=== PATIENT | male | born 1970 | race Caucasian/White ===

== ENCOUNTER 2017-11-03 15:49 | Inpatient (IN) ==
--- NOTE | 2017-11-03 16:29 | Emergency Department Note ---
ED Disposition Clinical Impression: Delirium CAP (community acquired pneumonia) Qualifiers: Laterality: right Lung location: lower lobe of lung Qualified Code(s): J18.1 - Lobar pneumonia, unspecified organism Acute renal failure Qualifiers: Acute renal failure type: unspecified Qualified Code(s): N17.9 - Acute kidney failure, unspecified Disposition: Still a Patient Condition on Discharge: Fair - Critical Care Critical Care Time: No Attestation: On 11/03/17, the high probability of a clinically significant, sudden or life threatening deterioration of the following system(s) required my full and direct attention, intervention and personal management. The time I documented below is in addition to time spent performing reported procedures but includes the following listed in this critical care notation. Medical Decision Making - [place] Inquiry Pt receiving controlled substance: No Vital Signs: 11/03/17 15:55 11/03/17 16:20 Temperature 103.2 F H Temperature Source Oral Pulse Rate [Left Radial] 104 H Respiratory Rate 20 Blood Pressure [Right Arm] 152/84 Blood Pressure Mean [Right Arm] 106 Blood Pressure Position [Right Arm] Sitting 02 Sat by Pulse Oximetry 93 L Oxygen Delivery Method Room Air - Lab Data Lab Results 11/03/17 16:20: WBC 14.3 H, RBC 4.53 L, Hgb 13.6 L, Hct 39.0 L, MCV 86.2, MCH 30.0, MCHC 34.8, RDW 13.4, Plt Count 216 D, MPV 8.4, Neut % (Auto) 91.4 H, Lymph % (Auto) 4.4 L, [place] % (Auto) 3.7, Eos % (Auto) 0.2, Baso % (Auto) 0.3, Neut # (Auto) 13.1 H, Lymph # (Auto) 0.6 L, [place] # (Auto) 0.5, Eos # (Auto) 0.0 , Baso # (Auto) 0.0, Total Counted 100, Neutrophils % (Manual) 93 H, Band Neutrophils % 3.0, Lymphocytes % (Manual) 1 L, Monocytes % (Manual) 2, Metamyelocytes % 1.0, Platelet Estimate Normal, RBC Morphology Normal 11/03/17 16:20: Sodium 128 L, Potassium 3.8, Chloride 96 L, Carbon Dioxide 22, Anion Gap 13.8, BUN 18 D, Creatinine 2.25 H, Estimated Creat Clear 50, Estimated GFR 32 L, Est GFR ( Amer) 38 L, Glucose 116 H, Calcium 8.3 L, Total Bilirubin 0.7, AST 28 D, ALT 11 L D, Alkaline Phosphatase 107, Total Protein 6.4, Albumin 2.3 L, Globulin 4.1 H, Albumin/Globulin Ratio 0.6 L 11/03/17 16:20: Lactic Acid 1.5 11/03/17 17:00: Urine Color Yellow, Urine Appearance Clear, Urine pH 6.0, Ur Specific [place] >= 1.030, Urine Protein 2+, Urine Glucose (UA) Negative, Urine Ketones Negative, Urine Blood 3+, Urine Nitrate Negative, Urine Bilirubin Negative, Urine Urobilinogen 0.2, Ur Leukocyte Esterase Negative, Urine RBC 5-10 , Urine WBC 3-5, Ur Squamous Epith Cells 10-20, Urine Bacteria 2+, Hyaline Casts 3-5, Urine Mucus 2+ Result diagrams: 11/03/17 16:20 11/03/17 16:20 Orders (Tests/Meds): ED MEDICATIONS Generic Name Dose Route Start Last Admin Trade Name Freq PRN Reason Stop Dose Admin Acetaminophen 650 mg 11/03/17 17:23 Acetaminophen 325mg Tab PO 12/03/17 17:22 Q4HP PRN As Needed for Fever or Pain Amlodipine Besylate 10 mg 11/04/17 09:00 Norvasc 10mg Tablet PO 12/04/17 08:59 DAILY [facility] Aspirin 81 mg 11/04/17 09:00 Aspirin 81mg Chewable Tablet PO 12/04/17 08:59 DAILY [facility] Carvedilol 25 mg 11/03/17 21:00 Coreg 25mg Tablet PO 12/03/17 20:59 BID [facility] Ceftriaxone Sodium 1 gm/ 50 mls @ 100 mls/hr 11/04/17 17:15 Sodium Chloride IV 11/17/17 17:14 Q24H [facility] Protocol Sodium Chloride 1,000 mls @ 100 mls/hr 11/03/17 17:23 Sod Chlor 0.9% 1000ml Bag IV 12/03/17 17:22 .Q10H [facility]IK[facility] Azithromycin 500 mg/ Sodium 250 mls @ 250 mls/hr 11/04/17 17:15 Chloride IV 11/17/17 17:14 Q24H [facility] Protocol Non-Formulary Medication 80 mg 11/04/17 09:00 Atorvastatin Calcium [Atorvastatin 80mg Tab] PO 12/04/17 08:59 DAILY [facility] Non-Formulary Medication 60 mg 11/04/17 09:00 Isosorbide Mononitrate [Isosorbide Mononitrate Er] PO 12/04/17 08:59 DAILY [facility] Discontinued Medications Generic Name Dose Route Start Last Admin Trade Name Zafarq PRN Reason Stop Dose Admin Acetaminophen 650 mg 11/03/17 16:45 11/03/17 16:46 Acetaminophen 325mg Tab PO 11/03/17 16:46 650 mg ONCE ONE Administration Sodium Chloride 1,000 mls @ 999 mls/hr 11/03/17 16:30 11/03/17 16:25 Sod Chlor 0.9% 1000ml Bag IV 11/03/17 17:30 999 mls/hr .Q1H1M MAIKEL Administration Ceftriaxone Sodium 1 gm/ 50 mls @ 100 mls/hr 11/03/17 17:15 Sodium Chloride IV 11/17/17 17:14 Q24H [facility] Protocol Azithromycin 500 mg/ Sodium 250 mls @ 250 mls/hr 11/03/17 17:15 Chloride IV 11/17/17 17:14 Q24H [facility] Protocol Sodium Chloride 3 ml 11/03/17 17:01 Sodium Chloride 3% 15ml Neb IH 11/03/17 17:02 ONCE ONE ORDERS Category Date Time Status Drug Screen,Urine Stat Lab 11/03/17 17:00 Received Upper Respiratory Panel, PCR Stat Lab 11/03/17 17:00 Received Sputum Culture & Gram Stain Stat Micro 11/03/17 17:00 Received Urine Culture Stat Micro 11/03/17 17:00 Received - ECG Data Tracing #1 EKG interpreted by Gio Joseph MD: Rhythm: sinus tachycardia Rate: 101 [place]: normal Ectopy: none Conduction: normal ST Segment Changes: none T Wave Changes: none Q Waves: none No evidence of acute ischemia or injury - Physician Consults Physician Consulted: Carole Time: 17:12 Reason -: Admission Comment/Response: Agrees to admit the patient to the hospital. We discussed the patient's clinical information, including history, exam, laboratory and radiology results and ED course. Per hospital procedure, I will write temporary bridge inpatient orders on the patient. Specific orders requested by the admitting physician: Rocephin and Zithromax, IV fluids, recheck chemistry profile in the morning General Adult HPI - General Chief complaint: Altered Mental Status Stated complaint: Possible kidney failure Time Seen by Provider: 11/03/17 16:29 Mode of Arrival: Wheelchair Limitations: No Limitations Description of Symptoms (Recalled from ER Triage Doc. by RN): stated he has been having a fever, decreased appetite, cough and headache. States at times he has confusion, pt fell in the bathroom. says she witnessed the fall and he didnt hit anything just sat/fell on the toilet. All this started about 2 hours ago. - History of Present Illness HPI narrative: Ill for 2-3 days. Has a chronic cough, but in the past 2-3 days has begun producing sputum and has rhinorrhea. Has been running fevers. Was seen here 2 days ago and diagnosed with acute renal failure and urinary tract infection and was started on nitrofurantoin and blood pressure medication was decreased. Saw his sandwich hand the next day for follow-up. Since then has been feverish, delirious at times. Headaches episodically. Short of air. Continues with productive cough. - Related Data Home Medications Medication Instructions Recorded Confirmed Amlodipine Besylate [Amlodipine 10 mg PO DAILY 10/19/17 11/03/17 10mg Tab] Aspirin 81 mg PO DAILY 10/19/17 11/03/17 Atorvastatin Calcium [Atorvastatin 80 mg PO DAILY 10/19/17 11/03/17 80mg Tab] Carvedilol [Coreg 25mg Tablet] 25 mg PO BID 10/19/17 11/03/17 Isosorbide Mononitrate [Isosorbide 60 mg PO DAILY 10/19/17 11/03/17 Mononitrate ER] Nitrofurantoin Macrocrystal 100 mg PO BID 11/03/17 11/03/17 [Macrodantin 100mg capsule] Allergies Allergy/AdvReac Type Severity Reaction Status Date / Time lisinopril Allergy Verified 11/01/17 08:37 [facility] History I have reviewed the patient's past medical history: Yes Medical History: Denies:: Cancer, Diabetes Mellitus Type 1, Diabetes Mellitus Type 2, MRSA Amputation: No - Social History Smoking Status: Current every day smoker Tobacco Type: cigarettes Alcohol Intake: never - Psychiatric History Expresses thoughts of harming self/others: None Suicide Plan Description: No Plan ROS Obtained: Yes All systems reviewed & no additional complaints - Constitutional Constitutional: Reports fever(s), Reports weakness - ENT Ears, Nose, Mouth, and Throat: Reports nasal discharge - Cardiovascular Cardiovascular: Denies chest pain - Respiratory Respiratory: Yes cough, Yes dyspnea, Yes excessive phlegm production - Gastrointestinal Gastrointestingal: Denies: diarrhea, vomiting - Neurologic Neurologic: Reports confusion Physical Exam - General General appearance: alert, in no apparent distress - Head Head exam: atraumatic, normocephalic, normal inspection - Eye Eye exam: Present: normal appearance, PERRL, EOMI - ENT ENT exam: Present: normal exam, normal oropharynx, mucous membranes moist, TM's normal bilaterally, normal external ear exam - Neck Neck exam: Present: normal inspection, full ROM, trachea midline. Absent: meningismus, lymphadenopathy - Chest Chest inspection: Present: normal inspection, symmetric chest wall rise. Absent : tenderness - Respiratory Respiratory exam: Present: normal lung sounds bilaterally, other (Tachypnea and frequent cough). Absent: respiratory distress - Cardiovascular Cardiovascular exam: Present: regular rate, normal rhythm. Absent: JVD - Abdominal Exam Abdominal exam: Present: soft, normal bowel sounds. Absent: distention, tenderness, guarding - Extremities Exam Extremities exam: Present: normal inspection, full ROM, normal capillary refill. Absent: calf tenderness - Back Exam Back exam: Present: normal inspection. Absent: tenderness - Neurological Exam Neurological exam: Present: alert, oriented X3 - Psychiatric Psychiatric exam: Present: normal affect, normal mood - Skin Skin exam: Present: warm, dry, intact, normal color - Lymphatic Lymphatic Findings: no adenopathy
[2017-11-03 16:37] LABS: Basophils % 0.3 % (0.1-2.0); Eosinophils % 0.2 % (0.1-12.0); Hemoglobin 13.6 g/dL (14.1-18.0); Lymphocytes # 0.6 K/mm3 (0.7-4.5); Lymphocytes % 4.4 K/mm3 (10-50); Mean Corpuscular HGB Conc 34.8 g/dL (31.8-35.4); Mean Corpuscular Volume 86.2 fl (80-94); Mean Platelet Volume 8.4 fl (7.4-10.4); Monocytes # 0.5 K/mm3 (0.1-1.0); Monocytes % 3.7 % (1.7-9.3); Neutrophils # 13.1 K/mm3 (1.8-7.8); Neutrophils % 91.4 % (37.0-80.0); Platelet Count 216 K/mm3 (142-424); Red Blood Count 4.53 M/mm3 (4.60-6.20); Red Cell Distribution Width 13.4 % (11.5-17.5); White Blood Count 14.3 K/mm3 (4.8-10.8)
[2017-11-03 16:48] LABS: Albumin Level 2.3 gm/dL (3.4-5.0); Albumin/Globulin Ratio 0.6 (1.1-1.8); Anion Gap 13.8 mEq/L (5-15); Bilirubin,Total 0.7 mg/dL (0.2-1.0); Calcium 8.3 mg/dL (8.5-10.1); Globulin 4.1 gm/dl (1.3-3.2); Potassium 3.8 mmoL/L (3.5-5.1); Total Protein,Serum 6.4 gm/dL (6.4-8.2)
[2017-11-03 17:01] LABS: Lymphocytes % 1 % (10-50); Monocytes % 2 % (2-9); Neutrophils % 93 % (42-76); Total Cells Counted 100
[2017-11-03 17:02] LABS: RBC Morphology Normal
[2017-11-03 17:11] LABS: Microscopic, Urine URINE MICROSCOPIC (MICROSCOPIC)
[2017-11-03 17:13] LABS: Coronavirus 229E Not Detected (NotDetected); Coronavirus NL63 Not Detected (NotDetected); Coronavirus OC43 Not Detected (NotDetected); Coronovirus HKU1,PCR Not Detected (NotDetected)
[2017-11-03 17:18] LABS: Appearance,Urine CLEAR (Clear); Bilirubin,Urine Negative (Negative); Blood, Urine 3+ (Negative); Color,Urine YELLOW (Yellow); Glucose,Urine (UA) Negative (Negative); Ketones,Urine Negative (Negative); Leukocyte Esterase,Urine Negative (Negative); Protein,Urine 2+ (Negative); Specific Gravity, Urine >= 1.030 (1.005-1.030); Urobilinogen,Urine 0.2 EU/dl (0.2)
[2017-11-03 17:38] LABS: Bacteria,Urine 2+ /lpf; Mucus,Urine 2+ /lpf
[2017-11-03 17:56] LABS: Amphetamine/Metha Screen,Urine Negative ng/mL (<1000); Barbiturates Screen,Urine Negative ng/mL (<200); Benzodiazepines Screen,Urine Negative ng/mL (200); Cannabinoid Screen,Urine Negative ng/mL (<50); Cocaine Screen,Urine Negative ng/g (<300); Methadone Screen,Urine Negative ng/mL (<300); Opiate Screen,Urine Negative ng/mL (<300); Phencyclidine Screen,Urine Negative ng/mL (<25)
[2017-11-04 07:15] LABS: Basophils % 0.2 % (0.1-2.0); Eosinophils % 0.1 % (0.1-12.0); Hemoglobin 13.5 g/dL (14.1-18.0); Lymphocytes # 0.5 K/mm3 (0.7-4.5); Lymphocytes % 4.4 K/mm3 (10-50); Mean Corpuscular HGB Conc 34.6 g/dL (31.8-35.4); Mean Corpuscular Hemoglobin 30.7 pg (27.0-31.2); Mean Corpuscular Volume 88.8 fl (80-94); Mean Platelet Volume 8.8 fl (7.4-10.4); Monocytes # 0.2 K/mm3 (0.1-1.0); Monocytes % 1.6 % (1.7-9.3); Neutrophils % 93.7 % (37.0-80.0); Platelet Count 206 K/mm3 (142-424); Red Blood Count 4.39 M/mm3 (4.60-6.20); Red Cell Distribution Width 13.8 % (11.5-17.5); White Blood Count 10.6 K/mm3 (4.8-10.8)
--- NOTE | 2017-11-04 07:29 | Pharmacy Consult Notes ---
[facility] Pharmacy VTE Monitoring - Patient Demographics Admission date: 11/03/17 Report Date: 11/04/17 Time: 07:28 Allergies/Adverse Reactions: Patient Allergies lisinopril Allergy (Verified 11/01/17 08:37) Height: 1.8 m Weight: 91.626 kg Patient Problems: Current Active Problems Acute renal failure (Acute) CAP (community acquired pneumonia) (Acute) Delirium (Acute) - VTE Risk Labs: VTE Related Lab Results Hgb 13.5 g/dL (14.1-18.0) L 11/04/17 06:44 Hct 39.0 % (42.0-52.0) L 11/04/17 06:44 Plt Count 206 K/mm3 (142-424) 11/04/17 06:44 BUN 18 mg/dL (7-18) D 11/03/17 16:20 Creatinine 2.25 mg/dL (0.70-1.30) H 11/03/17 16:20 Estimated Creat Clear 50 mL/min (0-300) 11/03/17 16:20 Was VTE Risk Assessment Performed: Yes VTE Risk Level: Low Risk - Prophylaxis VTE Prophylaxis Ordered?: Yes Types of VTE Prophylaxis: TEDS Knee High Location of Applied Device: Bilateral Lower Extremeties - VTE Diagnosis Confirmed Treatment or plan recommended: Continue Current Treatment
--- NOTE | 2017-11-04 08:47 | History & Physical Report ---
*Admission Date: 11/03/17 <Makenzie Dey 11/04/17 08:50> *Chief complaint: SOA, cough, increased UOP <Makenzie Dey 11/04/17 08:50> *History of present illness: Mr. Salguero is a 47-year-old male patient of Dr. Jay. He states last Wednesday he began having body aches and a fever. He presented to the emergency room on Wednesday and was tested for flu and strep. These were both negative he was found to have a UTI and renal failure. Some of his medications were adjusted and he was started on antibiotics for a UTI. He then followed up with his [employer] on Wednesday who agreed with the medication changes and wanted him to follow-up in his office on Wednesday. The patient states he developed a cough and became short of breath. He continued to have suprapubic pain and was having diarrhea. He was aching and therefore presented to the emergency room. He was found to have a pneumonia as well as a UTI. He was admitted for further evaluation and treatment. Of note, he does work in a [employer]. <Makenzie Dey 11/04/17 08:53> [facility] History Medical History: Reports:: Hyperlipidemia, Hypertension, Kidney Stones, Myocardial Infarction Denies:: Cancer, Diabetes Mellitus Type 1, Diabetes Mellitus Type 2, MRSA < Makenzie Dey 11/04/17 08:50> Other Medical History: Reports: Sinus Problems <Makenzie Dey 11/04/17 08:50 > Other Surgeries: Yes: Cardiac Catheterization <Makenzie Dey 11/04/17 08:50> Amputation: No <Makenzie Dey 11/04/17 08:50> Fractures: No <Makenzie Dey 11/04/17 08:50> - *Social History Educational Level: Attended High School <Makenzie Dey 11/04/17 08:50> Smoking Status: Current every day smoker <Makenzie Dey 11/04/17 08:50> Tobacco Type: cigarettes <Makenzie Dey 11/04/17 08:50> # Packs/Day (cigarettes): 1 <Makenzie Dey 11/04/17 08:50> Alcohol Intake: never <Makenzie Dey 11/04/17 08:50> Occupational Status: employed <Makenzie Dey 11/04/17 08:50> Housing: house <Makenzie Dey 11/04/17 08:50> Household Members: significant other, family, children <aMkenzie Dey 08:50> - Psychiatric History Expresses thoughts of harming self/others: None <Makenzie Dey 11/04/17 08: 50> Suicide Plan Description: No Plan <Makenzie Dey 11/04/17 08:50> *Family Hx:: Diabetes, Heart Attack, Hyperlipidemia, Hypertension <Makenzie Dey 11/04/17 08:50> Review of Systems - Constitutional Reports body ache(s), Reports chills, Reports fever(s) <Makenzie Dey 08:50> - Eyes Denies blurry vision, Denies double vision <Makenzie Dey 11/04/17 08:50> - ENT Reports nasal congestion, Denies sore throat <Makenzie Dey 11/04/17 08:50> - *Cardiovascular Reports chest pain (with cough), Denies rapid, pounding, or irregular heartbeat <Bryant Deya 11/04/17 08:50> - *Respiratory Reports cough, Reports shortness of breath, Reports wheezing <Bryant Deya 11/04/17 08:50> - *Gastrointestinal Reports loose stools, Denies nausea, Denies vomiting <Makenzie Dey 08:50> - *Genitourinary Reports difficulty urinating, Reports painful urination <Bryant Deya 11/04 08:50> - *Musculoskeletal Reports joint pain (knees and ankles) <Bryant Deya 11/04/17 08:50> - *Neurologic Reports confusion, Reports headache(s), Reports dizziness, Reports weakness < Makenzie Dey 11/04/17 08:50> Meds Home Medications Medication Instructions Recorded Confirmed Type Amlodipine Besylate [Amlodipine 10 mg PO DAILY 10/19/17 11/03/17 History 10mg Tab] Aspirin 81 mg PO DAILY 10/19/17 11/03/17 History Atorvastatin Calcium [Atorvastatin 80 mg PO DAILY 10/19/17 11/03/17 History 80mg Tab] Carvedilol [Coreg 25mg Tablet] 25 mg PO BID 10/19/17 11/03/17 History Isosorbide Mononitrate [Isosorbide 60 mg PO DAILY 10/19/17 11/03/17 History Mononitrate ER] Nitrofurantoin Macrocrystal 100 mg PO BID 11/03/17 11/03/17 History [Macrodantin 100mg capsule] <CaroleTristonRohan - 11/04/17 09:19> Allergies Allergy/AdvReac Type Severity Reaction Status Date / Time lisinopril Allergy Verified 11/01/17 08:37 <Rohan Lam - 11/04/17 09:19> Exam Vital signs and Labs for Last 24 Hours: Temp Pulse Resp BP Pulse Ox 98.5 F 99 H 20 106/62 95 11/04/17 08:00 11/04/17 08:00 11/04/17 08:00 11/04/17 08:00 11/04/17 08:00 Laboratory Results - last 24 hr 11/03/17 16:20: WBC 14.3 H, RBC 4.53 L, Hgb 13.6 L, Hct 39.0 L, MCV 86.2, MCH 30.0, MCHC 34.8, RDW 13.4, Plt Count 216 D, MPV 8.4, Neut % (Auto) 91.4 H, Lymph % (Auto) 4.4 L, [place] % (Auto) 3.7, Eos % (Auto) 0.2, Baso % (Auto) 0.3, Neut # (Auto) 13.1 H, Lymph # (Auto) 0.6 L, [place] # (Auto) 0.5, Eos # (Auto) 0.0 , Baso # (Auto) 0.0, Total Counted 100, Neutrophils % (Manual) 93 H, Band Neutrophils % 3.0, Lymphocytes % (Manual) 1 L, Monocytes % (Manual) 2, Metamyelocytes % 1.0, Platelet Estimate Normal, RBC Morphology Normal 11/03/17 16:20: Sodium 128 L, Potassium 3.8, Chloride 96 L, Carbon Dioxide 22, Anion Gap 13.8, BUN 18 D, Creatinine 2.25 H, Estimated Creat Clear 50, Estimated GFR 32 L, Est GFR ( Amer) 38 L, Glucose 116 H, Calcium 8.3 L, Total Bilirubin 0.7, AST 28 D, ALT 11 L D, Alkaline Phosphatase 107, Total Protein 6.4, Albumin 2.3 L, Globulin 4.1 H, Albumin/Globulin Ratio 0.6 L 11/03/17 16:20: Lactic Acid 1.5 11/03/17 17:00: Urine Color Yellow, Urine Appearance Clear, Urine pH 6.0, Ur Specific [place] >= 1.030, Urine Protein 2+, Urine Glucose (UA) Negative, Urine Ketones Negative, Urine Blood 3+, Urine Nitrate Negative, Urine Bilirubin Negative, Urine Urobilinogen 0.2, Ur Leukocyte Esterase Negative, Urine RBC 5-10 , Urine WBC 3-5, Ur Squamous Epith Cells 10-20, Urine Bacteria 2+, Hyaline Casts 3-5, Urine Mucus 2+ 11/03/17 17:00: Urine Opiates Screen Negative, Ur Barbituates Screen Negative, Ur Phencyclidine Scrn Negative, Ur Amphetamines Screen Negative, U Methamphetamines Scrn Negative, U Benzodiazepines Scrn Negative, Urine Cocaine Screen Negative, U Marijuana (THC) Screen Negative 11/03/17 17:00: Chlamy pneumoniae PCR Not detected, Adenovirus (PCR) Not detected, B.parapertussis DNA PCR Not detected, Coronavirus OC43 (PCR) Not detected, Coronavirus HKU1 (PCR) Not detected, Coronavirus 229E (PCR) Not detected, Coronavirus NL63 (PCR) Not detected, Human Metapneumovir PCR Not detected, Influenza A (H1) PCR Not detected, Influ A (H1N1/09) PCR Not detected , Influenza A (H3) PCR Not detected, Influenza Type A (PCR) Not detected, Influenza Type B (PCR) Not detected, M. pneumoniae (PCR) Not detected, Parainfluenza 1 (PCR) Not detected, Parainfluenza 2 (PCR) Not detected, Parainfluenza 3 (PCR) Not detected, Parainfluenza 4 (PCR) Not detected, RSV (PCR ) Not detected, Entero/Rhino (PCR) Not detected 11/04/17 06:44: WBC 10.6 D, RBC 4.39 L, Hgb 13.5 L, Hct 39.0 L, MCV 88.8, MCH 30.7, MCHC 34.6, RDW 13.8, Plt Count 206, MPV 8.8, Neut % (Auto) 93.7 H, Lymph % (Auto) 4.4 L, [place] % (Auto) 1.6 L, Eos % (Auto) 0.1, Baso % (Auto) 0.2, Neut # (Auto) 10.0 H, Lymph # (Auto) 0.5 L, [place] # (Auto) 0.2, Eos # (Auto) 0.0, Baso # (Auto) 0.0 11/04/17 06:44: Sodium 133 L, Potassium 4.0, Chloride 100, Carbon Dioxide 22, Anion Gap 15.0, BUN 24 H D, Creatinine 2.37 H, Estimated Creat Clear 51, Estimated GFR 30 L, Est GFR ( Amer) 36 L, Glucose 105 <UnderwoodRohan - 11/04/17 09:19> Temp Pulse Resp BP Pulse Ox 98.7 F 84 20 103/46 95 11/04/17 04:00 11/04/17 04:00 11/04/17 04:00 11/04/17 04:00 11/04/17 04:00 Laboratory Results - last 24 hr 11/03/17 16:20: WBC 14.3 H, RBC 4.53 L, Hgb 13.6 L, Hct 39.0 L, MCV 86.2, MCH 30.0, MCHC 34.8, RDW 13.4, Plt Count 216 D, MPV 8.4, Neut % (Auto) 91.4 H, Lymph % (Auto) 4.4 L, [place] % (Auto) 3.7, Eos % (Auto) 0.2, Baso % (Auto) 0.3, Neut # (Auto) 13.1 H, Lymph # (Auto) 0.6 L, [place] # (Auto) 0.5, Eos # (Auto) 0.0 , Baso # (Auto) 0.0, Total Counted 100, Neutrophils % (Manual) 93 H, Band Neutrophils % 3.0, Lymphocytes % (Manual) 1 L, Monocytes % (Manual) 2, Metamyelocytes % 1.0, Platelet Estimate Normal, RBC Morphology Normal 11/03/17 16:20: Sodium 128 L, Potassium 3.8, Chloride 96 L, Carbon Dioxide 22, Anion Gap 13.8, BUN 18 D, Creatinine 2.25 H, Estimated Creat Clear 50, Estimated GFR 32 L, Est GFR ( Amer) 38 L, Glucose 116 H, Calcium 8.3 L, Total Bilirubin 0.7, AST 28 D, ALT 11 L D, Alkaline Phosphatase 107, Total Protein 6.4, Albumin 2.3 L, Globulin 4.1 H, Albumin/Globulin Ratio 0.6 L 11/03/17 16:20: Lactic Acid 1.5 11/03/17 17:00: Urine Color Yellow, Urine Appearance Clear, Urine pH 6.0, Ur Specific [place] >= 1.030, Urine Protein 2+, Urine Glucose (UA) Negative, Urine Ketones Negative, Urine Blood 3+, Urine Nitrate Negative, Urine Bilirubin Negative, Urine Urobilinogen 0.2, Ur Leukocyte Esterase Negative, Urine RBC 5-10 , Urine WBC 3-5, Ur Squamous Epith Cells 10-20, Urine Bacteria 2+, Hyaline Casts 3-5, Urine Mucus 2+ 11/03/17 17:00: Urine Opiates Screen Negative, Ur Barbituates Screen Negative, Ur Phencyclidine Scrn Negative, Ur Amphetamines Screen Negative, U Methamphetamines Scrn Negative, U Benzodiazepines Scrn Negative, Urine Cocaine Screen Negative, U Marijuana (THC) Screen Negative 11/03/17 17:00: Chlamy pneumoniae PCR Not detected, Adenovirus (PCR) Not detected, B.parapertussis DNA PCR Not detected, Coronavirus OC43 (PCR) Not detected, Coronavirus HKU1 (PCR) Not detected, Coronavirus 229E (PCR) Not detected, Coronavirus NL63 (PCR) Not detected, Human Metapneumovir PCR Not detected, Influenza A (H1) PCR Not detected, Influ A (H1N1/09) PCR Not detected , Influenza A (H3) PCR Not detected, Influenza Type A (PCR) Not detected, Influenza Type B (PCR) Not detected, M. pneumoniae (PCR) Not detected, Parainfluenza 1 (PCR) Not detected, Parainfluenza 2 (PCR) Not detected, Parainfluenza 3 (PCR) Not detected, Parainfluenza 4 (PCR) Not detected, RSV (PCR ) Not detected, Entero/Rhino (PCR) Not detected 11/04/17 06:44: WBC 10.6 D, RBC 4.39 L, Hgb 13.5 L, Hct 39.0 L, MCV 88.8, MCH 30.7, MCHC 34.6, RDW 13.8, Plt Count 206, MPV 8.8, Neut % (Auto) 93.7 H, Lymph % (Auto) 4.4 L, [place] % (Auto) 1.6 L, Eos % (Auto) 0.1, Baso % (Auto) 0.2, Neut # (Auto) 10.0 H, Lymph # (Auto) 0.5 L, [place] # (Auto) 0.2, Eos # (Auto) 0.0, Baso # (Auto) 0.0 11/04/17 06:44: Sodium 133 L, Potassium 4.0, Chloride 100, Carbon Dioxide 22, Anion Gap 15.0, BUN 24 H D, Creatinine 2.37 H, Estimated Creat Clear 51, Estimated GFR 30 L, Est GFR ( Amer) 36 L, Glucose 105 <Makenzie Dey - 11/04/17 08:50> I & O for Last 24 hours: Intake & Output 11/01/17 11/02/17 11/03/17 11/04/17 11:59 11:59 11:59 11:59 Intake Total 120 / 120 Balance 120 / 120 Weight 202 lb <Rohan Lam - 11/04/17 09:19> Intake & Output 11/01/17 11/02/17 11/03/17 11/04/17 11:59 11:59 11:59 11:59 Weight 202 lb <Makenzie Dey - 11/04/17 08:50> Microbiology Reports for the Last 24 Hours: Microbiology 11/03/17 17:00 Sputum - Expectorated Sputum Gram Stain - Final 11/03/17 17:00 Sputum - Expectorated Sputum Sputum Culture - Preliminary 11/03/17 17:00 Urine,Clean Catch Urine Culture - Preliminary <Rohan Lam - 11/04/17 09:19> Microbiology 11/03/17 17:00 Sputum - Expectorated Sputum Gram Stain - Final 11/03/17 17:00 Sputum - Expectorated Sputum Sputum Culture - Preliminary 11/03/17 17:00 Urine,Clean Catch Urine Culture - Preliminary <Makenzie Dey - 11/04/17 08:50> - Constitutional Comments: Does not appear to feel well, coughing [facility] 08:[facility]> - *Routine HEENT Exam Head: Present: normocephalic, atraumatic [facility] 11/04/17 08:50> Eye: Present: EOMI, PERRL [facility] 08:[facility]> ENT: Present: mucous membranes moist [facility] 11/04/17 08:50> - *Routine Neck Exam Present: supple, full ROM [facility]/17 08:50> - *Routine Respiratory Exam Present: wheezes (bilaterally) [facility] 11/04/17 08:50> - *Routine Cardiovascular Exam Present: RRR [facility] 11/04/17 08:50> - *Routine Abdominal Exam Present: soft, normoactive bowel sounds, tenderness (suprapubic) [facility] 11/04/17 08:50> - *Routine Extremities Exam Absent: edema [facility] 11/04/17 08:50> - *Routine Skin Exam Present: intact [facility] 11/04/17 08:50> - *Routine Neurological Exam Present: alert, oriented X3 [facility] 11/04/17 08:50> H&P: Result - Labs Labs: Short CBC 11/03/17 11/04/17 Range/Units 16:20 06:44 WBC 14.3 H 10.6 D (4.8-10.8) K/mm3 Hgb 13.6 L 13.5 L (14.1-18.0) g/dL Hct 39.0 L 39.0 L (42.0-52.0) % Plt Count 216 D 206 (142-424) K/mm3 BMP 11/03/17 11/04/17 16:20 06:44 Sodium 128 L 133 L Potassium 3.8 4.0 Chloride 96 L 100 Carbon Dioxide 22 22 BUN 18 D 24 H D Creatinine 2.25 H 2.37 H Glucose 116 H 105 Calcium 8.3 L Liver Function 11/03/17 Range/Units 16:20 Total Bilirubin 0.7 (0.2-1.0) mg/dL AST 28 D (15-37) U/L ALT 11 L D (12-78) U/L Alkaline Phosphatase 107 (46-116) U/L Albumin 2.3 L (3.4-5.0) gm/dL Urine 11/03/17 Range/Units 17:00 Urine Color Yellow (Yellow) Urine Appearance Clear (Clear) Urine pH 6.0 (5.0-8.5) Ur Specific [place] >= 1.030 (1.005-1.030) Urine Protein 2+ (Negative) Urine Glucose (UA) Negative (Negative) <Rohan Lam - 11/04/17 09:19> <Makenzie Dey - 11/04/17 08:50> - Impressions Head CT - nothing acute CXR - RLL pneumonia <Makenzie Dey - 11/04/17 08:50> Assessment and Plan (1) CAP (community acquired pneumonia) Current visit: Yes Status: Acute Qualifiers: Laterality: right Lung location: lower lobe of lung Qualified Code(s): J18.1 - Lobar pneumonia, unspecified organism Category: Medical Code(s): J18.9 - Pneumonia, unspecified organism (2) Urinary tract infection Current visit: No Status: Acute Qualifiers: Urinary tract infection type: site unspecified Hematuria presence: without hematuria Qualified Code(s): N39.0 - Urinary tract infection, site not specified Category: Medical Code(s): N39.0 - Urinary tract infection, site not specified (3) Acute renal failure Current visit: Yes Status: Acute Qualifiers: Acute renal failure type: unspecified Qualified Code(s): N17.9 - Acute kidney failure, unspecified Category: Medical Code(s): N17.9 - Acute kidney failure, unspecified (4) Delirium Current visit: Yes Status: Acute Category: Medical Code(s): R41.0 - Disorientation, unspecified (5) Hyperlipidemia Current visit: Yes Status: Chronic Category: Medical Code(s): E78.5 - Hyperlipidemia, unspecified (6) Hypertension Current visit: No Status: Chronic Qualifiers: Hypertension type: unspecified Qualified Code(s): I10 - Essential (primary ) hypertension Category: Medical Code(s): I10 - Essential (primary) hypertension (7) Musculoskeletal back pain Current visit: No Status: Acute Category: Medical Code(s): M54.9 - Dorsalgia, unspecified <Rohan Lam - 11/04/17 09:19> (1) CAP (community acquired pneumonia) Current visit: Yes Status: Acute Qualifiers: Laterality: right Lung location: lower lobe of lung Qualified Code(s): J18.1 - Lobar pneumonia, unspecified organism Category: Medical Code(s): J18.9 - Pneumonia, unspecified organism (2) Urinary tract infection Current visit: No Status: Acute Qualifiers: Urinary tract infection type: site unspecified Hematuria presence: without hematuria Qualified Code(s): N39.0 - Urinary tract infection, site not specified Category: Medical Code(s): N39.0 - Urinary tract infection, site not specified (3) Acute renal failure Current visit: Yes Status: Acute Qualifiers: Acute renal failure type: unspecified Qualified Code(s): N17.9 - Acute kidney failure, unspecified Category: Medical Code(s): N17.9 - Acute kidney failure, unspecified (4) Delirium Current visit: Yes Status: Acute Category: Medical Code(s): R41.0 - Disorientation, unspecified (5) Hyperlipidemia Current visit: Yes Status: Chronic Category: Medical Code(s): E78.5 - Hyperlipidemia, unspecified (6) Hypertension Current visit: No Status: Chronic Qualifiers: Hypertension type: unspecified Qualified Code(s): I10 - Essential (primary ) hypertension Category: Medical Code(s): I10 - Essential (primary) hypertension (7) Musculoskeletal back pain Current visit: No Status: Acute Category: Medical Code(s): M54.9 - Dorsalgia, unspecified <Makenzie Dey - 11/04/17 08:51> - Assessment and plan all Dx Assessment and Plan for all problems:: Saw patient, agree with above note. <Rohan Lam - 11/04/17 09:19> The patient has been started on antibiotics. Will await urine culture and sputum culture results. Will add duo nebs today. <Makenzie Dey - 11/04/17 08:53>
[2017-11-04 11:45] LABS: Lymphocytes % 6 % (10-50); Monocytes % 1 % (2-9); Neutrophils % 85 % (42-76); Total Cells Counted 100
[2017-11-04 11:49] LABS: RBC Morphology Normal
[2017-11-05 03:54] LABS: Creatine Kinase 331 U/L (39-308)
--- NOTE | 2017-11-05 08:26 | Progress Note ---
<Makenzie Dey - Last Filed: 11/05/17 08:24> Internal Medicine - PN: Subj *Date: 11/05/17 *Time: 08:24 Interval history: Patient states he is feeling slightly better today. He thinks his suprapubic pain is a little bit worse, but his shortness of breath has improved. He is still coughing up sputum. He slept off and on throughout the night and was able to eat a small amount of breakfast. Exam Vital signs and Labs for Last 24 Hours: Temp Pulse Resp BP Pulse Ox 99.4 F 104 H 24 155/81 91 L 11/05/17 07:46 11/05/17 07:46 11/05/17 07:46 11/05/17 07:46 11/05/17 07:46 Laboratory Results - last 24 hr 11/04/17 06:44: Total Counted 100, Neutrophils % (Manual) 85 H, Band Neutrophils % 8.0, Lymphocytes % (Manual) 6 L, Monocytes % (Manual) 1 L, Platelet Estimate Normal, RBC Morphology Normal 11/05/17 03:20: Total Creatine Kinase 331 H, CK-MB (CK-2) 0.9, CK-MB (CK-2) Rel Index 0.3, Troponin I < 0.02 I & O for Last 24 hours: Intake & Output 11/02/17 11/03/17 11/04/17 11/05/17 11:59 11:59 11:59 11:59 Intake Total 120 / 120 2749 / 2749 Balance 120 / 120 2749 / 2749 Weight 202 lb Microbiology Reports for the Last 24 Hours: Microbiology 11/03/17 17:00 Sputum - Expectorated Sputum Gram Stain - Final 11/03/17 17:00 Sputum - Expectorated Sputum Sputum Culture - Preliminary 11/03/17 17:00 Urine,Clean Catch Urine Culture - Preliminary - Constitutional no acute distress - *Routine Respiratory Exam Present: rales (RLL), wheezes (less) - *Routine Cardiovascular Exam Present: RRR - *Routine Abdominal Exam Present: soft, normoactive bowel sounds, tenderness (suprapubic) - *Routine Extremities Exam Absent: edema Assessment and Plan (1) CAP (community acquired pneumonia) Current visit: Yes Status: Acute Qualifiers: Laterality: right Lung location: lower lobe of lung Qualified Code(s): J18.1 - Lobar pneumonia, unspecified organism Category: Medical Code(s): J18.9 - Pneumonia, unspecified organism (2) Urinary tract infection Current visit: No Status: Acute Qualifiers: Urinary tract infection type: site unspecified Hematuria presence: without hematuria Qualified Code(s): N39.0 - Urinary tract infection, site not specified Category: Medical Code(s): N39.0 - Urinary tract infection, site not specified (3) Acute renal failure Current visit: Yes Status: Acute Qualifiers: Acute renal failure type: unspecified Qualified Code(s): N17.9 - Acute kidney failure, unspecified Category: Medical Code(s): N17.9 - Acute kidney failure, unspecified (4) Delirium Current visit: Yes Status: Acute Category: Medical Code(s): R41.0 - Disorientation, unspecified (5) Hyperlipidemia Current visit: Yes Status: Chronic Category: Medical Code(s): E78.5 - Hyperlipidemia, unspecified (6) Hypertension Current visit: No Status: Chronic Qualifiers: Hypertension type: unspecified Qualified Code(s): I10 - Essential (primary ) hypertension Category: Medical Code(s): I10 - Essential (primary) hypertension (7) Musculoskeletal back pain Current visit: No Status: Acute Category: Medical Code(s): M54.9 - Dorsalgia, unspecified - Assessment and plan all Dx Assessment and Plan for all problems:: Awaiting chest x-ray report. We will get labs tomorrow. <Rohan Lam - Last Filed: 11/05/17 08:55> Internal Medicine - PN: Subj *Date: 11/05/17 *Time: 08:54 Exam Vital signs and Labs for Last 24 Hours: Temp Pulse Resp BP Pulse Ox 99.4 F 104 H 24 155/81 91 L 11/05/17 07:46 11/05/17 07:46 11/05/17 07:46 11/05/17 07:46 11/05/17 07:46 Laboratory Results - last 24 hr 11/03/17 17:00: Urine Color Yellow, Urine Appearance Clear, Urine pH 6.0, Ur Specific [place] >= 1.030, Urine Protein 2+, Urine Glucose (UA) Negative, Urine Ketones Negative, Urine Blood 3+, Urine Nitrate Negative, Urine Bilirubin Negative, Urine Urobilinogen 0.2, Ur Leukocyte Esterase Negative, Urine RBC 5-10 , Urine WBC 3-5, Ur Squamous Epith Cells 10-20, Urine Bacteria 2+, Hyaline Casts 3-5, Urine Mucus 2+ 11/04/17 06:44: Total Counted 100, Neutrophils % (Manual) 85 H, Band Neutrophils % 8.0, Lymphocytes % (Manual) 6 L, Monocytes % (Manual) 1 L, Platelet Estimate Normal, RBC Morphology Normal 11/05/17 03:20: Total Creatine Kinase 331 H, CK-MB (CK-2) 0.9, CK-MB (CK-2) Rel Index 0.3, Troponin I < 0.02 I & O for Last 24 hours: Intake & Output 11/02/17 11/03/17 11/04/17 11/05/17 11:59 11:59 11:59 11:59 Intake Total 120 / 120 2749 / 2749 Balance 120 / 120 2749 / 2749 Weight 202 lb Microbiology Reports for the Last 24 Hours: Microbiology 11/03/17 17:00 Urine,Clean Catch Urine Culture - Preliminary Gram Positive Cocci 11/03/17 17:00 Sputum - Expectorated Sputum Gram Stain - Final 11/03/17 17:00 Sputum - Expectorated Sputum Sputum Culture - Preliminary Assessment and Plan (1) CAP (community acquired pneumonia) Current visit: Yes Status: Acute Qualifiers: Laterality: right Lung location: lower lobe of lung Qualified Code(s): J18.1 - Lobar pneumonia, unspecified organism Category: Medical Code(s): J18.9 - Pneumonia, unspecified organism (2) Urinary tract infection Current visit: No Status: Acute Qualifiers: Urinary tract infection type: site unspecified Hematuria presence: without hematuria Qualified Code(s): N39.0 - Urinary tract infection, site not specified Category: Medical Code(s): N39.0 - Urinary tract infection, site not specified (3) Acute renal failure Current visit: Yes Status: Acute Qualifiers: Acute renal failure type: unspecified Qualified Code(s): N17.9 - Acute kidney failure, unspecified Category: Medical Code(s): N17.9 - Acute kidney failure, unspecified (4) Delirium Current visit: Yes Status: Acute Category: Medical Code(s): R41.0 - Disorientation, unspecified (5) Hyperlipidemia Current visit: Yes Status: Chronic Category: Medical Code(s): E78.5 - Hyperlipidemia, unspecified (6) Hypertension Current visit: No Status: Chronic Qualifiers: Hypertension type: unspecified Qualified Code(s): I10 - Essential (primary ) hypertension Category: Medical Code(s): I10 - Essential (primary) hypertension (7) Musculoskeletal back pain Current visit: No Status: Acute Category: Medical Code(s): M54.9 - Dorsalgia, unspecified (8) Diarrhea Current visit: Yes Status: Acute Category: Medical Code(s): R19.7 - Diarrhea, unspecified - Assessment and plan all Dx Assessment and Plan for all problems:: Saw patient, will check diarrhea panel today.
[2017-11-06 07:03] LABS: Basophils % 0.2 % (0.1-2.0); Eosinophils % 0.4 % (0.1-12.0); Hematocrit 40.3 % (42.0-52.0); Hemoglobin 12.8 g/dL (14.1-18.0); Lymphocytes # 0.4 K/mm3 (0.7-4.5); Lymphocytes % 4.9 K/mm3 (10-50); Mean Corpuscular HGB Conc 31.6 g/dL (31.8-35.4); Mean Corpuscular Hemoglobin 28.9 pg (27.0-31.2); Mean Corpuscular Volume 91.4 fl (80-94); Monocytes # 0.3 K/mm3 (0.1-1.0); Neutrophils # 8.2 K/mm3 (1.8-7.8); Neutrophils % 91.6 % (37.0-80.0); Platelet Count 240 K/mm3 (142-424); Red Blood Count 4.41 M/mm3 (4.60-6.20); Red Cell Distribution Width 14.8 % (11.5-17.5)
[2017-11-06 07:12] LABS: Albumin Level 1.9 gm/dL (3.4-5.0); Albumin/Globulin Ratio 0.4 (1.1-1.8); Anion Gap 12.4 mEq/L (5-15); Bilirubin,Total 0.5 mg/dL (0.2-1.0); Calcium 8.6 mg/dL (8.5-10.1); Globulin 4.3 gm/dl (1.3-3.2); Potassium 4.4 mmoL/L (3.5-5.1); Total Protein,Serum 6.2 gm/dL (6.4-8.2)
[2017-11-06 08:18] LABS: Lymphocytes % 2 % (10-50); Monocytes % 2 % (2-9); Neutrophils % 96 % (42-76); Total Cells Counted 100
--- NOTE | 2017-11-06 08:24 | Progress Note ---
<Makenzie Dey - Last Filed: 11/06/17 08:21> Internal Medicine - PN: Subj *Date: 11/06/17 *Time: 08:21 Interval history: The patient is feeling better today. He states his abdominal pain has almost resolved. He is still wheezing and coughing. He was unable to sleep due to the steroids. He did eat well this morning. Exam Vital signs and Labs for Last 24 Hours: Temp Pulse Resp BP Pulse Ox 98.0 F 84 22 111/56 90 L 11/06/17 07:41 11/06/17 07:41 11/06/17 07:41 11/06/17 07:41 11/06/17 07:41 Laboratory Results - last 24 hr 11/03/17 17:00: Urine Color Yellow, Urine Appearance Clear, Urine pH 6.0, Ur Specific Herrick >= 1.030, Urine Protein 2+, Urine Glucose (UA) Negative, Urine Ketones Negative, Urine Blood 3+, Urine Nitrate Negative, Urine Bilirubin Negative, Urine Urobilinogen 0.2, Ur Leukocyte Esterase Negative, Urine RBC 5-10 , Urine WBC 3-5, Ur Squamous Epith Cells 10-20, Urine Bacteria 2+, Hyaline Casts 3-5, Urine Mucus 2+ 11/05/17 09:47: Stl Aeromonas (PCR) Not detected, Stl C. cayetanensis PCR Not detected, Stool Rotavirus (PCR) Not detected, Stl Adenov F 40/41 PCR Not detected, Stool Astrovirus (PCR) Not detected, Stool Campylobacter PCR Not detected, Stl C.difficile Tox PCR Not detected, Stool Cryptosporidium PCR Not detected, Stl E.coli Shiga Tox PCR Not detected, Stool E coli O157 PCR Not detected, Stl Enterotoxigenic E PCR Not detected, Stool EPEC (PCR) Not detected , Stool EAEC (PCR) Not detected, Stl E. histolytica PCR Not detected, Stool Giardia Lamblia PCR Not detected, Stool Salmonella PCR Not detected, Stool Sapovirus (PCR) Not detected, Stl P. shigelloides PCR Not detected, Stl Shigella /EIEC PCR Not detected, St Y.enterocolitica PCR Not detected, Stool Vibrio (PCR ) Not detected, Stl Vibrio cholerae PCR Not detected, Stl Norovirus GI/GII PCR Not detected 11/06/17 06:21: WBC 9.0, RBC 4.41 L, Hgb 12.8 L, Hct 40.3 L, MCV 91.4, MCH 28.9 , MCHC 31.6 L, RDW 14.8, Plt Count 240, MPV 9.0, Neut % (Auto) 91.6 H, Lymph % ( Auto) 4.9 L, [place] % (Auto) 3.0, Eos % (Auto) 0.4, Baso % (Auto) 0.2, Neut # ( Auto) 8.2 H, Lymph # (Auto) 0.4 L, [place] # (Auto) 0.3, Eos # (Auto) 0.0, Baso # ( Auto) 0.0, Total Counted 100, Neutrophils % (Manual) 96 H, Lymphocytes % (Manual ) 2 L, Monocytes % (Manual) 2, Platelet Estimate Normal 11/06/17 06:21: Sodium 129 L, Potassium 4.4, Chloride 101, Carbon Dioxide 20 L, Anion Gap 12.4, BUN 21 H, Creatinine 1.69 H D, Estimated Creat Clear 72, Estimated GFR 44 L, Est GFR ( Amer) 53 L D, Glucose 123 H, Calcium 8.6, Total Bilirubin 0.5, AST 151 H D, ALT 21 D, Alkaline Phosphatase 127 H, Total Protein 6.2 L, Albumin 1.9 L, Globulin 4.3 H, Albumin/Globulin Ratio 0.4 L I & O for Last 24 hours: Intake & Output 11/03/17 11/04/17 11/05/17 11/06/17 11:59 11:59 11:59 11:59 Intake Total 120 / 120 2749 / 2749 840 / 840 Output Total 150 / 150 Balance 120 / 120 2749 / 2749 690 / 690 Weight 202 lb Microbiology Reports for the Last 24 Hours: Microbiology 11/03/17 17:00 Urine,Clean Catch Urine Culture - Final Staphylococcus haemolyticus 11/03/17 16:30 Blood Blood Culture - Preliminary NO GROWTH AFTER 48 HOURS 11/03/17 16:30 Blood Blood Culture - Preliminary NO GROWTH AFTER 48 HOURS 11/03/17 17:00 Sputum - Expectorated Sputum Gram Stain - Final 11/03/17 17:00 Sputum - Expectorated Sputum Sputum Culture - Final Normal Respiratory Teresa - Constitutional no acute distress - *Routine Respiratory Exam Present: wheezes, crackles (right base) - *Routine Cardiovascular Exam Present: RRR - *Routine Abdominal Exam Present: soft, normoactive bowel sounds. Absent: tenderness - *Routine Extremities Exam Absent: edema Assessment and Plan (1) CAP (community acquired pneumonia) Current visit: Yes Status: Acute Qualifiers: Laterality: right Lung location: lower lobe of lung Qualified Code(s): J18.1 - Lobar pneumonia, unspecified organism Category: Medical Code(s): J18.9 - Pneumonia, unspecified organism (2) Urinary tract infection Problem details: D/T Staph Haemolyticus Current visit: No Status: Acute Qualifiers: Urinary tract infection type: site unspecified Hematuria presence: without hematuria Qualified Code(s): N39.0 - Urinary tract infection, site not specified Category: Medical Code(s): N39.0 - Urinary tract infection, site not specified (3) Acute renal failure Current visit: Yes Status: Acute Qualifiers: Acute renal failure type: unspecified Qualified Code(s): N17.9 - Acute kidney failure, unspecified Category: Medical Code(s): N17.9 - Acute kidney failure, unspecified (4) Delirium Current visit: Yes Status: Acute Category: Medical Code(s): R41.0 - Disorientation, unspecified (5) Hyperlipidemia Current visit: Yes Status: Chronic Category: Medical Code(s): E78.5 - Hyperlipidemia, unspecified (6) Hypertension Current visit: No Status: Chronic Qualifiers: Hypertension type: unspecified Qualified Code(s): I10 - Essential (primary ) hypertension Category: Medical Code(s): I10 - Essential (primary) hypertension (7) Musculoskeletal back pain Current visit: No Status: Acute Category: Medical Code(s): M54.9 - Dorsalgia, unspecified (8) Diarrhea Current visit: Yes Status: Acute Category: Medical Code(s): R19.7 - Diarrhea, unspecified - Assessment and plan all Dx Assessment and Plan for all problems:: Sputum and blood cultures have returned normal. Urine culture is positive for staph hemolyticus. Will likely add clindamycin to cover for this. Diarrhea panel was normal. Will discuss further care with Dr. Lam. <Rohan Lam - Last Filed: 11/06/17 08:45> Internal Medicine - PN: Subj *Date: 11/06/17 *Time: 08:44 Exam Vital signs and Labs for Last 24 Hours: Temp Pulse Resp BP Pulse Ox 98.0 F 84 22 111/56 90 L 11/06/17 07:41 11/06/17 07:41 11/06/17 07:41 11/06/17 07:41 11/06/17 07:41 Laboratory Results - last 24 hr 11/03/17 17:00: Urine Color Yellow, Urine Appearance Clear, Urine pH 6.0, Ur Specific Herrick >= 1.030, Urine Protein 2+, Urine Glucose (UA) Negative, Urine Ketones Negative, Urine Blood 3+, Urine Nitrate Negative, Urine Bilirubin Negative, Urine Urobilinogen 0.2, Ur Leukocyte Esterase Negative, Urine RBC 5-10 , Urine WBC 3-5, Ur Squamous Epith Cells 10-20, Urine Bacteria 2+, Hyaline Casts 3-5, Urine Mucus 2+ 11/05/17 09:47: Stl Aeromonas (PCR) Not detected, Stl C. cayetanensis PCR Not detected, Stool Rotavirus (PCR) Not detected, Stl Adenov F 40/41 PCR Not detected, Stool Astrovirus (PCR) Not detected, Stool Campylobacter PCR Not detected, Stl C.difficile Tox PCR Not detected, Stool Cryptosporidium PCR Not detected, Stl E.coli Shiga Tox PCR Not detected, Stool E coli O157 PCR Not detected, Stl Enterotoxigenic E PCR Not detected, Stool EPEC (PCR) Not detected , Stool EAEC (PCR) Not detected, Stl E. histolytica PCR Not detected, Stool Giardia Lamblia PCR Not detected, Stool Salmonella PCR Not detected, Stool Sapovirus (PCR) Not detected, Stl P. shigelloides PCR Not detected, Stl Shigella /EIEC PCR Not detected, St Y.enterocolitica PCR Not detected, Stool Vibrio (PCR ) Not detected, Stl Vibrio cholerae PCR Not detected, Stl Norovirus GI/GII PCR Not detected 11/06/17 06:21: WBC 9.0, RBC 4.41 L, Hgb 12.8 L, Hct 40.3 L, MCV 91.4, MCH 28.9 , MCHC 31.6 L, RDW 14.8, Plt Count 240, MPV 9.0, Neut % (Auto) 91.6 H, Lymph % ( Auto) 4.9 L, [place] % (Auto) 3.0, Eos % (Auto) 0.4, Baso % (Auto) 0.2, Neut # ( Auto) 8.2 H, Lymph # (Auto) 0.4 L, [place] # (Auto) 0.3, Eos # (Auto) 0.0, Baso # ( Auto) 0.0, Total Counted 100, Neutrophils % (Manual) 96 H, Lymphocytes % (Manual ) 2 L, Monocytes % (Manual) 2, Platelet Estimate Normal 11/06/17 06:21: Sodium 129 L, Potassium 4.4, Chloride 101, Carbon Dioxide 20 L, Anion Gap 12.4, BUN 21 H, Creatinine 1.69 H D, Estimated Creat Clear 72, Estimated GFR 44 L, Est GFR ( Amer) 53 L D, Glucose 123 H, Calcium 8.6, Total Bilirubin 0.5, AST 151 H D, ALT 21 D, Alkaline Phosphatase 127 H, Total Protein 6.2 L, Albumin 1.9 L, Globulin 4.3 H, Albumin/Globulin Ratio 0.4 L I & O for Last 24 hours: Intake & Output 11/03/17 11/04/17 11/05/17 11/06/17 11:59 11:59 11:59 11:59 Intake Total 120 / 120 2749 / 2749 840 / 840 Output Total 150 / 150 Balance 120 / 120 2749 / 2749 690 / 690 Weight 202 lb Microbiology Reports for the Last 24 Hours: Microbiology 11/03/17 17:00 Urine,Clean Catch Urine Culture - Final Staphylococcus haemolyticus 11/03/17 16:30 Blood Blood Culture - Preliminary NO GROWTH AFTER 48 HOURS 11/03/17 16:30 Blood Blood Culture - Preliminary NO GROWTH AFTER 48 HOURS 11/03/17 17:00 Sputum - Expectorated Sputum Gram Stain - Final 11/03/17 17:00 Sputum - Expectorated Sputum Sputum Culture - Final Normal Respiratory Teresa Assessment and Plan (1) CAP (community acquired pneumonia) Current visit: Yes Status: Acute Qualifiers: Laterality: right Lung location: lower lobe of lung Qualified Code(s): J18.1 - Lobar pneumonia, unspecified organism Category: Medical Code(s): J18.9 - Pneumonia, unspecified organism (2) Urinary tract infection Problem details: D/T Staph Haemolyticus Current visit: No Status: Acute Qualifiers: Urinary tract infection type: site unspecified Hematuria presence: without hematuria Qualified Code(s): N39.0 - Urinary tract infection, site not specified Category: Medical Code(s): N39.0 - Urinary tract infection, site not specified (3) Acute renal failure Current visit: Yes Status: Acute Qualifiers: Acute renal failure type: unspecified Qualified Code(s): N17.9 - Acute kidney failure, unspecified Category: Medical Code(s): N17.9 - Acute kidney failure, unspecified (4) Delirium Current visit: Yes Status: Acute Category: Medical Code(s): R41.0 - Disorientation, unspecified (5) Hyperlipidemia Current visit: Yes Status: Chronic Category: Medical Code(s): E78.5 - Hyperlipidemia, unspecified (6) Hypertension Current visit: No Status: Chronic Qualifiers: Hypertension type: unspecified Qualified Code(s): I10 - Essential (primary ) hypertension Category: Medical Code(s): I10 - Essential (primary) hypertension (7) Musculoskeletal back pain Current visit: No Status: Acute Category: Medical Code(s): M54.9 - Dorsalgia, unspecified (8) Diarrhea Current visit: Yes Status: Acute Category: Medical Code(s): R19.7 - Diarrhea, unspecified - Assessment and plan all Dx Assessment and Plan for all problems:: Saw patient, agree with above note.
--- NOTE | 2017-11-07 09:03 | Progress Note ---
Internal Medicine - PN: Subj *Date: 11/07/17 *Time: 09:01 Interval history: Patient feels better today, less abdominal pain, no fever overnight, less cough. Exam Vital signs and Labs for Last 24 Hours: Temp Pulse Resp BP Pulse Ox 98.0 F 72 18 94/53 93 L 11/07/17 07:52 11/07/17 07:52 11/07/17 07:52 11/07/17 07:52 11/07/17 07:52 Vital Signs Temp Pulse Pulse Resp BP BP Pulse Ox 11/07/17 07:52 98.0 F 72 18 94/53 93 L 11/07/17 05:33 67 89 L 11/07/17 04:00 97.5 F L 66 22 116/67 91 L 11/07/17 03:19 94 L 11/07/17 00:00 97.7 F 71 20 112/72 91 L 11/06/17 20:42 77 11/06/17 20:41 73 11/06/17 20:00 97.6 F 73 22 95/52 92 L 11/06/17 16:00 98.1 F 68 22 90/45 90 L 11/06/17 14:40 73 11/06/17 11:27 97.6 F 74 20 100/56 90 L 11/06/17 11:03 73 Intake and Output 11/06/17 11/07/17 11/07/17 19:59 03:59 11:59 Intake Total 2130 / 2130 240 / 240 1930 / 1930 Output Total 500 / 500 500 / 500 Balance 2130 / 2130 -260 / -260 1430 / 1430 Intake: Intake, Oral Amount 1200 / 1200 240 / 240 1080 / 1080 Intake, Total IV Amount 930 / 930 850 / 850 Azithromycin 500 mg In 0.9 % 250 / 250 Sodium Chloride 250 ml @ 250 mls/hr IV Q24H [facility] Rx#:[id number] Ceftriaxone Sodium 1 gm In 0.9 50 / 50 % Sodium Chloride 50 ml @ 100 mls/hr IV Q24H [facility] Rx#:[id number] Clindamycin Phosphate 600 mg In 100 / 100 100 / 100 0.9 % Sodium Chloride 100 ml @ 104 mls/hr IV Q8H [facility] Rx#: [id number] D5W/0.45% NaCl w/20mEq KCL 1, 1 / 1 000 ml @ 50 mls/hr IV .Q20H [facility] Rx#:[id number] D5W/0.9% NaCl w/20mEq KCL 1,000 529 / 529 750 / 750 ml @ 75 mls/hr IV .[id number] [facility] Rx#:[id number] Output: Output, Urine Amount 500 / 500 500 / 500 Other: Number of Voids 1 1 Number of Bowel Movements 1 I & O for Last 24 hours: Intake & Output 11/04/17 11/05/17 11/06/17 11/07/17 11:59 11:59 11:59 11:59 Intake Total 120 / 120 2749 / 2749 840 / 840 4300 / 4300 Output Total 150 / 150 1000 / 1000 Balance 120 / 120 2749 / 2749 690 / 690 3300 / 3300 Weight 202 lb Microbiology Reports for the Last 24 Hours: Microbiology 11/03/17 17:00 Urine,Clean Catch Urine Culture - Final Staphylococcus haemolyticus - Constitutional no acute distress - *Routine HEENT Exam ENT: Present: mucous membranes moist - *Routine Respiratory Exam Present: wheezes (rare), crackles (few on right side) Comments: better air movement today. - *Routine Cardiovascular Exam Present: RRR - *Routine Abdominal Exam Present: soft, normoactive bowel sounds. Absent: tenderness - *Routine Extremities Exam Absent: cyanosis, clubbing, edema Assessment and Plan (1) CAP (community acquired pneumonia) Current visit: Yes Status: Acute Qualifiers: Laterality: right Lung location: lower lobe of lung Qualified Code(s): J18.1 - Lobar pneumonia, unspecified organism Category: Medical Code(s): J18.9 - Pneumonia, unspecified organism (2) Urinary tract infection Problem details: D/T Staph Haemolyticus Current visit: No Status: Acute Qualifiers: Urinary tract infection type: site unspecified Hematuria presence: without hematuria Qualified Code(s): N39.0 - Urinary tract infection, site not specified Category: Medical Code(s): N39.0 - Urinary tract infection, site not specified (3) Acute renal failure Current visit: Yes Status: Acute Qualifiers: Acute renal failure type: unspecified Qualified Code(s): N17.9 - Acute kidney failure, unspecified Category: Medical Code(s): N17.9 - Acute kidney failure, unspecified (4) Delirium Current visit: Yes Status: Acute Category: Medical Code(s): R41.0 - Disorientation, unspecified (5) Hyperlipidemia Current visit: Yes Status: Chronic Category: Medical Code(s): E78.5 - Hyperlipidemia, unspecified (6) Hypertension Current visit: No Status: Chronic Qualifiers: Hypertension type: unspecified Qualified Code(s): I10 - Essential (primary ) hypertension Category: Medical Code(s): I10 - Essential (primary) hypertension (7) Musculoskeletal back pain Current visit: No Status: Acute Category: Medical Code(s): M54.9 - Dorsalgia, unspecified (8) Diarrhea Current visit: Yes Status: Acute Category: Medical Code(s): R19.7 - Diarrhea, unspecified - Assessment and plan all Dx Assessment and Plan for all problems:: Patient on triple antibiotic therapy and improving. Will saline lock IV, still requiring supplemental O2.
--- NOTE | 2017-11-07 11:18 | Progress Note ---
Internal Medicine - PN: Subj *Date: 11/07/17 *Time: 11:17 Exam Vital signs and Labs for Last 24 Hours: Temp Pulse Resp BP Pulse Ox 98.0 F 74 18 94/53 93 L 11/07/17 07:52 11/07/17 09:11 11/07/17 07:52 11/07/17 07:52 11/07/17 09:00 I & O for Last 24 hours: Intake & Output 11/04/17 11/05/17 11/06/17 11/07/17 23:59 23:59 23:59 23:59 Intake Total 2869 / 2869 480 / 480 2730 / 2730 1930 / 1930 Output Total 150 / 150 500 / 500 500 / 500 Balance 2869 / 2869 330 / 330 2230 / 2230 1430 / 1430 Weight 91.626 kg Assessment and Plan (1) CAP (community acquired pneumonia) Current visit: Yes Status: Acute Qualifiers: Laterality: right Lung location: lower lobe of lung Qualified Code(s): J18.1 - Lobar pneumonia, unspecified organism Category: Medical Code(s): J18.9 - Pneumonia, unspecified organism (2) Urinary tract infection Problem details: D/T Staph Haemolyticus Current visit: No Status: Acute Qualifiers: Urinary tract infection type: site unspecified Hematuria presence: without hematuria Qualified Code(s): N39.0 - Urinary tract infection, site not specified Category: Medical Code(s): N39.0 - Urinary tract infection, site not specified (3) Acute renal failure Current visit: Yes Status: Acute Qualifiers: Acute renal failure type: unspecified Qualified Code(s): N17.9 - Acute kidney failure, unspecified Category: Medical Code(s): N17.9 - Acute kidney failure, unspecified (4) Delirium Current visit: Yes Status: Acute Category: Medical Code(s): R41.0 - Disorientation, unspecified (5) Hyperlipidemia Current visit: Yes Status: Chronic Category: Medical Code(s): E78.5 - Hyperlipidemia, unspecified (6) Hypertension Current visit: No Status: Chronic Qualifiers: Hypertension type: unspecified Qualified Code(s): I10 - Essential (primary ) hypertension Category: Medical Code(s): I10 - Essential (primary) hypertension (7) Musculoskeletal back pain Current visit: No Status: Acute Category: Medical Code(s): M54.9 - Dorsalgia, unspecified (8) Diarrhea Current visit: Yes Status: Acute Category: Medical Code(s): R19.7 - Diarrhea, unspecified The patient's infection will respond to the chosen ABx?: Yes Is the patient receiving the right drug, dose, and route?: Yes Could a more targeted ABx be ordered?: No
--- NOTE | 2017-11-08 05:25 | Progress Note ---
Internal Medicine - PN: Subj *Date: 11/08/17 *Time: 06:05 Interval history: Patient with no new complaints today, feeling a little better each day. Exam Vital signs and Labs for Last 24 Hours: Temp Pulse Resp BP Pulse Ox 97.8 F 78 20 113/65 93 L 11/07/17 23:55 11/07/17 23:55 11/07/17 23:55 11/07/17 23:55 11/08/17 03:45 Vital Signs Temp Pulse Pulse Resp BP BP Pulse Ox 11/08/17 03:45 93 L 11/07/17 23:55 97.8 F 78 20 113/65 92 L 11/07/17 21:08 87 11/07/17 20:55 95 11/07/17 20:00 97.6 F 80 21 108/58 95 11/07/17 15:29 98.2 F 75 22 95/53 95 11/07/17 11:21 98.3 F 70 20 97/47 95 11/07/17 09:11 72 11/07/17 09:00 93 L 11/07/17 07:52 98.0 F 72 18 94/53 93 L 11/07/17 05:33 67 89 L Intake and Output 11/07/17 11/08/17 11/08/17 19:59 03:59 11:59 Intake Total 450 / 450 Balance 450 / 450 Intake: Intake, Total IV Amount 450 / 450 Azithromycin 500 mg In 0.9 % 250 / 250 Sodium Chloride 250 ml @ 250 mls/hr IV Q24H [facility] Rx#:[id number] Ceftriaxone Sodium 1 gm In 0.9 100 / 100 % Sodium Chloride 50 ml @ 100 mls/hr IV Q24H [facility] Rx#:[id number] Clindamycin Phosphate 600 mg In 100 / 100 0.9 % Sodium Chloride 100 ml @ 104 mls/hr IV Q8H [facility] Rx#: [id number] I & O for Last 24 hours: Intake & Output 11/05/17 11/06/17 11/07/17 11/08/17 11:59 11:59 11:59 11:59 Intake Total 2749 / 2749 840 / 840 4300 / 4300 450 / 450 Output Total 150 / 150 1000 / 1000 Balance 2749 / 2749 690 / 690 3300 / 3300 450 / 450 - Constitutional no acute distress - *Routine HEENT Exam ENT: Present: mucous membranes moist - *Routine Respiratory Exam Present: wheezes (few, some coarse breath sounds), crackles (few) - *Routine Cardiovascular Exam Present: RRR - *Routine Extremities Exam Absent: cyanosis, clubbing, edema Assessment and Plan (1) CAP (community acquired pneumonia) Current visit: Yes Status: Acute Qualifiers: Laterality: right Lung location: lower lobe of lung Qualified Code(s): J18.1 - Lobar pneumonia, unspecified organism Category: Medical Code(s): J18.9 - Pneumonia, unspecified organism (2) Urinary tract infection Problem details: D/T Staph Haemolyticus Current visit: No Status: Acute Qualifiers: Urinary tract infection type: site unspecified Hematuria presence: without hematuria Qualified Code(s): N39.0 - Urinary tract infection, site not specified Category: Medical Code(s): N39.0 - Urinary tract infection, site not specified (3) Acute renal failure Current visit: Yes Status: Acute Qualifiers: Acute renal failure type: unspecified Qualified Code(s): N17.9 - Acute kidney failure, unspecified Category: Medical Code(s): N17.9 - Acute kidney failure, unspecified (4) Delirium Current visit: Yes Status: Acute Category: Medical Code(s): R41.0 - Disorientation, unspecified (5) Hyperlipidemia Current visit: Yes Status: Chronic Category: Medical Code(s): E78.5 - Hyperlipidemia, unspecified (6) Hypertension Current visit: No Status: Chronic Qualifiers: Hypertension type: unspecified Qualified Code(s): I10 - Essential (primary ) hypertension Category: Medical Code(s): I10 - Essential (primary) hypertension (7) Musculoskeletal back pain Current visit: No Status: Acute Category: Medical Code(s): M54.9 - Dorsalgia, unspecified (8) Diarrhea Current visit: Yes Status: Resolved Category: Medical Code(s): R19.7 - Diarrhea, unspecified - Assessment and plan all Dx Assessment and Plan for all problems:: Patient is improving, will attempt to wean O2 today, possible discharge home tomorrow.
[2017-11-09 07:06] LABS: Basophils % 0.1 % (0.1-2.0); Eosinophils % 0.1 % (0.1-12.0); Hemoglobin 12.3 g/dL (14.1-18.0); Lymphocytes # 0.9 K/mm3 (0.7-4.5); Lymphocytes % 6.6 K/mm3 (10-50); Mean Corpuscular HGB Conc 30.7 g/dL (31.8-35.4); Mean Corpuscular Hemoglobin 28.2 pg (27.0-31.2); Mean Corpuscular Volume 91.7 fl (80-94); Mean Platelet Volume 8.8 fl (7.4-10.4); Monocytes # 0.7 K/mm3 (0.1-1.0); Neutrophils # 12.4 K/mm3 (1.8-7.8); Neutrophils % 88.2 % (37.0-80.0); Platelet Count 430 K/mm3 (142-424); Red Blood Count 4.36 M/mm3 (4.60-6.20); Red Cell Distribution Width 15.5 % (11.5-17.5)
[2017-11-09 07:09] LABS: Anion Gap 15.3 mEq/L (5-15); Potassium 4.3 mmoL/L (3.5-5.1)
[2017-11-09 07:53] LABS: Lymphocytes % 3 % (10-50); Monocytes % 2 % (2-9); Neutrophils % 95 % (42-76); Total Cells Counted 100
[2017-11-09 07:54] LABS: RBC Morphology Normal
[2017-11-09 07:58] VITALS: BP 119/66
--- NOTE | 2017-11-09 08:36 | Progress Note ---
Addendum entered and electronically signed by Madelaine Horton APRN 11/09/17 08: 36: Original Note: <Madelaine Horton - Last Filed: 11/09/17 08:33> Internal Medicine - PN: Subj *Date: 11/09/17 *Time: 08:33 Interval history: Patient states he feels fine and wants to go home. He denies shortness of breath and chest pain. He did sleep some. He is eating without difficulty. He is ambulated in the room. He continues to have a nonproductive cough. He has been off his oxygen throughout the night without problems. Exam Vital signs and Labs for Last 24 Hours: Temp Pulse Resp BP Pulse Ox 98.2 F 74 20 119/66 95 11/09/17 07:58 11/09/17 07:58 11/09/17 07:58 11/09/17 07:58 11/09/17 07:58 Laboratory Results - last 24 hr 11/09/17 06:46: WBC 14.0 H, RBC 4.36 L, Hgb 12.3 L, Hct 40.0 L, MCV 91.7, MCH 28.2, MCHC 30.7 L, RDW 15.5, Plt Count 430 H D, MPV 8.8, Neut % (Auto) 88.2 H, Lymph % (Auto) 6.6 L, [place] % (Auto) 5.0, Eos % (Auto) 0.1, Baso % (Auto) 0.1, Neut # (Auto) 12.4 H, Lymph # (Auto) 0.9, [place] # (Auto) 0.7, Eos # (Auto) 0.0, Baso # (Auto) 0.0, Total Counted 100, Neutrophils % (Manual) 95 H, Lymphocytes % (Manual) 3 L, Monocytes % (Manual) 2, Platelet Estimate Slight increase, RBC Morphology Normal 11/09/17 06:46: Sodium 142, Potassium 4.3, Chloride 107, Carbon Dioxide 24, Anion Gap 15.3 H, BUN 26 H, Creatinine 1.43 H, Estimated Creat Clear 85, Estimated GFR 53 L, Est GFR ( Amer) 65, Glucose 146 H I & O for Last 24 hours: Intake & Output 11/06/17 11/07/17 11/08/17 11/09/17 11:59 11:59 11:59 11:59 Intake Total 840 / 840 4300 / 4300 1320 / 1320 934 / 934 Output Total 150 / 150 1000 / 1000 250 / 250 Balance 690 / 690 3300 / 3300 1070 / 1070 934 / 934 Microbiology Reports for the Last 24 Hours: Microbiology 11/03/17 16:30 Blood Blood Culture - Final NO GROWTH AFTER 5 DAYS 11/03/17 16:30 Blood Blood Culture - Final NO GROWTH AFTER 5 DAYS - Constitutional no acute distress (Sitting on bedside after eating breakfast. Appears comfortable and is breathing easily) - *Routine Respiratory Exam Comments: Bilateral wheezing and some crackles. - *Routine Cardiovascular Exam Present: RRR - *Routine Abdominal Exam Present: soft, normoactive bowel sounds. Absent: tenderness - *Routine Extremities Exam Present: edema (Trace) - *Routine Neurological Exam Present: alert, oriented X3 Assessment and Plan (1) CAP (community acquired pneumonia) Status: Acute Qualifiers: Laterality: right Lung location: lower lobe of lung Qualified Code(s): J18.1 - Lobar pneumonia, unspecified organism Category: Medical Code(s): J18.9 - Pneumonia, unspecified organism (2) Urinary tract infection Problem details: D/T Staph Haemolyticus Status: Acute Qualifiers: Urinary tract infection type: site unspecified Hematuria presence: without hematuria Qualified Code(s): N39.0 - Urinary tract infection, site not specified Category: Medical Code(s): N39.0 - Urinary tract infection, site not specified (3) Acute renal failure Status: Acute Qualifiers: Acute renal failure type: unspecified Qualified Code(s): N17.9 - Acute kidney failure, unspecified Category: Medical Code(s): N17.9 - Acute kidney failure, unspecified (4) Delirium Status: Acute Category: Medical Code(s): R41.0 - Disorientation, unspecified (5) Hyperlipidemia Status: Chronic Category: Medical Code(s): E78.5 - Hyperlipidemia, unspecified (6) Hypertension Status: Chronic Qualifiers: Hypertension type: unspecified Qualified Code(s): I10 - Essential (primary ) hypertension Category: Medical Code(s): I10 - Essential (primary) hypertension (7) Musculoskeletal back pain Status: Acute Category: Medical Code(s): M54.9 - Dorsalgia, unspecified (8) Diarrhea Status: Resolved Category: Medical Code(s): R19.7 - Diarrhea, unspecified <NiloCurtis - Last Filed: 11/09/17 18:51> Internal Medicine - PN: Subj *Date: 11/09/17 *Time: 18:50 Exam Vital signs and Labs for Last 24 Hours: Temp Pulse Resp BP Pulse Ox 98.2 F 70 20 119/66 95 11/09/17 07:58 11/09/17 09:48 11/09/17 07:58 11/09/17 07:58 11/09/17 07:58 Laboratory Results - last 24 hr 11/09/17 06:46: WBC 14.0 H, RBC 4.36 L, Hgb 12.3 L, Hct 40.0 L, MCV 91.7, MCH 28.2, MCHC 30.7 L, RDW 15.5, Plt Count 430 H D, MPV 8.8, Neut % (Auto) 88.2 H, Lymph % (Auto) 6.6 L, [place] % (Auto) 5.0, Eos % (Auto) 0.1, Baso % (Auto) 0.1, Neut # (Auto) 12.4 H, Lymph # (Auto) 0.9, [place] # (Auto) 0.7, Eos # (Auto) 0.0, Baso # (Auto) 0.0, Total Counted 100, Neutrophils % (Manual) 95 H, Lymphocytes % (Manual) 3 L, Monocytes % (Manual) 2, Platelet Estimate Slight increase, RBC Morphology Normal 11/09/17 06:46: Sodium 142, Potassium 4.3, Chloride 107, Carbon Dioxide 24, Anion Gap 15.3 H, BUN 26 H, Creatinine 1.43 H, Estimated Creat Clear 85, Estimated GFR 53 L, Est GFR ( Amer) 65, Glucose 146 H I & O for Last 24 hours: Intake & Output 11/07/17 11/08/17 11/09/17 11/10/17 11:59 11:59 11:59 11:59 Intake Total 4300 / 4300 1320 / 1320 934 / 934 Output Total 1000 / 1000 250 / 250 Balance 3300 / 3300 1070 / 1070 934 / 934 Microbiology Reports for the Last 24 Hours: Microbiology 11/03/17 16:30 Blood Blood Culture - Final NO GROWTH AFTER 5 DAYS 11/03/17 16:30 Blood Blood Culture - Final NO GROWTH AFTER 5 DAYS Assessment and Plan (1) CAP (community acquired pneumonia) Status: Acute Qualifiers: Laterality: right Lung location: lower lobe of lung Qualified Code(s): J18.1 - Lobar pneumonia, unspecified organism Category: Medical Code(s): J18.9 - Pneumonia, unspecified organism (2) Urinary tract infection Problem details: D/T Staph Haemolyticus Status: Acute Qualifiers: Urinary tract infection type: site unspecified Hematuria presence: without hematuria Qualified Code(s): N39.0 - Urinary tract infection, site not specified Category: Medical Code(s): N39.0 - Urinary tract infection, site not specified (3) Acute renal failure Status: Acute Qualifiers: Acute renal failure type: unspecified Qualified Code(s): N17.9 - Acute kidney failure, unspecified Category: Medical Code(s): N17.9 - Acute kidney failure, unspecified (4) Delirium Status: Acute Category: Medical Code(s): R41.0 - Disorientation, unspecified (5) Hyperlipidemia Status: Chronic Category: Medical Code(s): E78.5 - Hyperlipidemia, unspecified (6) Hypertension Status: Chronic Qualifiers: Hypertension type: unspecified Qualified Code(s): I10 - Essential (primary ) hypertension Category: Medical Code(s): I10 - Essential (primary) hypertension (7) Musculoskeletal back pain Status: Acute Category: Medical Code(s): M54.9 - Dorsalgia, unspecified (8) Diarrhea Status: Resolved Category: Medical Code(s): R19.7 - Diarrhea, unspecified - Assessment and plan all Dx Assessment and Plan for all problems:: He has weaned to room air and denies SOA. 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 WBC elevated, ? steroids. He is eager to go home and looks good today. Will discharge home on continued antibiotics and tapering steroids with early f/u in [address] Lam
--- NOTE | 2017-11-09 09:37 | Progress Note ---
Internal Medicine - PN: Subj *Date: 11/09/17 *Time: 09:36 Exam Vital signs and Labs for Last 24 Hours: Temp Pulse Resp BP Pulse Ox 98.2 F 74 20 119/66 95 11/09/17 07:58 11/09/17 07:58 11/09/17 07:58 11/09/17 07:58 11/09/17 07:58 Laboratory Results - last 24 hr 11/09/17 06:46: WBC 14.0 H, RBC 4.36 L, Hgb 12.3 L, Hct 40.0 L, MCV 91.7, MCH 28.2, MCHC 30.7 L, RDW 15.5, Plt Count 430 H D, MPV 8.8, Neut % (Auto) 88.2 H, Lymph % (Auto) 6.6 L, [place] % (Auto) 5.0, Eos % (Auto) 0.1, Baso % (Auto) 0.1, Neut # (Auto) 12.4 H, Lymph # (Auto) 0.9, [place] # (Auto) 0.7, Eos # (Auto) 0.0, Baso # (Auto) 0.0, Total Counted 100, Neutrophils % (Manual) 95 H, Lymphocytes % (Manual) 3 L, Monocytes % (Manual) 2, Platelet Estimate Slight increase, RBC Morphology Normal 11/09/17 06:46: Sodium 142, Potassium 4.3, Chloride 107, Carbon Dioxide 24, Anion Gap 15.3 H, BUN 26 H, Creatinine 1.43 H, Estimated Creat Clear 85, Estimated GFR 53 L, Est GFR ( Amer) 65, Glucose 146 H I & O for Last 24 hours: Intake & Output 11/06/17 11/07/17 11/08/17 11/09/17 23:59 23:59 23:59 23:59 Intake Total 2730 / 2730 2380 / 2380 1670 / 1670 134 / 134 Output Total 500 / 500 500 / 500 250 / 250 Balance 2230 / 2230 1880 / 1880 1420 / 1420 134 / 134 Microbiology Reports for the Last 24 Hours: Microbiology 11/03/17 16:30 Blood Blood Culture - Final NO GROWTH AFTER 5 DAYS 11/03/17 16:30 Blood Blood Culture - Final NO GROWTH AFTER 5 DAYS Assessment and Plan (1) CAP (community acquired pneumonia) Current visit: Yes Status: Acute Qualifiers: Laterality: right Lung location: lower lobe of lung Qualified Code(s): J18.1 - Lobar pneumonia, unspecified organism Category: Medical Code(s): J18.9 - Pneumonia, unspecified organism (2) Urinary tract infection Problem details: D/T Staph Haemolyticus Current visit: No Status: Acute Qualifiers: Urinary tract infection type: site unspecified Hematuria presence: without hematuria Qualified Code(s): N39.0 - Urinary tract infection, site not specified Category: Medical Code(s): N39.0 - Urinary tract infection, site not specified (3) Acute renal failure Current visit: Yes Status: Acute Qualifiers: Acute renal failure type: unspecified Qualified Code(s): N17.9 - Acute kidney failure, unspecified Category: Medical Code(s): N17.9 - Acute kidney failure, unspecified (4) Delirium Current visit: Yes Status: Acute Category: Medical Code(s): R41.0 - Disorientation, unspecified (5) Hyperlipidemia Current visit: Yes Status: Chronic Category: Medical Code(s): E78.5 - Hyperlipidemia, unspecified (6) Hypertension Current visit: No Status: Chronic Qualifiers: Hypertension type: unspecified Qualified Code(s): I10 - Essential (primary ) hypertension Category: Medical Code(s): I10 - Essential (primary) hypertension (7) Musculoskeletal back pain Current visit: No Status: Acute Category: Medical Code(s): M54.9 - Dorsalgia, unspecified (8) Diarrhea Current visit: Yes Status: Resolved Category: Medical Code(s): R19.7 - Diarrhea, unspecified The patient's infection will respond to the chosen ABx?: Yes Is the patient receiving the right drug, dose, and route?: Yes Could a more targeted ABx be ordered?: No (HOME ON CLINDAMYCIN AND CEFUROXIME)
--- NOTE | 2017-11-09 21:47 | Discharge Summary ---
General - General Admission date:: 11/03/17 Discharge date: 11/09/17 HPI HPI: Mr. Salguero is a 47-year-old male patient of Dr. Jay. He states last Wednesday he began having body aches and a fever. He presented to the emergency room on Wednesday and was tested for flu and strep. These were both negative but he was found to have a UTI and renal failure. Some of his medications were adjusted and he was started on antibiotics for a UTI. 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 The patient states he developed a cough and became short of breath. He continued to have suprapubic pain and was having diarrhea. He was aching and therefore presented to the emergency room. He was found to have a pneumonia as well as a UTI. He was admitted for further evaluation and treatment. Of note, he does work in a [employer]. Hospital Course Hospital Course: The patient's head CT showed nothing acute. His CXR showed a RLL pneumonia. He was started on abx, oxygen, and duonebs. A diarrhea panel was ordered and was negative. Sputum and blood cx's were normal. His urine cx was positive for staph hemolyticus. Clindamycin was added. The patient began improving on triple antibiotic therapy. The patient was weaned off of his oxygen and began eating and getting up and walking in the room. He was stable to be discharged home on abx and a tapering dose of steroids. Objective Vital signs: Temp Pulse Resp BP Pulse Ox 98.2 F 70 20 119/66 95 11/09/17 07:58 11/09/17 09:48 11/09/17 07:58 11/09/17 07:58 11/09/17 07:58 Narrative: - Constitutional Comments: Does not appear to feel well, coughing - *Routine HEENT Exam Head: Present: normocephalic, atraumatic Eye: Present: EOMI, PERRL ENT: Present: mucous membranes moist - *Routine Neck Exam Present: supple, full ROM - *Routine Respiratory Exam Present: wheezes (bilaterally) - *Routine Cardiovascular Exam Present: RRR - *Routine Abdominal Exam Present: soft, normoactive bowel sounds, tenderness (suprapubic) - *Routine Extremities Exam Absent: edema - *Routine Skin Exam Present: intact - *Routine Neurological Exam Present: alert, oriented X3 Results Labs on day of discharge: Labs from last 24 hours 11/09/17 11/09/17 06:46 06:46 WBC 14.0 H RBC 4.36 L Hgb 12.3 L Hct 40.0 L MCV 91.7 MCH 28.2 MCHC 30.7 L RDW 15.5 Plt Count 430 H D MPV 8.8 Neut % (Auto) 88.2 H Lymph % (Auto) 6.6 L [place] % (Auto) 5.0 Eos % (Auto) 0.1 Baso % (Auto) 0.1 Neut # (Auto) 12.4 H Lymph # (Auto) 0.9 [place] # (Auto) 0.7 Eos # (Auto) 0.0 Baso # (Auto) 0.0 Total Counted 100 Neutrophils % (Manual) 95 H Lymphocytes % (Manual) 3 L Monocytes % (Manual) 2 Platelet Estimate Slight increase RBC Morphology Normal Sodium 142 Potassium 4.3 Chloride 107 Carbon Dioxide 24 Anion Gap 15.3 H BUN 26 H Creatinine 1.43 H Estimated Creat Clear 85 Estimated GFR 53 L Est GFR ( Amer) 65 Glucose 146 H DS: Diagnosis - Discharge Diagnosis (1) CAP (community acquired pneumonia) Status: Acute (2) Urinary tract infection Status: Acute Problem details: D/T Staph Haemolyticus (3) Acute renal failure Status: Acute (4) Delirium Status: Acute (5) Hyperlipidemia Status: Chronic (6) Hypertension Status: Chronic (7) Musculoskeletal back pain Status: Acute (8) Diarrhea Status: Resolved Discharge Plan - Patient Discharge Instructions ACTIVITY: Continue current activity DIET: continue same diet Patient Instructions: Pneumonia-Adult, Kidney Failure, High Triglycerides, Diarrhea, Delirium, DI for Pneumonia -- Adult - Follow up Plan Follow up with: Rohan Lam MD [Staff Physician] - 2 days Disposition: Home, Self-Half-Way Medications: Home Medications Medication Instructions Recorded Confirmed Type Amlodipine Besylate [Amlodipine 10 mg PO DAILY 10/19/17 11/03/17 History 10mg Tab] Aspirin 81 mg PO DAILY 10/19/17 11/03/17 History Atorvastatin Calcium [Atorvastatin 80 mg PO DAILY 10/19/17 11/03/17 History 80mg Tab] Carvedilol [Coreg 25mg Tablet] 25 mg PO BID 10/19/17 11/03/17 History Isosorbide Mononitrate [Isosorbide 30 mg PO DAILY 10/19/17 11/04/17 History Mononitrate ER] Prescriptions/Medication Reconciliation: New Clindamycin HCl [Clindamycin 300mg Cap] 300 mg PO TID #21 cap predniSONE [Prednisone 20mg Tab] 20 mg PO DIRECTED #18 tab cefUROXime axetil [Cefuroxime 500mg Tab] 500 mg PO BID #14 tab Continue Carvedilol [Coreg 25mg Tablet] 25 mg PO BID Isosorbide Mononitrate [Isosorbide Mononitrate ER] 30 mg PO DAILY Amlodipine Besylate [Amlodipine 10mg Tab] 10 mg PO DAILY Atorvastatin Calcium [Atorvastatin 80mg Tab] 80 mg PO DAILY Aspirin 81 mg PO DAILY Discontinued Nitrofurantoin Macrocrystal [Macrodantin 100mg capsule] 100 mg PO BID
== END 2017-11-09 10:06 | disposition home or self-care (01) ==
LOC: ER 15:49 → 2ND 15:49 → OBSVTOIN 19:03 → 2ND 19:04
PROVIDERS: ADMIT Family Medicine; ATTEND Family Medicine

== ENCOUNTER → 2019-05-17 15:09 | Outpatient (CLI) | payer OTHER, SELFPAY ==
[2019-05-17 16:45] LABS: Anion Gap 15.6 mEq/L (5-15); Blood Urea Nitrogen 18 mg/dL (7-18); Calcium 9.2 mg/dL (8.5-10.1); Carbon Dioxide 28 mmol/L (21.0-32.0); Chloride 100 mmol/L (98-107); Creatinine,Serum 1.47 mg/dL (0.70-1.30); Estimated Glomerular Filt Rate 52 ml/min (>60); GFR (African American) 62 ML/MIN (>60); Glucose 90 mg/dL (74-106); Prostate Specific Ag Screen 2.2 ng/mL (0.0-4.0); Sodium 139 mmol/L (136-145)
[2019-05-17 16:50] LABS: Potassium 4.6 mmoL/L (3.5-5.1)
== END ==
PROVIDERS: Visit Provider Urology
DX: N17.9 Acute kidney failure, unspecified (principal); N20.0 Calculus of kidney; N26.1 Atrophy of kidney (terminal); N40.1 Benign prostatic hyperplasia with lower urinary tract symptoms; R39.198 Other difficulties with micturition; Z12.5 Encounter for screening for malignant neoplasm of prostate
CPT/HCPCS: 36415; 80048; G0103

== ENCOUNTER → 2019-05-30 12:49 | Outpatient (CLI) | payer OTHER, SELFPAY ==
--- NOTE | 2019-05-30 12:56 | NM_ITS ---
PROCEDURE: NM RENAL FLOW W PHARM INT CLINICAL INDICATION: RENAL INSUFFICIENCY, LT RENAL ATROPHY COMPARISON: CT ABDOMEN PELVIS WO CON from 05/08/2019 TECHNIQUE: Dose: 9.94 mCi technetium Mag 3 40 mg Lasix IV FINDINGS: Blood flow images show increased blood flow to the right kidney compared to the left kidney.. Differential uptake of the kidneys is 8 percent to the left kidney and 92 percent to the right kidney with the time of 1/2 max of 18 minutes to the left kidney and 9.6 minutes to the right kidney. Following Lasix administration, there was some leveling off excretion to the right kidney with no significant change in the left kidney. This would not indicate underlying obstruction. IMPRESSION: Decreased blood flow and differential uptake to the left kidney compared to the right with 92 uptake to the right kidney in 8 percent uptake to the left kidney. Renal artery stenosis with chronic right renal insufficiency is considered. Consider renal Doppler for further evaluation. No evidence of UPJ stenosis Dictated by: Jean Carlos David MD 06/01/2019 08:07 Electronically signed by Jean Carlos David MD in [place] 06/01/2019 08:07
--- NOTE | 2019-05-30 13:40 | HMH.ITSHM ---
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 []PREDNISONE LEVOFLOXACIN CEFUROXIME CARVEDILOL ZOFRAN ISOSRBIDE ATORVASTATIN ASA AMLODIPINE
== END ==
PROVIDERS: PCP Family Medicine; Visit Provider Urology
DX: N18.9 Chronic kidney disease, unspecified (principal); N26.1 Atrophy of kidney (terminal)
CPT/HCPCS: 78708; A9562

== ENCOUNTER → 2019-06-05 07:39 | Outpatient (CLI) | payer OTHER, SELFPAY ==
--- NOTE | 2019-06-05 07:49 | CA_ITS ---
APPROVED REPORT Extrusion Utility Worker: Johanna Carlos RVT Study Quality: Good Indications: HTN, Lt kidney atrophy, Abn NM renal flow study, Renal insuff.,Hx kidney stones Risk Factors Hypertension Hyperlipidemia Smoking Renal Artery Doppler Origin (R) 189.7/ cm/sec Proximal (R) 225.6/ cm/sec Mid (R) 193.5/ cm/sec Distal (R) 205.5/ cm/sec Renal Aorta Ratio (R) 2.38 Segmental A. (R) 74.1/28.9 cm/sec RI: 0.60 Segmental A. Sup (R) 34.3/18.2 cm/sec Segmental A. Mid (R) 50.4/11.8 cm/sec Segmental A. Inf (R) 74.1/28.9 cm/sec Proximal (L) 74.5/ cm/sec Mid (L) 95.9/ cm/sec Distal (L) 71.1/ cm/sec Renal Aorta Ratio (L) 0.00 Segmental A. (L) 64.8/29.9 cm/sec RI: 0.53 Segmental A. Sup (L) 46.1/23.7 cm/sec Segmental A. Mid (L) 64.8/29.9 cm/sec Segmental A. Inf (L) 41.1/18.7 cm/sec Renal Measurements Kidney Size (R) 11.7x7.7 cm Cortical Thickness (R) 0.9 cm Kidney Size (L) 10.7x5.4 cm Cortical Thickness (L) 0.7 cm Findings Study suggests less than 60% stenosis of the right renal artery, Study suggests normal left renal artery, decreased bloodflow is seen on the left. 1.7 cm cyst mid pole of the right kidney. 1.3 cm cyst mid pole of the left kidney. Bilateral cortical thinning and atrophy of the left kidney seen. Conclusion Study suggests less than 60% stenosis of the right renal artery, Study suggests normal left renal artery, decreased bloodflow is seen on the left. 1.7 cm cyst mid pole of the right kidney. 1.3 cm cyst mid pole of the left kidney. Bilateral cortical thinning and atrophy of the left kidney seen. Electronically signed by : Luis E Kelsey, 06/06/2019 10:19:46
== END ==
PROVIDERS: PCP Family Medicine; Visit Provider Urology
DX: N26.1 Atrophy of kidney (terminal) (principal)
CPT/HCPCS: 93976

== ENCOUNTER → 2019-06-16 14:01 | Outpatient (CLI) | payer OTHER, SELFPAY ==
--- NOTE | 2019-06-16 14:10 | MR_ITS ---
PROCEDURE: MR ANGIO ABDOMEN WO/W CON CLINICAL INDICATION: LEFT KIDNEY ATROPHY Evaluate for left artery stenosis COMPARISON: CA RENAL ARTERY DUPLEX from 06/05/2019 TECHNIQUE: Pre and post enhanced multiplanar multi echo sequences performed with 3D post enhanced MRA. FINDINGS: The left kidney is atrophic. Scarring is noted involving the left kidney. The right renal artery has an unremarkable appearance. The left renal artery is smaller than the right renal artery however, there is also a smooth area of high-grade stenosis involving the proximal to mid aspect of the left renal artery. This the stenosis is estimated to be approximately 60 percent measuring approximately 7 mm in length with poststenotic dilatation. There are small bilateral renal cyst and a small cyst in the right lobe of the liver. No renal mass. No adrenal mass. IMPRESSION: At least 60 percent smooth segment stenosis involving the proximal to mid aspect of the left renal artery measuring approximately 7 mm in length with poststenotic dilatation with atrophic changes of the left kidney. Dictated by: Jean Carlos David MD 06/19/2019 11:19 Electronically signed by Jean Carlos David MD in [place] 06/19/2019 11:19
[2019-06-16 15:04] LABS: Blood Urea Nitrogen 16 mg/dL (7-18); Creatinine,Serum 1.51 mg/dL (0.70-1.30); Estimated Glomerular Filt Rate 50 ml/min (>60); GFR (African American) 60 ML/MIN (>60)
--- NOTE | 2019-06-16 15:49 | HMH.ITSHM ---
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 []AMLODIPINE CARVEDILOL OMEPRAZOLE ATORVASTATIN ISOSORBIDE ASPIRIN
== END ==
PROVIDERS: PCP Family Medicine; Visit Provider Urology
DX: N26.1 Atrophy of kidney (terminal) (principal)
CPT/HCPCS: 36415; 74182; 82565; 84520; A9576

== ENCOUNTER → 2019-07-11 09:58 | Outpatient (CLI) | payer OTHER, SELFPAY ==
[2019-07-11 10:08] LABS: Microscopic, Urine URINE MICROSCOPIC (MICROSCOPIC)
[2019-07-11 11:11] LABS: Basophils # 0.1 K/mm3 (0-0.2); Basophils % 1.4 % (0.1-2.0); Eosinophils # 0.4 K/mm3 (0.0-0.4); Eosinophils % 4.6 % (0.1-12.0); Hematocrit 51.5 % (42.0-52.0); Hemoglobin 16.7 g/dL (14.1-18.0); Lymphocytes # 1.2 K/mm3 (0.7-4.5); Lymphocytes % 12.8 % (10-50); Mean Corpuscular HGB Conc 32.5 g/dL (31.8-35.4); Mean Corpuscular Hemoglobin 29.9 pg (27.0-31.2); Mean Corpuscular Volume 91.9 fl (80-94); Mean Platelet Volume 7.9 fl (7.4-10.4); Monocytes # 0.8 K/mm3 (0.1-1.0); Monocytes % 8.3 % (1.7-9.3); Neutrophils # 6.8 K/mm3 (1.8-7.8); Neutrophils % 72.9 % (37.0-80.0); Platelet Count 365 K/mm3 (142-424); Red Cell Distribution Width 13.8 % (11.5-17.5); White Blood Count 9.3 K/mm3 (4.8-10.8)
[2019-07-11 11:29] LABS: Appearance,Urine CLEAR (Clear); Bilirubin,Urine Negative (Negative); Blood, Urine 2+ (Negative); Color,Urine YELLOW (Yellow); Glucose,Urine (UA) Negative (Negative); Ketones,Urine Negative (Negative); Leukocyte Esterase,Urine Negative (Negative); Nitrate,Urine Negative (Negative); Protein,Urine Negative (Negative); Specific Gravity, Urine 1.025 (1.005-1.030); Urobilinogen,Urine 0.2 EU/dl (0.2)
[2019-07-11 11:34] LABS: Creatinine,Urine Random 192 mg/dL (20-320); Total Protein,Urine Random 44.9 mg/dL (0.0-11.9)
--- NOTE | 2019-07-11 11:58 | CA_ITS ---
APPROVED REPORT Welding Foreman: Lauren Oakes [facility] Indications Leg Pain pain and bruisng of right groin,post cath Conclusion No evidence of pseudoaneurysm, hematoma, or AV fistula of the right groin. Electronically signed by : Jean Carlos David MD 07/11/2019 18:08:28
[2019-07-11 13:04] LABS: Albumin Level 3.2 gm/dL (3.4-5.0); Anion Gap 16.1 mEq/L (5-15); Blood Urea Nitrogen 11 mg/dL (7-18); Calcium 9.3 mg/dL (8.5-10.1); Carbon Dioxide 26 mmol/L (21.0-32.0); Chloride 103 mmol/L (98-107); Creatinine,Serum 1.57 mg/dL (0.70-1.30); Estimated Glomerular Filt Rate 48 ml/min (>60); GFR (African American) 58 ML/MIN (>60); Glucose 99 mg/dL (74-106); Phosphorous 3.4 mg/dL (2.4-4.9); Potassium 4.1 mmoL/L (3.5-5.1); Sodium 141 mmol/L (136-145)
[2019-07-11 13:07] LABS: Anion Gap 15.2 mEq/L (5-15); Blood Urea Nitrogen 11 mg/dL (7-18); Calcium 9.2 mg/dL (8.5-10.1); Carbon Dioxide 27 mmol/L (21.0-32.0); Chloride 103 mmol/L (98-107); Creatinine,Serum 1.63 mg/dL (0.70-1.30); Estimated Glomerular Filt Rate 46 ml/min (>60); GFR (African American) 55 ML/MIN (>60); Glucose 101 mg/dL (74-106); Potassium 4.2 mmoL/L (3.5-5.1); Sodium 141 mmol/L (136-145)
[2019-07-11 13:07] LABS: Bacteria,Urine Trace /lpf
[2019-07-13 16:58] LABS: Parathyroid Hormone Intact 16 pg/mL (15-65)
[2019-07-13 17:02] LABS: Vitamin D 25 Hydroxy 18.9 ng/mL (30.0-100.0)
== END ==
PROVIDERS: Internal Medicine Nephrology; PCP Family Medicine; Visit Provider Internal Medicine
DX: G89.18 Other acute postprocedural pain (principal); N18.3 Chronic kidney disease, stage 3 (moderate); E55.9 Vitamin D deficiency, unspecified; M79.604 Pain in right leg
CPT/HCPCS: 36415; 80048; 80069; 81001; 82570; 82652; 83970; 84155; 85025; 93926

== ENCOUNTER → 2019-07-20 16:49 | Outpatient (POV) | payer OTHER, SELFPAY | PROVIDERS: Visit Provider Internal Medicine Nephrology | DX: Z00.00 Encounter for general adult medical examination without abnormal findings (principal) ==

== ENCOUNTER → 2019-11-10 15:35 | Outpatient (CLI) | payer OTHER, SELFPAY ==
[2019-11-10 15:40] LABS: Microscopic, Urine URINE MICROSCOPIC (MICROSCOPIC)
[2019-11-10 16:41] LABS: Basophils # 0.2 K/mm3 (0-0.2); Basophils % 2.1 % (0.1-2.0); Eosinophils # 0.6 K/mm3 (0.0-0.4); Eosinophils % 6.8 % (0.1-12.0); Hematocrit 53.5 % (42.0-52.0); Hemoglobin 17.1 g/dL (14.1-18.0); Lymphocytes # 1.6 K/mm3 (0.7-4.5); Mean Corpuscular Volume 90.7 fl (80-94); Mean Platelet Volume 7.3 fl (7.4-10.4); Monocytes # 0.7 K/mm3 (0.1-1.0); Monocytes % 7.2 % (1.7-9.3); Neutrophils # 6.3 K/mm3 (1.8-7.8); Neutrophils % 66.9 % (37.0-80.0); Platelet Count 339 K/mm3 (142-424); Red Cell Distribution Width 15.2 % (11.5-17.5); White Blood Count 9.4 K/mm3 (4.8-10.8)
[2019-11-10 16:55] LABS: Chloride 102 mmol/L (98-107); Potassium 4.1 mmoL/L (3.5-5.1); Sodium 139 mmol/L (136-145)
[2019-11-10 16:58] LABS: Anion Gap 10.1 mEq/L (5-15); Blood Urea Nitrogen 12 mg/dl (9-20); Calcium 9.5 mg/dl (8.4-10.2); Carbon Dioxide 31 mmol/L (22.0-30.0); Estimated Glomerular Filt Rate 50 ml/min (>60); GFR (African American) 61 ML/MIN (>60); Glucose 128 mg/dl (74-100); Phosphorous 3.2 mg/dl (2.5-4.5)
[2019-11-10 17:42] LABS: Creatinine,Urine Random 191 mg/dL (Not Estab.)
[2019-11-10 18:18] LABS: Appearance,Urine CLEAR (Clear); Bilirubin,Urine Negative (Negative); Blood, Urine 2+ (Negative); Color,Urine YELLOW (Yellow); Glucose,Urine (UA) Negative (Negative); Ketones,Urine Negative (Negative); Leukocyte Esterase,Urine Negative (Negative); Nitrate,Urine Negative (Negative); Protein,Urine Negative (Negative); Urobilinogen,Urine 0.2 EU/dl (0.2)
[2019-11-10 18:37] LABS: WBC,Urine Occasional #/hpf (0-3)
== END ==
PROVIDERS: Visit Provider Internal Medicine Nephrology
DX: N18.3 Chronic kidney disease, stage 3 (moderate) (principal)
CPT/HCPCS: 36415; 80069; 81001; 82570; 84155; 85025

== ENCOUNTER 2020-02-27 02:53 | Emergency (ER) | payer OTHER, SELFPAY ==
[2020-02-27 02:54] VITALS: BP 142/99; PULSE 81; RESP 16; TEMP 36.8; O2SAT 97; BMI 26.4
--- NOTE | 2020-02-27 03:15 | CT_ITS ---
PROCEDURE: CT HEAD/BRAIN WO CON CLINICAL INDICATION: headache COMPARISON: CT HEADWO CT head/brain wo con from 11/03/2017 TECHNIQUE: Axial images obtained. All CT scans at the facility use one or more dose reduction, viz: automated exposure control, ma/kV adjustment per patient size (including targeted exams where dose is matched to indication, i.e. head), or iterative reconstruction technique. FINDINGS: No midline shift, mass effect, intracranial hemorrhage, hydrocephalus, or extra-axial fluid collection is evident. The calvarium has an unremarkable appearance. No mastoid effusion. No sinus air-fluid level. IMPRESSION: No acute intracranial finding Dictated by: Jean Carlos David MD 02/27/2020 05:35 Jean Carlos David MD in [place] 02/27/2020 05:35
[2020-02-27 03:23] LABS: Basophils # 0.2 K/mm3 (0-0.2); Basophils % 1.3 % (0.1-2.0); Eosinophils # 0.6 K/mm3 (0.0-0.4); Hematocrit 47.9 % (42.0-52.0); Hemoglobin 16.5 g/dL (14.1-18.0); Lymphocytes # 1.7 K/mm3 (0.7-4.5); Lymphocytes % 15.7 % (10-50); Mean Corpuscular HGB Conc 34.5 g/dL (31.8-35.4); Mean Corpuscular Hemoglobin 31.2 pg (27.0-31.2); Mean Corpuscular Volume 90.4 fl (80-94); Mean Platelet Volume 7.6 fl (7.4-10.4); Monocytes % 8.8 % (1.7-9.3); Neutrophils # 7.7 K/mm3 (1.8-7.8); Neutrophils % 69.1 % (37.0-80.0); Platelet Count 344 K/mm3 (142-424); Red Cell Distribution Width 15.5 % (11.5-17.5); White Blood Count 11.1 K/mm3 (4.8-10.8)
[2020-02-27 03:25] LABS: Chloride 103 mmol/L (98-107); Potassium 4.1 mmoL/L (3.5-5.1); Sodium 136 mmol/L (136-145)
--- NOTE | 2020-02-27 03:25 | PC.NURSE ---
pt to CT
[2020-02-27 03:27] LABS: Alanine Aminotransferase 16 U/L (12-78); Aspartate Amino Transferase 28 U/L (17-59); Blood Urea Nitrogen 12 mg/dl (9-20); Creatinine Clearance Estimated 84 mL/min (50-200); Estimated Glomerular Filt Rate 54 ml/min (>60); GFR (African American) 66 ML/MIN (>60)
[2020-02-27 03:28] LABS: Albumin Level 3.5 g/dl (3.5-5.0); Albumin/Globulin Ratio 1.3 (1.1-1.8); Alkaline Phosphatase 162 U/L (38-126); Anion Gap 12.1 mEq/L (5-15); Bilirubin,Total 0.6 mg/dl (0.2-1.3); Carbon Dioxide 25 mmol/L (22.0-30.0); Globulin 2.8 g/dL (1.3-3.2); Glucose 115 mg/dl (74-100); Total Protein,Serum 6.3 g/dl (6.3-8.2)
--- NOTE | 2020-02-27 04:06 | HMH.EDHA ---
ED Disposition Clinical Impression: Headache Qualifiers: Headache type: unspecified Headache chronicity pattern: acute headache Intractability: not intractable Qualified Code(s): R51 - Headache Disposition: Home, Self-Care Condition on Discharge: Good Instructions: DI for Headache Additional Instructions: call dr barr am Referrals: Rohan Lam MD [Primary Care Provider] - - Critical Care Critical Care Time: No Attestation: On 02/27/20, the high probability of a clinically significant, sudden or life threatening deterioration of the following system(s) required my full and direct attention, intervention and personal management. The time I documented below is in addition to time spent performing reported procedures but includes the following listed in this critical care notation. Medical Decision Making - Medical Records Medical records reviewed: Yes: I reviewed the patient's medical records. - Chaparro Inquiry Pt receiving controlled substance: No Vital Signs: 02/27/20 02:54 Temperature 98.2 F Temperature Source Oral Pulse Rate [Left Radial] 81 Respiratory Rate 16 Blood Pressure [Right Arm] 142/99 H Blood Pressure Mean [Right Arm] 113 Blood Pressure Source [Right Arm] Automatic Cuff Blood Pressure Position [Right Arm] Sitting 02 Sat by Pulse Oximetry 97 Oxygen Delivery Method Room Air - Lab Data Lab results reviewed: Yes: I reviewed the patient's lab results. Lab Results 02/27/20 03:10: WBC 11.1 H, RBC 5.30, Hgb 16.5, Hct 47.9, MCV 90.4, MCH 31.2, MCHC 34.5, RDW 15.5, Plt Count 344, MPV 7.6, Neut % (Auto) 69.1, Lymph % (Auto) 15.7, Dane % (Auto) 8.8, Eos % (Auto) 5.0, Baso % (Auto) 1.3, Neut # (Auto) 7.7, Lymph # (Auto) 1.7, Dane # (Auto) 1.0, Eos # (Auto) 0.6 H, Baso # (Auto) 0.2 02/27/20 03:10: Sodium 136, Potassium 4.1, Chloride 103, Carbon Dioxide 25, Anion Gap 12.1, BUN 12, Creatinine 1.40 H, Estimated Creat Clear 84, Estimated GFR 54 L, Est GFR ( Amer) 66, Glucose 115 H, Calcium 9.0, Total Bilirubin 0.6, AST 28, ALT 16, Alkaline Phosphatase 162 H, Total Protein 6.3, Albumin 3.5, Globulin 2.8, Albumin/Globulin Ratio 1.3 Result diagrams: 02/27/20 03:10 02/27/20 03:10 Orders (Tests/Meds): ED MEDICATIONS Generic Name Dose Route Start Last Admin Trade Name Freq PRN Reason Stop Dose Admin Sodium Chloride 1,000 mls @ 999 mls/hr 02/27/20 03:15 02/27/20 03:23 Sod Chlor 0.9% 1000ml Bag IV 02/27/20 04:15 999 mls/hr .Q1H1M MAIKEL Administration Sodium Chloride 8 ml 02/27/20 03:15 02/27/20 03:24 Sodium Chloride 0.9% 10ml Vial IV 03/28/20 03:14 8 ml NEEDED PRN Administration dilute pepcid Discontinued Medications Generic Name Dose Route Start Last Admin Trade Name Freq PRN Reason Stop Dose Admin Diphenhydramine HCl 25 mg 02/27/20 03:15 02/27/20 03:23 Benadryl 50mg/1ml Vial IV 02/27/20 03:16 25 mg ONCE ONE Administration Famotidine 20 mg 02/27/20 03:15 02/27/20 03:23 Pepcid 20mg/2ml Vial IV 02/27/20 03:16 20 mg ONCE ONE Administration Ketorolac Tromethamine 30 mg 02/27/20 03:15 02/27/20 03:23 Toradol 30mg/Ml Vial IV 02/27/20 03:16 30 mg ONCE ONE Administration Methylprednisolone Sodium Succinate 125 mg 02/27/20 03:15 02/27/20 03:23 Solu-Medrol 125mg/2ml Vial IV 02/27/20 03:16 125 mg ONCE ONE Administration ORDERS Category Date Time Status CT head/brain wo con Stat Cat Scan 02/27/20 03:15 Taken - CT Data CT Scan: Head Time Received: 04:[address] Reviewed: Yes: I have viewed the radiologist's interpretation Preliminary Findings: Normal/NAD Headache HPI - General Chief Complaint: Headache Stated Complaint: migraine Time Seen by Provider: 02/27/20 03:10 Mode of Arrival: Ambulatory Source of Information: Patient, Medical Record Limitations: No Limitations Description of Symptoms (Recalled from ER Triage Doc. by RN): pt c/o a headache for the past 3 days without relief. pt denies taking
[2020-02-27 04:45] VITALS: BP 142/77; PULSE 69; RESP 16; TEMP 36.7; O2SAT 98
== END 2020-02-27 04:50 | disposition home or self-care (01) ==
PROVIDERS: Emergency Provider Emergency Medicine; PCP Family Medicine
DX: R51 Headache (principal); E78.5 Hyperlipidemia, unspecified; I10 Essential (primary) hypertension; I25.2 Old myocardial infarction; Z87.442 Personal history of urinary calculi; F17.210 Nicotine dependence, cigarettes, uncomplicated
CPT/HCPCS: 70450; 80053; 85025; 96365; 96374; 96375; 96376; 99282

== ENCOUNTER → 2020-07-10 12:46 | Outpatient (CLI) | payer OTHER, SELFPAY ==
[2020-07-10 12:48] LABS: Microscopic, Urine URINE MICROSCOPIC (MICROSCOPIC)
[2020-07-10 13:30] LABS: Appearance,Urine CLEAR (Clear); Bilirubin,Urine Negative (Negative); Blood, Urine 2+ (Negative); Color,Urine YELLOW (Yellow); Glucose,Urine (UA) TRACE (Negative); Ketones,Urine Negative (Negative); Leukocyte Esterase,Urine Negative (Negative); Nitrate,Urine Negative (Negative); PH,Urine 6.5 (5.0-8.5); Protein,Urine Negative (Negative); Urobilinogen,Urine 0.2 EU/dl (0.2)
[2020-07-10 13:37] LABS: Creatinine,Urine Random 178 mg/dL (Not Estab.)
[2020-07-10 13:44] LABS: Basophils # 0.2 K/mm3 (0-0.2); Basophils % 1.7 % (0.1-2.0); Eosinophils # 0.7 K/mm3 (0.0-0.4); Eosinophils % 6.1 % (0.1-12.0); Hematocrit 53.2 % (42.0-52.0); Hemoglobin 17.2 g/dL (14.1-18.0); Lymphocytes # 1.9 K/mm3 (0.7-4.5); Lymphocytes % 17.7 % (10-50); Mean Corpuscular HGB Conc 32.2 g/dL (31.8-35.4); Mean Corpuscular Hemoglobin 29.9 pg (27.0-31.2); Mean Corpuscular Volume 92.8 fl (80-94); Mean Platelet Volume 7.6 fl (7.4-10.4); Monocytes % 9.1 % (1.7-9.3); Neutrophils % 65.5 % (37.0-80.0); Platelet Count 341 K/mm3 (142-424); Red Blood Count 5.73 M/mm3 (4.60-6.20); Red Cell Distribution Width 15.8 % (11.5-17.5); White Blood Count 10.7 K/mm3 (4.8-10.8)
[2020-07-10 13:58] LABS: Albumin Level 4.3 g/dl (3.5-5.0); Anion Gap 13.6 mEq/L (5-15); Blood Urea Nitrogen 11 mg/dl (9-20); Carbon Dioxide 31 mmol/L (22.0-30.0); Chloride 98 mmol/L (98-107); Estimated Glomerular Filt Rate 54 ml/min (>60); GFR (African American) 66 ML/MIN (>60); Glucose 108 mg/dl (74-100); Potassium 4.6 mmoL/L (3.5-5.1); Sodium 138 mmol/L (136-145)
== END ==
PROVIDERS: Visit Provider Internal Medicine Nephrology
DX: N18.30 Chronic kidney disease, stage 3 unspecified (principal)
CPT/HCPCS: 36415; 80069; 81001; 82570; 84155; 85025

== ENCOUNTER 2020-08-08 10:25 | Emergency (ER) | payer OTHER, SELFPAY ==
[2020-08-08 10:32] VITALS: BP 156/106; PULSE 83; RESP 16; TEMP 37; O2SAT 98; BMI 28.5
[2020-08-08 10:40] VITALS: BP 156/106; PULSE 83; RESP 16; TEMP 37; O2SAT 98; BMI 28.7
--- NOTE | 2020-08-08 10:47 | XR_ITS ---
PROCEDURE: XR ELBOW RT MIN 3V CLINICAL INDICATION: PAIN COMPARISON: No exams were available for comparison FINDINGS: No fracture or dislocation. No lytic or blastic change. There is normal mineralization. The joint spaces are well-preserved. No significant degenerative/arthritic changes. No erosive changes evident. Other findings:Incidental note is made of an enthesophyte at the olecranon. No displaced fat pad.. IMPRESSION: No acute findings. Dictated by: Jean Carlos David MD 08/08/2020 11:12 Jean Carlos David MD in [place] 08/08/2020 11:12
--- NOTE | 2020-08-08 10:56 | HMH.EDUTC ---
[facility] [place] Disposition Clinical Impression: Muscle spasm Elbow pain Qualifiers: Laterality: right Qualified Code(s): M25.521 - Pain in right elbow Disposition: Home, Self-Care Condition on Discharge: Good Additional Instructions: Follow up with your Family Doctor for further treatment and evaluation if no improvement or any life threatening symptoms Warm compresses like with heating pad may help with spasm like pain Over the counter muscle rubs like biofreeze may help with pain along with over the counter lidocaine/pain patches Return if needed Straight to ER if any life threatening symptoms Prescriptions: methocarbamoL [Methocarbamol 500mg Tablet] 500 mg PO BID PRN #10 tab PRN Reason: Muscle Spasm Transmission Status: Pending to [id number] Referrals: Rohan Lam MD [Primary Care Provider] - As needed Forms: Work/School Release Time of Disposition: 11:33 Medical Decision Making - Chaparro Inquiry Pt receiving controlled substance: No Chaparro was queried for this patient: No Vital Signs: 08/08/20 10:32 08/08/20 10:40 Temperature 98.6 F 98.6 F Temperature Source Oral Oral Pulse Rate [Radial] 83 83 Respiratory Rate 16 16 Blood Pressure [Right Arm] 156/106 H 156/106 H Blood Pressure Mean [Right Arm] 122 122 Blood Pressure Source [Right Arm] Automatic Cuff Blood Pressure Position [Right Arm] Sitting Sitting 02 Sat by Pulse Oximetry 98 98 Oxygen Delivery Method Room Air Room Air - Radiology Data #1 Image(s): Elbow Image Reviewed: Yes I have reviewed radiologist's interpretation IMPRESSION: No acute findings. [facility] [place] HPI - General Stated complaint: injured rt elbow and left shoulder Time Seen by Provider: 08/08/20 10:56 Mode of Arrival: Ambulatory Source of Information: Patient Limitations: No Limitations Description of Symptoms (Recalled from Triage Doc. by RN): PATIENT C/O LEFT SHOULDER PAIN FOR APPROX 6 MONTHS AND RIGHT ELBOW PAIN X 1 YEAR. HE STATES HE INJURED LEFT SHOULDER SEVERAL YEARS AGO AND GETS CORTIZONE INJECTIONS IN IT SOMETIMES. 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 1 YEAR AGO HEENT Symptoms (Recalled from RN notes): No Resp Symptoms (Recalled from RN notes): No Skin Symptoms (Recalled from RN notes): No MS Symptoms (Recalled from RN notes): Yes Functional Status (Recalled from RN notes): WNL - History of Present Illness Provider Complaint: Patient state that he has been having pain in his left shoulder for years and had a cortisone shot and it helped but was throwing ball with his kids about 6mths ago and it started hurting again and has been hurting on and off since states that pain spasm like pain in his shoulder blade area, and wanted to get another cortisone shot in it State that also hit his elbow and on a pole months ago and has been having pain ever since in it too when he tries to lay it down on something but not with movement - Related Data Home Medications Medication Instructions Recorded Confirmed Aspirin 81 mg PO DAILY 10/19/17 02/27/20 Atorvastatin Calcium [Lipitor 80mg 80 mg PO DAILY 10/19/17 02/27/20 Tab] Isosorbide Mononitrate [Isosorbide 30 mg PO DAILY 10/19/17 02/27/20 Mononitrate ER] carvediloL [Coreg 25mg Tablet] 25 mg PO BID 10/19/17 02/27/20 tamsulosin 0.4 mg capsule 0.4 mg PO DAILY cap 06/27/19 02/27/20 omeprazole 20 mg capsule,delayed 20 mg PO DAILY cap 07/11/19 02/27/20 release Previous Rx's Medication Instructions Recorded methocarbamoL [Methocarbamol 500mg 500 mg PO BID PRN #10 tab 08/08/20 Tablet] Allergies Allergy/AdvReac Type Severity Reaction Status Date / Time lisinopril Allergy Verified 02/27/20 03:25 - Worker's Comp Is this a Worker's Comp case?: No [facility] History - Hepatitis A Screen Drug use history?: No High risk sexual behaviors?: No History of sexually transmitted infection?: No Currently employe
[2020-08-08 11:38] VITALS: BP 156/106; PULSE 83; RESP 16; TEMP 37; O2SAT 98
== END 2020-08-08 11:40 | disposition home or self-care (01) ==
LOC: ER 10:33 → UTC 10:34
PROVIDERS: Emergency Provider Nurse Practitioner; PCP Family Medicine
DX: M62.838 Other muscle spasm (principal); M25.521 Pain in right elbow; E78.5 Hyperlipidemia, unspecified; I10 Essential (primary) hypertension; I25.2 Old myocardial infarction; Z87.442 Personal history of urinary calculi; F17.210 Nicotine dependence, cigarettes, uncomplicated; Z79.899 Other long term (current) drug therapy
CPT/HCPCS: 73080; 99202; G0463

== ENCOUNTER → 2020-09-04 12:19 | Outpatient (CLI) | payer OTHER, SELFPAY ==
[2020-09-04 13:35] LABS: Basophils # 0.2 K/mm3 (0-0.2); Basophils % 1.4 % (0.1-2.0); Eosinophils # 0.6 K/mm3 (0.0-0.4); Eosinophils % 5.5 % (0.1-12.0); Hematocrit 50.6 % (42.0-52.0); Hemoglobin 16.9 g/dL (14.1-18.0); Lymphocytes # 2.3 K/mm3 (0.7-4.5); Lymphocytes % 20.5 % (10-50); Mean Corpuscular HGB Conc 33.3 g/dL (31.8-35.4); Mean Corpuscular Hemoglobin 29.9 pg (27.0-31.2); Mean Corpuscular Volume 89.7 fl (80-94); Mean Platelet Volume 7.6 fl (7.4-10.4); Monocytes # 1.2 K/mm3 (0.1-1.0); Monocytes % 10.9 % (1.7-9.3); Neutrophils % 61.6 % (37.0-80.0); Platelet Count 335 K/mm3 (142-424); Red Blood Count 5.64 M/mm3 (4.60-6.20); Red Cell Distribution Width 14.9 % (11.5-17.5); White Blood Count 11.4 K/mm3 (4.8-10.8)
== END ==
PROVIDERS: PCP Family Medicine; Visit Provider Family Medicine
DX: Z20.822 Contact with and (suspected) exposure to COVID-19 (principal)
CPT/HCPCS: 36415; 85025; U0003

== ENCOUNTER 2020-11-27 10:40 | Emergency (ER) | payer OTHER, SELFPAY ==
[2020-11-27 11:01] VITALS: BP 153/87; PULSE 95; RESP 16; TEMP 37.1; O2SAT 96; BMI 28.4
--- NOTE | 2020-11-27 11:35 | HMH.EDUTC ---
[facility] [place] Disposition Clinical Impression: Nausea & vomiting Qualifiers: Vomiting type: unspecified Vomiting Intractability: unspecified Qualified Code(s): R11.2 - Nausea with vomiting, unspecified Disposition: Home, Self-Care Condition on Discharge: Good Instructions: Nausea and Vomiting-Adult, Ondansetron Additional Instructions: Drink extra fluids with and between meals. If you have difficulty drinking, try very small amounts of water or suck on ice chips. ? Avoid fruit juices, as these do not replace minerals and can actually increase diarrhea. ? Children and adults can use sports drinks to replenish electrolytes. Younger children and infants should use products formulated for children, like oral rehydration solutions. ? Eat food in small amounts and let your stomach recover. ? Get lots of rest. You may feel tired or weak. ? No greasy or fried foods for the next 24-48 hours BRAT diet Bananas Rice Apples and [place] ? Make sure to drink plenty of liquids ? Return if needed ? Straight to ER if any life threatening symptoms ? Zofran as prescribed ?? Follow up with family doctor in the next 48-72 hours if no improvement or any worsening of symptoms Prescriptions: Ondansetron [Zofran 4mg ODT] 4 mg PO TIDP PRN #10 tab PRN Reason: Nausea Transmission Status: Received by [id number] Referrals: Rohan Lam MD [Primary Care Provider] - As needed Forms: Work/School Release Time of Disposition: 11:41 Medical Decision Making - Chaparro Inquiry Pt receiving controlled substance: No Chaparro was queried for this patient: No Vital Signs: 11/27/20 11:01 Temperature 98.7 F Temperature Source Tympanic Pulse Rate [Right] 95 H Respiratory Rate 16 Blood Pressure [Right Arm] 153/87 H Blood Pressure Mean [Right Arm] 109 Blood Pressure Source [Right Arm] Automatic Cuff Blood Pressure Position [Right Arm] Sitting 02 Sat by Pulse Oximetry 96 [facility] [place] HPI - General Stated complaint: nausea, vomiting Time Seen by Provider: 11/27/20 11:38 Mode of Arrival: Ambulatory Source of Information: Patient Limitations: No Limitations Description of Symptoms (Recalled from Triage Doc. by RN): pt states, I'm feeling bad around my belly. I've been up all night throwing up and some this morning. HEENT Symptoms (Recalled from RN notes): No Resp Symptoms (Recalled from RN notes): No Skin Symptoms (Recalled from RN notes): No MS Symptoms (Recalled from RN notes): No Functional Status (Recalled from RN notes): na - History of Present Illness Provider Complaint: Patient state that his son recently had stomach virus and thinks he may have given it to him State that he was up most of the night with nausea and vomiting and was unable to go to work this morning - Related Data Home Medications Medication Instructions Recorded Confirmed Aspirin 81 mg PO DAILY 10/19/17 02/27/20 Atorvastatin Calcium [Lipitor 80mg 80 mg PO DAILY 10/19/17 02/27/20 Tab] Isosorbide Mononitrate [Isosorbide 30 mg PO DAILY 10/19/17 02/27/20 Mononitrate ER] carvediloL [Coreg 25mg Tablet] 25 mg PO BID 10/19/17 02/27/20 tamsulosin 0.4 mg capsule 0.4 mg PO DAILY cap 06/27/19 02/27/20 omeprazole 20 mg capsule,delayed 20 mg PO DAILY cap 07/11/19 02/27/20 release Previous Rx's Medication Instructions Recorded methocarbamoL [Methocarbamol 500mg 500 mg PO BID PRN #10 tab 08/08/20 Tablet] Ondansetron [Zofran 4mg ODT] 4 mg PO TIDP PRN #10 tab 11/27/20 Allergies Allergy/AdvReac Type Severity Reaction Status Date / Time lisinopril Allergy Verified 02/27/20 03:25 - Worker's Comp Is this a Worker's Comp case?: No [facility] History - Hepatitis A Screen Drug use history?: No High risk sexual behaviors?: No History of sexually transmitted infection?: No Currently employed?: No Childcare worker?: No Do you have indoor plumbing?: Yes Do you have electricity?: Yes Attestation statement:: This patient has been screened for Hepat
[2020-11-27 11:52] VITALS: BP 148/89; PULSE 94; RESP 16; TEMP 36.6
== END 2020-11-27 11:57 | disposition home or self-care (01) ==
PROVIDERS: Emergency Provider Nurse Practitioner; PCP Family Medicine
DX: R11.2 Nausea with vomiting, unspecified (principal); E78.5 Hyperlipidemia, unspecified; I10 Essential (primary) hypertension; I25.2 Old myocardial infarction; N28.9 Disorder of kidney and ureter, unspecified; Z87.442 Personal history of urinary calculi; F17.210 Nicotine dependence, cigarettes, uncomplicated; Z79.899 Other long term (current) drug therapy
CPT/HCPCS: 99202; G0463

== ENCOUNTER 2020-12-30 04:31 | Emergency (ER) | payer OTHER, SELFPAY ==
[2020-12-30] VITALS (9 sets, daily range): BP systolic 144–175; BP diastolic 89–97; PULSE 67–76; RESP 18–20; TEMP 36.6; O2SAT 91–98; BMI 28.4
--- NOTE | 2020-12-30 04:45 | ECG_ITS ---
APPROVED REPORT Exam: Resting ECG HR:69 bpm ECG Measurements Heart Rate 69 AXES TX 136 P 18 QRSd 82 QRS 70 QT 442 T 122 QTc 473 Conclusion Normal sinus rhythm Nonspecific ST abnormality Abnormal ECG Electronically signed by : Jelani Cisneros, 12/30/2020 22:09:34
--- NOTE | 2020-12-30 04:54 | XR_ITS ---
PROCEDURE INFORMATION: Exam: XR Chest Exam date and time: 12/30/2020 4:54 AM Age: 50 years old Clinical indication: Patient HX: HTN, headache; Additional info: BP TECHNIQUE: Imaging protocol: XR of the chest. Views: 2 views. COMPARISON: CR CXR1VP XR chest portable 11/05/2017 3:13 AM FINDINGS: Lungs: Unremarkable. No consolidation. Pleural spaces: Unremarkable. No pleural effusion. No pneumothorax. Heart/Mediastinum: Unremarkable. No cardiomegaly. Bones/joints: Unremarkable. IMPRESSION: No acute findings.
--- NOTE | 2020-12-30 05:05 | PC.NURSE ---
Pt with rad.
[2020-12-30 05:22] LABS: Basophils # 0.2 K/mm3 (0-0.2); Basophils % 1.5 % (0.1-2.0); Eosinophils # 0.6 K/mm3 (0.0-0.4); Eosinophils % 4.6 % (0.1-12.0); Hematocrit 46.1 % (42.0-52.0); Hemoglobin 15.5 g/dL (14.1-18.0); Lymphocytes # 2.3 K/mm3 (0.7-4.5); Lymphocytes % 17.9 % (10-50); Mean Corpuscular HGB Conc 33.5 g/dL (31.8-35.4); Mean Corpuscular Hemoglobin 29.5 pg (27.0-31.2); Mean Corpuscular Volume 88.1 fl (80-94); Mean Platelet Volume 7.7 fl (7.4-10.4); Monocytes # 0.8 K/mm3 (0.1-1.0); Monocytes % 5.8 % (1.7-9.3); Neutrophils # 9.1 K/mm3 (1.8-7.8); Neutrophils % 70.3 % (37.0-80.0); Platelet Count 409 K/mm3 (142-424); Red Blood Count 5.24 M/mm3 (4.60-6.20); Red Cell Distribution Width 16.1 % (11.5-17.5)
[2020-12-30 05:30] LABS: Anion Gap 12.5 mEq/L (5-15); Blood Urea Nitrogen 15 mg/dl (9-20); Calcium 8.7 mg/dl (8.4-10.2); Carbon Dioxide 26 mmol/L (22.0-30.0); Chloride 101 mmol/L (98-107); Creatinine Clearance Estimated 79 mL/min (50-200); Estimated Glomerular Filt Rate 50 ml/min (>60); GFR (African American) 60 ML/MIN (>60); Glucose 168 mg/dl (74-100); Potassium 3.5 mmoL/L (3.5-5.1); Sodium 136 mmol/L (136-145)
[2020-12-30 05:31] LABS: Alanine Aminotransferase 16 U/L (12-78); Albumin Level 3.7 g/dl (3.5-5.0); Alkaline Phosphatase 142 U/L (38-126); Aspartate Amino Transferase 26 U/L (17-59); Bilirubin,Direct 0.5 mg/dl (0.0-0.4); Bilirubin,Total 0.5 mg/dl (0.2-1.3); Total Protein,Serum 6.3 g/dl (6.3-8.2)
[2020-12-30 05:36] LABS: C-Reactive Protein 7.2 mg/L (0-4)
[2020-12-30 05:45] LABS: Erythrocyte Sedimentation Rate 8 mm/hr (0-15); Troponin I 0.02 ng/ml (0.00-0.034)
[2020-12-30 05:49] LABS: Procalcitonin 0.182 ng/mL (0.0-2.0)
--- NOTE | 2020-12-30 06:40 | HMH.EDHA ---
ED Disposition Clinical Impression: Hypertensive urgency Headache Qualifiers: Headache type: unspecified Headache chronicity pattern: acute headache Intractability: not intractable Qualified Code(s): R51.9 - Headache, unspecified Disposition: Home, Self-Care Condition on Discharge: Good Instructions: DI for Headache Additional Instructions: call and see pcp this am Prescriptions: Irbesartan 150 mg PO DAILY #21 tab Transmission Status: Pending to [id number] Referrals: Rohan Lam MD [Primary Care Provider] - - Critical Care Critical Care Time: No Attestation: On 12/30/20, the high probability of a clinically significant, sudden or life threatening deterioration of the following system(s) required my full and direct attention, intervention and personal management. The time I documented below is in addition to time spent performing reported procedures but includes the following listed in this critical care notation. Medical Decision Making - Medical Records Medical records reviewed: Yes: I reviewed the patient's medical records. - Chaparro Inquiry Pt receiving controlled substance: No Vital Signs: 12/30/20 04:32 12/30/20 04:59 12/30/20 05:30 Temperature 97.9 F Temperature Source Oral Pulse Rate 72 71 Pulse Rate [Left Radial] 71 Respiratory Rate 18 Blood Pressure 157/97 H 160/94 H Blood Pressure [Right Arm] 170/91 H Blood Pressure Mean 123 Blood Pressure Mean [Right Arm] 117 Blood Pressure Source Blood Pressure Source [Right Arm] Automatic Cuff Blood Pressure Position Blood Pressure Position [Right Arm] Sitting 02 Sat by Pulse Oximetry 94 L 95 96 Oxygen Delivery Method Room Air Room Air 12/30/20 05:53 12/30/20 06:00 12/30/20 06:23 Temperature Temperature Source Pulse Rate 70 74 76 Pulse Rate [Left Radial] Respiratory Rate Blood Pressure 174/96 H 175/97 H 162/90 H Blood Pressure [Right Arm] Blood Pressure Mean 132 123 Blood Pressure Mean [Right Arm] Blood Pressure Source Manual Cuff/ Auscultation Blood Pressure Source [Right Arm] Blood Pressure Position Supine Blood Pressure Position [Right Arm] 02 Sat by Pulse Oximetry 98 91 L Oxygen Delivery Method 12/30/20 06:30 Temperature Temperature Source Pulse Rate 69 Pulse Rate [Left Radial] Respiratory Rate Blood Pressure 163/94 H Blood Pressure [Right Arm] Blood Pressure Mean Blood Pressure Mean [Right Arm] Blood Pressure Source Blood Pressure Source [Right Arm] Blood Pressure Position Blood Pressure Position [Right Arm] 02 Sat by Pulse Oximetry 94 L Oxygen Delivery Method - Lab Data Lab results reviewed: Yes: I reviewed the patient's lab results. Lab Results 12/30/20 04:46: WBC 13.0 H, RBC 5.24, Hgb 15.5, Hct 46.1, MCV 88.1, MCH 29.5, MCHC 33.5, RDW 16.1, Plt Count 409, MPV 7.7, Neut % (Auto) 70.3, Lymph % (Auto) 17.9, [place] % (Auto) 5.8, Eos % (Auto) 4.6, Baso % (Auto) 1.5, Neut # (Auto) 9.1 H, Lymph # (Auto) 2.3, [place] # (Auto) 0.8, Eos # (Auto) 0.6 H, Baso # (Auto) 0.2, ESR 8 12/30/20 04:46: Sodium 136, Potassium 3.5, Chloride 101, Carbon Dioxide 26, Anion Gap 12.5, BUN 15, Creatinine 1.50 H, Estimated Creat Clear 79, Estimated GFR 50 L, Est GFR ( Amer) 60, Glucose 168 H, Calcium 8.7, Troponin I 0.02, C-Reactive Protein 7.2 H, Procalcitonin 0.182 12/30/20 04:46: Total Bilirubin 0.5, Direct Bilirubin 0.5 H, Conjugated Bilirubin 0.0, Indirect Bilirubin 0.0, Unconjugated Bilirubin 0.0, AST 26, ALT 16, Alkaline Phosphatase 142 H, Total Protein 6.3, Albumin 3.7 Result diagrams: 12/30/20 04:46 12/30/20 04:46 Orders (Tests/Meds): ED MEDICATIONS Discontinued Medications Generic Name Dose Route Start Last Admin Trade Name Melissa PRN Reason Stop Dose Admin Clonidine HCl 0.1 mg 12/30/20 04:54 12/30/20 06:01 Clonidine 0.1mg Tablet PO 12/30/20 04:55 Not Given ONCE ONE Diphenhydramine HCl 50 mg 12/30/20 05:42 12/30/20 05:50
--- NOTE | 2020-12-30 06:41 | CT_ITS ---
PROCEDURE INFORMATION: Exam: CT Head Without Contrast Exam date and time: 12/30/2020 6:41 AM Age: 50 years old Clinical indication: Pain; Headache; Tension; Additional info: BOONE TECHNIQUE: Imaging protocol: Computed tomography of the head without contrast. Radiation optimization: All CT scans at this facility use at least one of these dose optimization techniques: automated exposure control; mA and/or kV adjustment per patient size (includes targeted exams where dose is matched to clinical indication); or iterative reconstruction. COMPARISON: CT HEAD/BRAIN WO CON 02/27/2020 3:23 AM FINDINGS: Brain: Mild atrophy. No intracranial hemorrhage. No mass. No definite edema. Cerebral ventricles: No hydrocephalus. Paranasal sinuses: No acute sinusitis. Mastoid air cells: No significant effusion. Auditory system: Debris within external auditory canal(s), presumably cerumen. Orbital cavity: Unremarkable as visualized. Bones/joints: No acute fracture. Soft tissues: Unremarkable. IMPRESSION: No definite acute intracranial abnormality. If symptoms persist, consider MRI.
--- NOTE | 2020-12-30 06:47 | PC.NURSE ---
pt to rad.
== END 2020-12-30 08:31 | disposition home or self-care (01) ==
PROVIDERS: Emergency Provider Emergency Medicine; PCP Family Medicine
DX: I16.0 Hypertensive urgency (principal); R51.9 Headache, unspecified; I25.2 Old myocardial infarction; E78.5 Hyperlipidemia, unspecified; F17.210 Nicotine dependence, cigarettes, uncomplicated
CPT/HCPCS: 70450; 71046; 80048; 80076; 84145; 84484; 85025; 85651; 86140; 93005; 96365; 96375; 99283

== ENCOUNTER 2021-01-21 09:05 | Emergency (ER) | payer OTHER, SELFPAY ==
--- NOTE | 2021-01-21 09:21 | HMH.EDUTC ---
[facility] [place] Disposition Clinical Impression: Viral syndrome Disposition: Home, Self-Care Condition on Discharge: Good Instructions: DI for COVID-19 (Suspected or Confirmed ), Preventing the Spread of Coronavirus Discharge Instructions Additional Instructions: Drink plenty of fluids. Take tylenol for pain or fever. Return if you begin to have difficulty breathing. Follow up with your regular doctor. GO TO THE ER FOR ANY WORSENING SYMPTOMS Prescriptions: Ondansetron [Zofran 4mg ODT] 4 mg PO Q8HP PRN #20 tab.rapdis PRN Reason: Nausea [id number] Referrals: Rohan Lam MD [Primary Care Provider] - Forms: Work/School Release Time of Disposition: 09:24 Medical Decision Making - Medical Records Medical records reviewed: No: I reviewed the patient's medical records. - Chaparro Inquiry Pt receiving controlled substance: No Vital Signs: 01/21/21 09:25 01/21/21 09:30 01/21/21 09:33 Temperature 98.9 F 98.2 F 98.2 F Temperature Source Tympanic Pulse Rate 69 80 Pulse Rate [Right Brachial] 80 Respiratory Rate 20 16 16 Blood Pressure 124/77 99/61 L Blood Pressure [Right Arm] 99/61 L Blood Pressure Mean [Right Arm] 73 02 Sat by Pulse Oximetry 96 [facility] [place] HPI - General Stated complaint: covid test Time Seen by Provider: 01/21/21 09:21 - History of Present Illness Provider Complaint: He states that for the past 2 days he has been having n/d, body aches, sore throat and cough. He has been exposed to covid-19 by one of the people he rides to work with having it. He denies any chest pain and shortness of breath. Onset (ago): minute(s) - Related Data Home Medications Medication Instructions Recorded Confirmed Aspirin 81 mg PO DAILY 10/19/17 12/30/20 Atorvastatin Calcium [Lipitor 80mg 80 mg PO DAILY 10/19/17 12/30/20 Tab] Isosorbide Mononitrate [Isosorbide 30 mg PO DAILY 10/19/17 12/30/20 Mononitrate ER] carvediloL [Coreg 25mg Tablet] 25 mg PO BID 10/19/17 12/30/20 omeprazole 20 mg capsule,delayed 20 mg PO DAILY cap 07/11/19 12/30/20 release Previous Rx's Medication Instructions Recorded Irbesartan 150 mg PO DAILY #21 tab 12/30/20 Ondansetron [Zofran 4mg ODT] 4 mg PO Q8HP PRN #20 tab.rapdis 01/21/21 Allergies Allergy/AdvReac Type Severity Reaction Status Date / Time lisinopril Allergy Verified 02/27/20 03:25 [facility] History - Hepatitis A Screen Attestation statement:: This patient has been screened for Hepatitis A risk factors. I have reviewed the patient's past medical history: Yes Medical History: Reports:: Hiatal Hernia, Hyperlipidemia, Hypertension, Kidney Stones, Myocardial Infarction, Renal Disease Denies:: Cancer, Diabetes Mellitus Type 1, Diabetes Mellitus Type 2, MRSA Other Medical History: Reports: Sinus Problems Comment: HEART ATTACK---2017. HBP. KIDNEY STONES Other Surgeries: Yes: Angiogram, Cardiac Catheterization, Hernia Repair Amputation: No Fractures: No Comment: STOMACH HERNIA REPAIR - Social History Smoking Status: Current every day smoker Tobacco Type: cigarettes # Packs/Day (cigarettes): 2 Alcohol Intake: never Alcohol Intake Frequency:: other Substance Use Type: denies use Occupational Status: other Housing: house Household Members: spouse, significant other, family, children Family Hx:: Diabetes, Hyperlipidemia, Hypertension ROS Obtained: Yes All systems reviewed & no additional complaints - Constitutional Constitutional: Reports system reviewed and no additional complaints, except as docu - Eyes Eyes: Reports system reviewed and no additional complaints, except as docu - ENT Ears, Nose, Mouth, and Throat: Reports system reviewed and no additional complaints, except as docu - Cardiovascular Cardiovascular: Reports system reviewed and no additional complaints, except as docu - Respiratory Respiratory: Reports system reviewed and no additional complaints, ex
[2021-01-21 09:25] VITALS: BP 124/77; PULSE 69; RESP 20; TEMP 37.2; O2SAT 97
[2021-01-21 09:30] VITALS: BP 99/61; PULSE 80; RESP 16; TEMP 36.8; O2SAT 96; BMI 28.4
[2021-01-21 09:33] VITALS: BP 99/61; PULSE 80; RESP 16; TEMP 36.8; O2SAT 96
== END 2021-01-21 09:55 | disposition home or self-care (01) ==
PROVIDERS: Emergency Provider Nurse Practitioner Family; PCP Family Medicine
DX: B34.9 Viral infection, unspecified (principal); Z20.822 Contact with and (suspected) exposure to COVID-19; I10 Essential (primary) hypertension; E78.5 Hyperlipidemia, unspecified; I25.2 Old myocardial infarction; Z87.442 Personal history of urinary calculi; F17.210 Nicotine dependence, cigarettes, uncomplicated; Z79.899 Other long term (current) drug therapy
CPT/HCPCS: 99202; G0463; U0003

== ENCOUNTER 2021-07-23 10:34 | Emergency (ER) | payer OTHER, SELFPAY ==
[2021-07-23 11:01] VITALS: BP 107/69; PULSE 76; RESP 19; TEMP 36.6; O2SAT 97; BMI 28.0
[2021-07-23 11:21] LABS: UTC Influenza A Antigen Negative (Negative); UTC Influenza B Antigen Negative (Negative)
--- NOTE | 2021-07-23 11:24 | HMH.EDUTC ---
[facility] [place] Disposition Clinical Impression: Sinusitis Qualifiers: Sinusitis location: unspecified location Chronicity: unspecified Qualified Code(s): J32.9 - Chronic sinusitis, unspecified Disposition: Home, Self-Care Condition on Discharge: Good Instructions: Sinusitis, Sinus Headache, DI for Sinusitis Additional Instructions: *Monitor Temp, Over the counter Motrin or Tylenol as directed/as needed Tylenol every 4 hours and Motrin every 6 hours (as long as your family doctor has told you that you can take it) for fever or pain. and straight to ER if unable to lower temp less than 101.0 after medication given *Warm salt water gargles may help to soothe the throat *Throat Lozenges *Warm fluids like tea with honey may help to soothe the throat *Sleep elevated *Humidifier/Vaporizer Follow up IMMEDIATELY for new or worsening symptoms or no Noticeable improvement over the next 48-72 hours. 911 for difficulty breathing or swallowing You were tested for today for COVID19 your test result should be back in the next 24-48 hours, you may check your results on the [facility] if you have trouble logging on or checking your results you may call support If you are positive someone from the hospital will be calling you Make sure to take your Vitamins Vit. C Vit D and Zinc if you can take them Prescriptions: Benzonatate [Benzonatate 100mg cap] 100 mg PO Q8HP PRN #15 cap PRN Reason: Cough Transmission Status: Sent to [facility] Amoxicillin/Potassium Clav [Augmentin 875-125 Tablet] 1 tab PO Q12H 7 Days #14 tab Transmission Status: [facility] predniSONE [Deltasone 10mg tablet] 10 mg PO BID 5 Days #10 tab Transmission Status: [facility] Referrals: Rohan Lam MD [Primary Care Provider] - As needed Forms: Work/School Release Time of Disposition: 11:37 Medical Decision Making - Chaparro Inquiry Pt receiving controlled substance: No Chaparro was queried for this patient: No Vital Signs: 07/23/21 11:01 Temperature 97.9 F Temperature Source Oral Pulse Rate [Left] 76 Respiratory Rate 19 Blood Pressure [Right Arm] 107/69 L Blood Pressure Mean [Right Arm] 81 02 Sat by Pulse Oximetry 97 - Lab Data Lab Results 07/23/21 11:10: Influenza Type A Ag Negative, Influenza Type B Ag Negative Orders (Tests/Meds): ORDERS Category Date Time Status Covid-19 Nasal PCR ([facility]) Routine Lab 07/23/21 11:06 Received Medical Decision Narrative: Patient state that he has taken augmentin and prednisone in the past without complications or reactions [facility] [place] HPI - General Stated complaint: body aches, runny nose Time Seen by Provider: 07/23/21 11:24 Mode of Arrival: Ambulatory Source of Information: Patient Limitations: No Limitations Description of Symptoms (Recalled from Triage Doc. by RN): pt c/o sinus pressure/drainage, cough and body aches x2days. HEENT Symptoms (Recalled from RN notes): Yes Resp Symptoms (Recalled from RN notes): Yes Skin Symptoms (Recalled from RN notes): No MS Symptoms (Recalled from RN notes): No Functional Status (Recalled from RN notes): wnl - History of Present Illness Provider Complaint: Patient states that he has been having sinus issues but for the last couple of days they have continued to get worse States that he is blowing yellowish green mucous from his nose and having pain and pressure behind his eyes States that he has also been having fever, chills and bodyaches - Related Data Home Medications Medication Instructions Recorded Confirmed Aspirin 81 mg PO DAILY 10/19/17 12/30/20 Atorvastatin Calcium [Lipitor 80mg 80 mg PO DAILY 10/19/17 12/30/20 Tab] Isosorbide Mononitrate [Isosorbide 30 mg PO DAILY 10/19/17 12/30/20 Mononitrate ER] carvediloL [Coreg 25mg Tablet] 25 mg PO BID 10/19/17 12/30/20 omeprazole 20 mg capsule,delayed 20 mg PO DAILY cap 07/11/19 12/30/20 release Previous Rx's Medication Instr
[2021-07-23 11:44] VITALS: BP 107/69; PULSE 76; RESP 19; TEMP 36.6
== END 2021-07-23 11:44 | disposition home or self-care (01) ==
PROVIDERS: Emergency Provider Nurse Practitioner; PCP Family Medicine
DX: U07.1 COVID-19 (principal); J32.9 Chronic sinusitis, unspecified; I10 Essential (primary) hypertension; I25.2 Old myocardial infarction; E78.5 Hyperlipidemia, unspecified; F17.210 Nicotine dependence, cigarettes, uncomplicated
CPT/HCPCS: 87804; 99202; C9803; G0463; U0003; U0005

== ENCOUNTER 2021-08-04 09:04 | Emergency (ER) | payer OTHER, SELFPAY ==
[2021-08-04 09:23] VITALS: BP 99/58; PULSE 67; RESP 18; TEMP 36.7; O2SAT 98; BMI 27.8
--- NOTE | 2021-08-04 09:30 | XR_ITS ---
FINAL REPORT CLINICAL HISTORY: cough COMPARISON: 12/30/2020 FINDINGS: 2 views of the chest were obtained . The heart is normal in size. The mediastinum is within normal limits. The lungs are clear. There is no pneumothorax. Osseous structures are unremarkable. IMPRESSION: No acute cardiopulmonary process. Reviewed, Interpreted and Dictated by Wai Caba MD Transcribed by Lucille Marte Authenticated by Wai Caba MD on 08/04/2021 11:17:06 AM [facility]
--- NOTE | 2021-08-04 09:34 | HMH.EDUTC ---
[facility] [place] [place] Disposition Clinical Impression: COVID-19, Viral syndrome Acute bronchitis Qualifiers: Bronchitis organism: unspecified organism Qualified Code(s): J20.9 - Acute bronchitis, unspecified Disposition: Home, Self-Care Condition on Discharge: Good Instructions: Acute Bronchitis, DI for Acute Bronchitis, DI for COVID-19 (Suspected or Confirmed ), Preventing the Spread of Coronavirus Discharge Instructions Additional Instructions: Drink plenty of fluids. Take tylenol or ibuprofen for pain or fever. Take the medications as directed. Follow up with your regular doctor. GO TO THE ER FOR ANY WORSENING SYMPTOMS Prescriptions: Ondansetron [Zofran 4mg ODT] 4 mg PO Q8HP PRN #20 tab PRN Reason: Nausea Transmission Status: Received by [facility] methylPREDNISolone [Medrol] 4 mg PO DIRECTED 6 Days #21 packet Transmission Status: Received by [facility] Referrals: Rohan Lam MD [Primary Care Provider] - Forms: Work/School Release Time of Disposition: 11:21 Medical Decision Making - Medical Records Medical records reviewed: No: I reviewed the patient's medical records. - Chaparro Inquiry Pt receiving controlled substance: No Vital Signs: 08/04/21 09:23 08/04/21 11:58 Temperature 98.1 F 98.1 F Temperature Source Oral Pulse Rate 78 Pulse Rate [Right Brachial] 67 Respiratory Rate 18 18 Blood Pressure 115/55 L Blood Pressure [Right Arm] 99/58 L Blood Pressure Mean [Right Arm] 71 Blood Pressure Source [Right Arm] Automatic Cuff Blood Pressure Position Sitting Blood Pressure Position [Right Arm] Sitting 02 Sat by Pulse Oximetry 98 Oxygen Delivery Method Room Air - Lab Data Lab results reviewed: Yes: I reviewed the patient's lab results. Lab Results 08/04/21 09:45: WBC 12.7 H, RBC 4.90, Hgb 16.2, Hct 48.3, MCV 98.5 H, MCH 33.0 H, MCHC 33.6, RDW 16.5, Plt Count 342, MPV 7.7, Neut % (Auto) 75.4, Lymph % (Auto) 14.5, [place] % (Auto) 6.9, Eos % (Auto) 2.3, Baso % (Auto) 0.9, Neut # (Auto) 9.6 H, Lymph # (Auto) 1.8, [place] # (Auto) 0.9, Eos # (Auto) 0.3, Baso # (Auto) 0.1 08/04/21 09:45: Sodium 134 L, Potassium 3.6, Chloride 101, Carbon Dioxide 27, Anion Gap 9.6, BUN 12, Creatinine 1.50 H, Estimated Creat Clear 76, Estimated GFR 50 L, Est GFR ( Amer) 60, Glucose 107 H, Calcium 8.3 L, Total Bilirubin 1.1, AST 32, ALT 17, Alkaline Phosphatase 123, Total Protein 6.7, Albumin 3.9, Globulin 2.8, Albumin/Globulin Ratio 1.4 Result diagrams: 08/04/21 09:45 08/04/21 09:45 Orders (Tests/Meds): ED MEDICATIONS Discontinued Medications Generic Name Dose Route Start Last Admin Trade Name Freq PRN Reason Stop Dose Admin Ceftriaxone Sodium 1 gm 08/04/21 10:55 Ceftriaxone 1gm Vial IV 08/04/21 10:56 ONCE ONE Ceftriaxone Sodium 1 gm 08/04/21 11:04 08/04/21 11:07 Ceftriaxone 1gm Vial IM 08/04/21 11:05 1 gm ONCE ONE Administration Sodium Chloride 1,000 mls @ 500 mls/hr 08/04/21 09:45 08/04/21 09:45 Sod Chlor 0.9% 1000ml Bag IV 09/03/21 09:44 500 mls/hr .Q2H MAIKEL Administration Lidocaine HCl 0 ml 08/04/21 11:04 08/04/21 11:07 Lidocaine 1% 5ml Pf Vial IM 08/04/21 11:05 2.1 ml ONCE ONE Administration - Radiology Data #1 Image(s): Chest Image Reviewed: Yes I reviewed the patient's radiology image Preliminary Findings: No Infiltrates Seen FINAL REPORT CLINICAL HISTORY: cough COMPARISON: 12/30/2020 FINDINGS: 2 views of the chest were obtained . The heart is normal in size. The mediastinum is within normal limits. The lungs are clear. There is no pneumothorax. Osseous structures are unremarkable. IMPRESSION: No acute cardiopulmonary process. Reviewed, Interpreted and Dictated by Wai Caba MD Transcribed by Lucille Marte Authenticated by Wai Caba MD on 08/04/2021 11:17:06 AM [facility] HPI - General Stated complaint: abd pain, body aches, SOA Time See
[2021-08-04 10:01] LABS: Chloride 101 mmol/L (98-107); Potassium 3.6 mmoL/L (3.5-5.1); Sodium 134 mmol/L (136-145)
[2021-08-04 10:02] LABS: Basophils # 0.1 K/mm3 (0-0.2); Basophils % 0.9 % (0.1-2.0); Eosinophils # 0.3 K/mm3 (0.0-0.4); Eosinophils % 2.3 % (0.1-12.0); Hematocrit 48.3 % (42.0-52.0); Hemoglobin 16.2 g/dL (14.1-18.0); Lymphocytes # 1.8 K/mm3 (0.7-4.5); Lymphocytes % 14.5 % (10-50); Mean Corpuscular HGB Conc 33.6 g/dL (31.8-35.4); Mean Corpuscular Volume 98.5 fl (80-94); Mean Platelet Volume 7.7 fl (7.4-10.4); Monocytes # 0.9 K/mm3 (0.1-1.0); Monocytes % 6.9 % (1.7-9.3); Neutrophils # 9.6 K/mm3 (1.8-7.8); Neutrophils % 75.4 % (37.0-80.0); Platelet Count 342 K/mm3 (142-424); Red Cell Distribution Width 16.5 % (11.5-17.5); White Blood Count 12.7 K/mm3 (4.8-10.8)
[2021-08-04 10:04] LABS: Alanine Aminotransferase 17 U/L (12-78); Albumin Level 3.9 g/dl (3.5-5.0); Albumin/Globulin Ratio 1.4 (1.1-1.8); Alkaline Phosphatase 123 U/L (38-126); Anion Gap 9.6 mEq/L (5-15); Aspartate Amino Transferase 32 U/L (17-59); Bilirubin,Total 1.1 mg/dl (0.2-1.3); Blood Urea Nitrogen 12 mg/dl (9-20); Calcium 8.3 mg/dl (8.4-10.2); Carbon Dioxide 27 mmol/L (22.0-30.0); Creatinine Clearance Estimated 76 mL/min (50-200); Estimated Glomerular Filt Rate 50 ml/min (>60); GFR (African American) 60 ML/MIN (>60); Globulin 2.8 g/dL (1.3-3.2); Glucose 107 mg/dl (74-100); Total Protein,Serum 6.7 g/dl (6.3-8.2)
[2021-08-04 11:58] VITALS: BP 115/55; PULSE 78; RESP 18; TEMP 36.7; O2SAT 98
== END 2021-08-04 11:58 | disposition home or self-care (01) ==
PROVIDERS: Emergency Provider Nurse Practitioner Family; PCP Family Medicine
DX: U07.1 COVID-19 (principal); E86.0 Dehydration; J20.9 Acute bronchitis, unspecified; I10 Essential (primary) hypertension
CPT/HCPCS: 71046; 80053; 85025; 96360; 96361; 96365; 96367; 96375; 99202; 99212; 99213; G0463; J0696

== ENCOUNTER 2021-08-17 16:44 | Emergency (ER) | payer OTHER, SELFPAY ==
[2021-08-17 17:10] VITALS: BP 113/65; PULSE 81; RESP 17; TEMP 37.1; O2SAT 99; BMI 30.2
--- NOTE | 2021-08-17 17:24 | HMH.EDUTC ---
[facility] [place] Clinical Impression: Acute bronchitis Qualifiers: Bronchitis organism: unspecified organism Qualified Code(s): J20.9 - Acute bronchitis, unspecified Disposition: Home, Self-Care Condition on Discharge: Good Instructions: DI for Acute Bronchitis Additional Instructions: Start antibiotic today. Be sure to complete entire prescription even if feeling better Tylenol and ibuprofen as needed for pain or fever Humidifier/vaporizer/hot steamy shower Follow-up with primary care tomorrow. Follow-up immediately in the ER of the [facility] for new or worsening symptoms or no noticeable improvement over the next 48-72 hours. Stop smoking Inhaler every 4-6 hours as needed. Should help open airways improved cough, wheezing, shortness of breath Marilu Hammond will not cause drowsiness to use at bedtime to help stop cough so that she can get some sleep Start steroids today. Helps with inflammation therefore coughing and wheezing. Follow directions on package. Prescriptions: predniSONE [Prednisone 20mg Tab] 20 mg PO BID #10 tab Transmission Status: Pending to [facility] Azithromycin [Zithromax 250mg tab] 250 mg PO DIRECTED #6 tab Transmission Status: Pending to [facility] Referrals: Rohan Lam MD [Primary Care Provider] - Forms: Work/School Release Time of Disposition: 17:28 Medical Decision Making - Chaparro Inquiry Pt receiving controlled substance: No [facility] [place] - General Chief complaint: [facility] Stated complaint: HAD COVID 07/24 COUGH,sob BODY PAIN Time Seen by Provider: 08/17/21 17:24 Mode of Arrival: Ambulatory Source of Information: Patient Limitations: No Limitations - History of Present Illness Provider Complaint: 51 yr old male presents for body aches,weakness, and coughing up dark sputum. had covid 210 - Related Data Home Medications Medication Instructions Recorded Confirmed Aspirin 81 mg PO DAILY 10/19/17 12/30/20 Atorvastatin Calcium [Lipitor 80mg 80 mg PO DAILY 10/19/17 12/30/20 Tab] Isosorbide Mononitrate [Isosorbide 30 mg PO DAILY 10/19/17 12/30/20 Mononitrate ER] carvediloL [Coreg 25mg Tablet] 25 mg PO BID 10/19/17 12/30/20 omeprazole 20 mg capsule,delayed 20 mg PO DAILY cap 07/11/19 12/30/20 release Previous Rx's Medication Instructions Recorded Irbesartan 150 mg PO DAILY #21 tab 12/30/20 Ondansetron [Zofran 4mg ODT] 4 mg PO Q8HP PRN #20 tab.rapdis 01/21/21 Amoxicillin/Potassium Clav 1 tab PO Q12H 7 Days #14 tab 07/23/21 [Augmentin 875-125 Tablet] Benzonatate [Benzonatate 100mg 100 mg PO Q8HP PRN #15 cap 07/23/21 cap] predniSONE [Deltasone 10mg tablet] 10 mg PO BID 5 Days #10 tab 07/23/21 Ondansetron [Zofran 4mg ODT] 4 mg PO Q8HP PRN #20 tab 08/04/21 methylPREDNISolone [Medrol] 4 mg PO DIRECTED 6 Days #21 08/04/21 packet Azithromycin [Zithromax 250mg 250 mg PO DIRECTED #6 tab 08/17/21 tab] predniSONE [Prednisone 20mg 20 mg PO BID #10 tab 08/17/21 Tab] Allergies Allergy/AdvReac Type Severity Reaction Status Date / Time lisinopril Allergy Verified 02/27/20 03:25 [facility] History - Hepatitis A Screen Attestation statement:: This patient has been screened for Hepatitis A risk factors. I have reviewed the patient's past medical history: Yes Medical History: Reports:: Hiatal Hernia, Hyperlipidemia, Hypertension, Kidney Stones, Myocardial Infarction, Renal Disease Denies:: Cancer, Diabetes Mellitus Type 1, Diabetes Mellitus Type 2, MRSA Other Medical History: Reports: Sinus Problems Comment: HEART ATTACK---2017. HBP. KIDNEY STONES Other Surgeries: Yes: Angiogram, Cardiac Catheterization, Hernia Repair Amputation: No Fractures: No Comment: STOMACH HERNIA REPAIR - Social History Smoking Status: Current every day smoker Tobacco Type: cigarettes # Packs/Day (cigarettes): 1 Alcohol Intake: never Alcohol Intake Frequency:: other Substance Use Type: denies u
[2021-08-17 17:30] VITALS: BP 113/65; PULSE 81; RESP 17; TEMP 37.1; O2SAT 99
== END 2021-08-17 17:35 | disposition home or self-care (01) ==
PROVIDERS: Emergency Provider Nurse Practitioner Family; PCP Family Medicine
DX: J20.9 Acute bronchitis, unspecified (principal); R10.84 Generalized abdominal pain; R53.1 Weakness; R53.82 Chronic fatigue, unspecified; Z86.16 Personal history of COVID-19; I10 Essential (primary) hypertension; N28.9 Disorder of kidney and ureter, unspecified; E78.5 Hyperlipidemia, unspecified; I25.2 Old myocardial infarction; L98.8 Other specified disorders of the skin and subcutaneous tissue; K44.9 Diaphragmatic hernia without obstruction or gangrene; F17.210 Nicotine dependence, cigarettes, uncomplicated; Z79.52 Long term (current) use of systemic steroids; Z79.82 Long term (current) use of aspirin; Z79.899 Other long term (current) drug therapy; Z88.8 Allergy status to other drugs, medicaments and biological substances; Z82.49 Family history of ischemic heart disease and other diseases of the circulatory system; Z83.3 Family history of diabetes mellitus; Z83.438 Family history of other disorder of lipoprotein metabolism and other lipidemia
CPT/HCPCS: 99213; G0463

== ENCOUNTER → 2021-08-25 10:44 | Outpatient (CLI) | payer OTHER, SELFPAY ==
--- NOTE | 2021-08-25 10:46 | XR_ITS ---
FINAL REPORT CLINICAL HISTORY: COVID OUTPATIENT COMPARISON: August 04, 2021 FINDINGS: SINGLE VIEW CHEST. The heart is normal in size. The mediastinum is unremarkable. The lungs are clear. There is no pneumothorax. IMPRESSION: No acute process. Reviewed, Interpreted and Dictated by Heraclio Warren III, MD Transcribed by Tomeka Tariq Authenticated by Heraclio Warren III, MD on 08/25/2021 11:14:00 AM [facility]
[2021-08-25 11:07] LABS: Basophils # 0.1 K/mm3 (0-0.2); Basophils % 0.9 % (0.1-2.0); Eosinophils # 0.2 K/mm3 (0.0-0.4); Eosinophils % 1.8 % (0.1-12.0); Hematocrit 49.1 % (42.0-52.0); Hemoglobin 15.5 g/dL (14.1-18.0); Lymphocytes # 3.4 K/mm3 (0.7-4.5); Lymphocytes % 25.6 % (10-50); Mean Corpuscular HGB Conc 31.6 g/dL (31.8-35.4); Mean Corpuscular Hemoglobin 31.3 pg (27.0-31.2); Monocytes # 0.9 K/mm3 (0.1-1.0); Monocytes % 7.2 % (1.7-9.3); Neutrophils # 8.5 K/mm3 (1.8-7.8); Neutrophils % 64.5 % (37.0-80.0); Platelet Count 414 K/mm3 (142-424); Red Blood Count 4.96 M/mm3 (4.60-6.20); Red Cell Distribution Width 16.7 % (11.5-17.5); White Blood Count 13.2 K/mm3 (4.8-10.8)
== END ==
LOC: COVID.OUT 10:44
PROVIDERS: PCP Family Medicine; Visit Provider Nurse Practitioner Family
DX: Z20.822 Contact with and (suspected) exposure to COVID-19 (principal)
CPT/HCPCS: 36415; 71045; 85025

== ENCOUNTER → 2021-12-20 09:31 | Outpatient (CLI) | payer OTHER, SELFPAY ==
[2021-12-20 09:38] LABS: Microscopic, Urine URINE MICROSCOPIC (MICROSCOPIC)
[2021-12-20 10:08] LABS: Basophils # 0.1 K/mm3 (0-0.2); Basophils % 1.2 % (0.1-2.0); Eosinophils # 0.5 K/mm3 (0.0-0.4); Eosinophils % 4.5 % (0.1-12.0); Hematocrit 45.6 % (42.0-52.0); Hemoglobin 15.6 g/dL (14.1-18.0); Lymphocytes # 1.8 K/mm3 (0.7-4.5); Lymphocytes % 16.3 % (10-50); Mean Corpuscular HGB Conc 34.2 g/dL (31.8-35.4); Mean Corpuscular Hemoglobin 29.7 pg (27.0-31.2); Mean Corpuscular Volume 86.8 fl (80-94); Mean Platelet Volume 7.6 fl (7.4-10.4); Monocytes # 0.9 K/mm3 (0.1-1.0); Monocytes % 8.3 % (1.7-9.3); Neutrophils # 7.8 K/mm3 (1.8-7.8); Neutrophils % 69.6 % (37.0-80.0); Platelet Count 357 K/mm3 (142-424); Red Blood Count 5.26 M/mm3 (4.60-6.20); Red Cell Distribution Width 14.6 % (11.5-17.5); White Blood Count 11.1 K/mm3 (4.8-10.8)
[2021-12-20 11:16] LABS: Albumin Level 3.6 g/dl (3.5-5.0); Anion Gap 11.2 mEq/L (5-15); Blood Urea Nitrogen 9 mg/dl (9-20); Calcium 9.2 mg/dl (8.4-10.2); Carbon Dioxide 25 mmol/L (22.0-30.0); Chloride 104 mmol/L (98-107); Estimated Glomerular Filt Rate 54 ml/min (>60); GFR (African American) 65 ML/MIN (>60); Glucose 134 mg/dl (74-100); Phosphorous 3.3 mg/dl (2.5-4.5); Potassium 4.2 mmoL/L (3.5-5.1); Sodium 136 mmol/L (136-145)
[2021-12-20 11:28] LABS: Intact Parathyroid Hormone 51.9 pg/mL (7.5-53.5)
[2021-12-20 11:32] LABS: Appearance,Urine CLEAR (Clear); Bilirubin,Urine Negative (Negative); Blood, Urine 2+ (Negative); Color,Urine YELLOW (Yellow); Glucose,Urine (UA) Negative (Negative); Ketones,Urine Negative (Negative); Leukocyte Esterase,Urine Negative (Negative); Nitrate,Urine Negative (Negative); Protein,Urine Negative (Negative); Specific Gravity, Urine <= 1.005 (1.005-1.030); Urobilinogen,Urine 0.2 EU/dl (0.2)
[2021-12-20 11:39] LABS: Creatinine,Urine Random 73 mg/dL (Not Estab.)
[2021-12-20 12:11] LABS: Bacteria,Urine Trace /lpf
== END ==
LOC: LAB 09:33
PROVIDERS: PCP Family Medicine; Visit Provider Internal Medicine Nephrology
DX: N18.30 Chronic kidney disease, stage 3 unspecified (principal); E55.9 Vitamin D deficiency, unspecified
CPT/HCPCS: 36415; 80069; 81001; 82306; 82570; 83970; 84155; 85025

== ENCOUNTER 2021-12-23 08:50 | Emergency (ER) | payer OTHER, SELFPAY ==
[2021-12-23 09:09] VITALS: BP 149/81; PULSE 68; RESP 17; TEMP 36.7; O2SAT 95; BMI 28.5
--- NOTE | 2021-12-23 09:13 | HMH.EDUTC ---
[facility] [place] Clinical Impression: Musculoskeletal back pain Thoracic back pain Qualifiers: Chronicity: acute Back pain laterality: bilateral Qualified Code(s): M54.6 - Pain in thoracic spine Low back pain Qualifiers: Chronicity: acute Back pain laterality: bilateral Sciatica presence: without sciatica Qualified Code(s): M54.50 - Low back pain, unspecified Disposition: Home, Self-Care Condition on Discharge: Good Instructions: Cyclobenzaprine, DI for Back Strain or Sprain, DI for Thoracic Back Pain, Thoracic Back Pain Additional Instructions: Go home and rest. It would be best if you rested tomorrow too. No heavy lifting. No twisting. Take the oral medications as directed. The muscle relaxer (cyclobenzaprine--Flexeril) will make you drowsy, so don't drive or operate heavy machinery after taking it. Don't start the oral steroids (medrol dose pack) until tomorrow, since you had the shots in here today. Follow up with your regular doctor. GO TO THE ER FOR ANY WORSENING SYMPTOMS OR CONCERN, ESPECIALLY BOWEL OR BLADDER ISSUES, SADDLE AREA NUMBNESS, FEVER, ETC Prescriptions: Cyclobenzaprine HCl [Cyclobenzaprine 10mg Tab] 10 mg PO BIDP PRN #20 tab PRN Reason: Muscle Spasm Transmission Status: Received by [facility] methylPREDNISolone [Medrol] 4 mg PO DIRECTED 6 Days #21 packet Transmission Status: Received by [facility] Referrals: Rohan Lam MD [Primary Care Provider] - Forms: Work/School Release Time of Disposition: 09:27 Medical Decision Making - Medical Records Medical records reviewed: No: I reviewed the patient's medical records. - Chaparro Inquiry Pt receiving controlled substance: No Vital Signs: 12/23/21 09:09 12/23/21 09:44 Temperature 98.1 F 98.1 F Temperature Source Oral Pulse Rate 68 Pulse Rate [Left] 68 Respiratory Rate 17 17 Blood Pressure 149/81 H Blood Pressure [Right Arm] 149/81 H Blood Pressure Mean [Right Arm] 103 02 Sat by Pulse Oximetry 95 - Lab Data Lab results reviewed: Yes: I reviewed the patient's lab results. Orders (Tests/Meds): ED MEDICATIONS Discontinued Medications Generic Name Dose Route Start Last Admin Trade Name Freq PRN Reason Stop Dose Admin Ketorolac Tromethamine 60 mg 12/23/21 09:20 12/23/21 09:34 Ketorolac 60mg/2ml Vial IM 12/23/21 09:21 60 mg ONCE ONE Administration Methylprednisolone Sodium Succinate 125 mg 12/23/21 09:20 12/23/21 09:34 Methylprednisolone Sod Succ 125mg Vial IM 12/23/21 09:21 125 mg ONCE ONE Administration [facility] [place] - General Stated complaint: AO 12/20 back pain Time Seen by Provider: 12/23/21 09:13 - History of Present Illness Provider Complaint: He states that for the past 2 days he has had middle and low back pain. His symptoms began after he did some heavy lifting and the pressure washed his house. - Related Data Home Medications Medication Instructions Recorded Confirmed Aspirin 81 mg PO DAILY 10/19/17 12/30/20 Atorvastatin Calcium [Lipitor 80mg 80 mg PO DAILY 10/19/17 12/30/20 Tab] Isosorbide Mononitrate [Isosorbide 30 mg PO DAILY 10/19/17 12/30/20 Mononitrate ER] carvediloL [Coreg 25mg Tablet] 25 mg PO BID 10/19/17 12/30/20 omeprazole 20 mg capsule,delayed 20 mg PO DAILY cap 07/11/19 12/30/20 release Previous Rx's Medication Instructions Recorded Irbesartan 150 mg PO DAILY #21 tab 12/30/20 Ondansetron [Zofran 4mg ODT] 4 mg PO Q8HP PRN #20 tab.rapdis 01/21/21 Amoxicillin/Potassium Clav 1 tab PO Q12H 7 Days #14 tab 07/23/21 [Augmentin 875-125 Tablet] Benzonatate [Benzonatate 100mg 100 mg PO Q8HP PRN #15 cap 07/23/21 cap] predniSONE [Deltasone 10mg tablet] 10 mg PO BID 5 Days #10 tab 07/23/21 Ondansetron [Zofran 4mg ODT] 4 mg PO Q8HP PRN #20 tab 08/04/21 methylPREDNISolone [Medrol] 4 mg PO DIRECTED 6 Days #21 08/04/21 packet Azithromycin [Zithromax 250mg 250 mg PO DIRECTED #6
[2021-12-23 09:44] VITALS: BP 149/81; PULSE 68; RESP 17; TEMP 36.7
== END 2021-12-23 09:46 | disposition home or self-care (01) ==
PROVIDERS: Emergency Provider Nurse Practitioner Family; PCP Family Medicine
DX: M54.6 Pain in thoracic spine (principal); M54.50 Low back pain, unspecified; N28.9 Disorder of kidney and ureter, unspecified; I25.2 Old myocardial infarction; E78.5 Hyperlipidemia, unspecified; K44.9 Diaphragmatic hernia without obstruction or gangrene; Z79.52 Long term (current) use of systemic steroids; Z79.899 Other long term (current) drug therapy; Z79.82 Long term (current) use of aspirin; Z87.442 Personal history of urinary calculi; Z82.49 Family history of ischemic heart disease and other diseases of the circulatory system; Z88.8 Allergy status to other drugs, medicaments and biological substances; Z83.3 Family history of diabetes mellitus; Z83.438 Family history of other disorder of lipoprotein metabolism and other lipidemia
CPT/HCPCS: 96372; 99213; G0463

== ENCOUNTER 2021-12-28 16:54 | Emergency (ER) | payer OTHER, SELFPAY ==
[2021-12-28 16:55] VITALS: BP 116/73; PULSE 72; RESP 20; TEMP 36.7; O2SAT 97; BMI 30.7
[2021-12-28 17:11] VITALS: BMI 28.5
[2021-12-28 17:15] LABS: Microscopic, Urine URINE MICROSCOPIC (MICROSCOPIC)
[2021-12-28 17:29] LABS: Appearance,Urine CLEAR (Clear); Bilirubin,Urine Negative (Negative); Blood, Urine 2+ (Negative); Color,Urine YELLOW (Yellow); Glucose,Urine (UA) Negative (Negative); Ketones,Urine Negative (Negative); Leukocyte Esterase,Urine Negative (Negative); Nitrate,Urine Negative (Negative); Protein,Urine Negative (Negative); Specific Gravity, Urine 1.025 (1.005-1.030)
[2021-12-28 17:30] VITALS: BP 130/85; PULSE 67; RESP 18
--- NOTE | 2021-12-28 17:48 | CT_ITS ---
PROCEDURE INFORMATION: Exam: CT Abdomen And Pelvis Without Contrast Exam date and time: 12/28/2021 5:52 PM Age: 51 years old Clinical indication: Abdominal pain; Flank; Left lower quadrant (llq); Additional info: R/O stone- TECHNIQUE: Imaging protocol: Computed tomography of the abdomen and pelvis without contrast. Radiation optimization: All CT scans at this facility use at least one of these dose optimization techniques: automated exposure control; mA and/or kV adjustment per patient size (includes targeted exams where dose is matched to clinical indication); or iterative reconstruction. COMPARISON: CT ABDOMEN PELVIS WO CON 05/08/2019 2:51 PM FINDINGS: Heart: Coronary artery calcifications. Liver: Low attenuation hepatic lesions measuring up to 6 mm in diameter are incompletely characterized, but are likely cysts. No followup imaging is recommended. Gallbladder and bile ducts: Normal. No calcified stones. No ductal dilation. Pancreas: Normal. No ductal dilation. Spleen: Normal. No splenomegaly. Adrenal glands: Normal. No mass. Kidneys and ureters: The left kidney is markedly atrophied, worse compared to prior study. Nonobstructing bilateral nephrolithiasis. Stomach and bowel: Moderate sigmoid diverticulosis with subtle surrounding edema example image 88 series 8. Duodenal diverticula. Appendix: Unremarkable appendix. Intraperitoneal space: Unremarkable. No free air. No significant fluid collection. Vasculature: The arteries demonstrate moderate atherosclerotic disease. Left renal arterial stent is noted. Lymph nodes: Unremarkable. No enlarged lymph nodes. Urinary bladder: Nonspecific mild urinary bladder wall thickening. Reproductive: Mild prostate enlargement. Bones/joints: Unremarkable. No acute fracture. Soft tissues: Unremarkable. Other findings: Stigmata of old granulomatous disease. IMPRESSION: 1. Moderate sigmoid diverticulosis with subtle surrounding edema example image 88 series 8. Acute diverticulitis without abscess is most likely. 2. Nonspecific mild urinary bladder wall thickening. Please exclude infection. 3. Nonobstructing bilateral nephrolithiasis.
--- NOTE | 2021-12-28 17:53 | PC.NURSE ---
PT GOING TO CT VIA W/C
[2021-12-28 17:54] LABS: WBC,Urine Occasional #/hpf (0-3)
[2021-12-28 18:05] LABS: Basophils # 0.2 K/mm3 (0-0.2); Eosinophils # 0.6 K/mm3 (0.0-0.4); Eosinophils % 4.3 % (0.1-12.0); Hematocrit 46.1 % (42.0-52.0); Hemoglobin 15.3 g/dL (14.1-18.0); Lymphocytes # 2.9 K/mm3 (0.7-4.5); Lymphocytes % 19.9 % (10-50); Mean Corpuscular HGB Conc 33.1 g/dL (31.8-35.4); Mean Corpuscular Volume 87.6 fl (80-94); Mean Platelet Volume 7.3 fl (7.4-10.4); Monocytes # 1.1 K/mm3 (0.1-1.0); Monocytes % 7.4 % (1.7-9.3); Neutrophils # 9.9 K/mm3 (1.8-7.8); Neutrophils % 67.4 % (37.0-80.0); Platelet Count 378 K/mm3 (142-424); Red Blood Count 5.27 M/mm3 (4.60-6.20); Red Cell Distribution Width 14.5 % (11.5-17.5); White Blood Count 14.7 K/mm3 (4.8-10.8)
--- NOTE | 2021-12-28 18:05 | PC.NURSE ---
Pt returned from rad
--- NOTE | 2021-12-28 18:05 | PC.NURSE ---
PT BACK FROM CT
[2021-12-28 18:13] LABS: Alanine Aminotransferase 17 U/L (12-78); Albumin Level 3.4 g/dl (3.5-5.0); Albumin/Globulin Ratio 1.4 (1.1-1.8); Alkaline Phosphatase 122 U/L (38-126); Anion Gap 8.6 mEq/L (5-15); Aspartate Amino Transferase 28 U/L (17-59); Bilirubin,Total 0.3 mg/dl (0.2-1.3); Blood Urea Nitrogen 17 mg/dl (9-20); Calcium 8.7 mg/dl (8.4-10.2); Carbon Dioxide 27 mmol/L (22.0-30.0); Chloride 102 mmol/L (98-107); Creatinine Clearance Estimated 84 mL/min (50-200); Estimated Glomerular Filt Rate 54 ml/min (>60); GFR (African American) 65 ML/MIN (>60); Globulin 2.4 g/dL (1.3-3.2); Glucose 106 mg/dl (74-100); Potassium 3.6 mmoL/L (3.5-5.1); Sodium 134 mmol/L (136-145); Total Protein,Serum 5.8 g/dl (6.3-8.2)
--- NOTE | 2021-12-28 18:27 | HMH.EDGENADL ---
ED Disposition Clinical Impression: Diverticulitis Disposition: Home, Self-Care Condition on Discharge: Good Instructions: Diverticulitis, DI for Diverticulitis Additional Instructions: Off work until January 05. Return for fever or worsening abdominal pain or other concerns. Prescriptions: Ciprofloxacin HCl [Cipro 500mg Tab] 500 mg PO BID 10 Days #20 tab Transmission Status: Pending to [facility] metroNIDAZOLE [Flagyl] 500 mg PO TID 10 Days #30 cap Transmission Status: Pending to [facility] Hydrocodone/Acetaminophen [Hydrocodone-Acetamin 7.5-325] 1 tab PO Q6 PRN #12 tab PRN Reason: diverticulitis Transmission Status: Sent to [facility] Ondansetron [Zofran 4mg ODT] 4 mg PO TIDP PRN 6 Days #20 tab PRN Reason: Nausea And Vomiting Transmission Status: Pending to [facility] Referrals: Rohan Lam MD [Primary Care Provider] - - Critical Care Critical Care Time: No Attestation: On 12/28/21, the high probability of a clinically significant, sudden or life threatening deterioration of the following system(s) required my full and direct attention, intervention and personal management. The time I documented below is in addition to time spent performing reported procedures but includes the following listed in this critical care notation. Medical Decision Making - Medical Records Medical records reviewed: Yes: I reviewed the patient's medical records. - Chaparro Inquiry Pt receiving controlled substance: No Chaparro was queried for this patient: No Vital Signs: 12/28/21 16:55 12/28/21 17:30 12/28/21 18:30 Temperature 98.1 F Temperature Source Oral Pulse Rate 67 62 Pulse Rate [Radial] 72 Respiratory Rate 20 18 18 Blood Pressure 130/85 129/85 Blood Pressure [Right Arm] 116/73 Blood Pressure Mean 100 100 Blood Pressure Mean [Right Arm] 87 Blood Pressure Position [Right Arm] Sitting 02 Sat by Pulse Oximetry 97 98 Oxygen Delivery Method Room Air 12/28/21 19:00 Temperature Temperature Source Pulse Rate 60 Pulse Rate [Radial] Respiratory Rate 18 Blood Pressure 122/79 Blood Pressure [Right Arm] Blood Pressure Mean 90 Blood Pressure Mean [Right Arm] Blood Pressure Position [Right Arm] 02 Sat by Pulse Oximetry Oxygen Delivery Method - Lab Data Lab results reviewed: Yes: I reviewed the patient's lab results. Lab Results 12/28/21 17:05: Urine Color Yellow, Urine Appearance Clear, Urine pH 6.0, Ur Specific [place] 1.025, Urine Protein Negative, Urine Glucose (UA) Negative, Urine Ketones Negative, Urine Blood 2+, Urine Nitrate Negative, Urine Bilirubin Negative, Urine Urobilinogen 1.0, Ur Leukocyte Esterase Negative, Urine RBC None, Urine WBC Occasional, Ur Squamous Epith Cells 3-5, Urine Bacteria None 12/28/21 17:55: WBC 14.7 H, RBC 5.27, Hgb 15.3, Hct 46.1, MCV 87.6, MCH 29.0, MCHC 33.1, RDW 14.5, Plt Count 378, MPV 7.3 L, Neut % (Auto) 67.4, Lymph % (Auto) 19.9, [place] % (Auto) 7.4, Eos % (Auto) 4.3, Baso % (Auto) 1.0, Neut # (Auto) 9.9 H, Lymph # (Auto) 2.9, [place] # (Auto) 1.1 H, Eos # (Auto) 0.6 H, Baso # (Auto) 0.2 12/28/21 17:55: Sodium 134 L, Potassium 3.6, Chloride 102, Carbon Dioxide 27, Anion Gap 8.6, BUN 17, Creatinine 1.40 H, Estimated Creat Clear 84, Estimated GFR 54 L, Est GFR ( Amer) 65, Glucose 106 H, Calcium 8.7, Total Bilirubin 0.3, AST 28, ALT 17, Alkaline Phosphatase 122, Total Protein 5.8 L, Albumin 3.4 L, Globulin 2.4, Albumin/Globulin Ratio 1.4 Result diagrams: 12/28/21 17:55 12/28/21 17:55 Orders (Tests/Meds): ED MEDICATIONS Discontinued Medications Generic Name Dose Route Start Last Admin Trade Name Melissa PRN Reason Stop Dose Admin Levofloxacin 750 mg 12/28/21 19:15 12/28/21 19:20 Levofloxacin 750 Mg Tablet PO 12/28/21 19:16 750 mg ONCE ONE Administration Metronidazole 500 mg 12/28/21 19:16 12/28/21 19:20 Metronidazole 500 Mg Tablet PO 12/28/21 19:17 500 mg ONCE ONE Ad
[2021-12-28 18:30] VITALS: BP 129/85; PULSE 62; RESP 18; O2SAT 98
--- NOTE | 2021-12-28 18:52 | PC.NURSE ---
pt and updated on plan of care
[2021-12-28 19:00] VITALS: BP 122/79; PULSE 60; RESP 18
[2021-12-28 19:33] VITALS: BP 147/70; PULSE 66; RESP 18; TEMP 36.9; O2SAT 97
== END 2021-12-28 19:45 | disposition home or self-care (01) ==
PROVIDERS: Emergency Provider Emergency Medicine; PCP Family Medicine
DX: K57.32 Diverticulitis of large intestine without perforation or abscess without bleeding (principal); Z79.82 Long term (current) use of aspirin; Z79.899 Other long term (current) drug therapy; Z88.8 Allergy status to other drugs, medicaments and biological substances; E78.5 Hyperlipidemia, unspecified; I10 Essential (primary) hypertension; I25.2 Old myocardial infarction; N28.9 Disorder of kidney and ureter, unspecified; Z87.442 Personal history of urinary calculi; Z72.0 Tobacco use
CPT/HCPCS: 74176; 80053; 81001; 85025; 99284

== ENCOUNTER 2022-12-07 17:44 | Emergency (ER) | payer OTHER, SELFPAY ==
[2022-12-07 17:46] VITALS: BP 108/63; PULSE 83; RESP 16; TEMP 36.8; O2SAT 98; BMI 28.5
--- NOTE | 2022-12-07 18:05 | EXP.UTC ---
Discharge Plan Disposition Patient Disposition: Home, Self-Care Condition: Good Prescriptions Prescriptions: New ciprofloxacin HCl 0.3 % drops See Rx Instructions .ROUTE .COMPLEX Qty: 5 0RF Rx Instructions: put 1 drp in both eyes every 2hr x2days; then 4 times/day x5days No Action omeprazole 20 mg capsule,delayed release(DR/EC) 20 mg PO DAILY atorvastatin 80 MG tablet 80 mg PO DAILY carvedilol 25 MG tablet 25 mg PO BID isosorbide mononitrate 120 MG tablet extended release 24 hr 30 mg PO DAILY Rx Instructions: PT SAYS TOLD HIM TO TAKE 1/2 TABLET DAILY aspirin 81 MG tablet,chewable 81 mg PO DAILY irbesartan 150 MG tablet 150 mg PO DAILY Qty: 21 0RF prednisone 10 MG tablet 10 mg PO BID 5 Days Qty: 10 0RF benzonatate 100 MG capsule 100 mg PO Q8HP PRN (Reason: Cough) Qty: 15 0RF amoxicillin-pot clavulanate 1 EACH tablet 1 tab PO Q12H 7 Days Qty: 14 0RF azithromycin 250 MG tablet 250 mg PO DIRECTED Qty: 6 0RF Rx Instructions: Take two (2) tablets on day #1, then one (1) tablet day #2 thru #5 prednisone 20 MG tablet 20 mg PO BID Qty: 10 0RF ciprofloxacin HCl 500 MG tablet 500 mg PO BID 10 Days Qty: 20 0RF metronidazole 375 MG capsule 500 mg PO TID 10 Days Qty: 30 0RF ondansetron 4 MG tablet,disintegrating 4 mg PO TIDP PRN (Reason: Nausea And Vomiting) 6 Days Qty: 20 0RF hydrocodone-acetaminophen 1 EACH tablet 1 tab PO Q6 PRN (Reason: diverticulitis) Qty: 12 0RF ondansetron 4 MG tablet,disintegrating 4 mg PO Q8HP PRN (Reason: Nausea) Qty: 20 0RF methylprednisolone 4 MG tablets,dose pack 4 mg PO DIRECTED 6 Days Qty: 21 0RF ondansetron 4 MG tablet,disintegrating 4 mg PO Q8HP PRN (Reason: Nausea) Qty: 20 0RF cyclobenzaprine 10 MG tablet 10 mg PO BIDP PRN (Reason: Muscle Spasm) Qty: 20 0RF methylprednisolone 4 MG tablets,dose pack 4 mg PO DIRECTED 6 Days Qty: 21 0RF Referrals Follow up/Referrals: Rohan Lam MD [Primary Care Provider] - See instructions Activity Restrictions/Add. Instructions Additional Instructions/Restrictions: Use the eye drops as directed. Strict hand washing in the house hold, because conjunctivitis is very contagious. Follow up with your regular doctor. GO TO THE ER FOR ANY WORSENING SYMPTOMS OR CONCERNS Clinical Impressions Clinical Impression: Bilateral conjunctivitis Instructions Patient Instructions: How to Instill Eye Drops, DI for Conjunctivitis Discharge ED Provider: Abdias Harmon [facility] General Stated complaint: BL eye pain Mode of Arrival: Ambulatory Source of Information: Patient Limitations: No Limitations Time Seen by Provider: 12/07/22 18:05 Description of Symptoms (Recalled from Triage Doc. by RN): Patient complaint of bilateral eye redness and pain since Wednesday. HEENT Symptoms (Recalled from RN notes): Yes Resp Symptoms (Recalled from RN notes): No Skin Symptoms (Recalled from RN notes): No MS Symptoms (Recalled from RN notes): No Functional Status (Recalled from RN notes): wnl History of Present Illness Provider Complaint: He c/o bilateral eye matting and redness for the past 2 days. Related Data Home Medications Medication Instructions Recorded Confirmed aspirin 81 mg chewable tablet 81 mg PO DAILY heart 10/19/17 12/30/20 atorvastatin 80 mg tablet 80 mg PO DAILY Cholesterol 10/19/17 12/30/20 carvedilol 25 mg tablet 25 mg PO BID Heart 10/19/17 12/30/20 isosorbide mononitrate 120 mg 30 mg PO DAILY heart 10/19/17 12/30/20 tablet,extended release 24 hr omeprazole 20 mg capsule,delayed 20 mg PO DAILY GERD 07/11/19 12/30/20 release Previous Rx's Medication Instructions Recorded irbesartan 150 mg tablet 150 mg PO DAILY #21 tabs 12/30/20 ondansetron 4 mg disintegrating 4 mg PO Q8HP PRN Nausea ##20 01/21/21 tablet amoxicillin 875 mg-potassium 1 tab PO Q12H 7 days #14 tabs 07/23/21 c
[2022-12-07 18:35] VITALS: BP 108/63; PULSE 83; RESP 16; TEMP 36.8; O2SAT 98
== END 2022-12-07 18:37 | disposition home or self-care (01) ==
PROVIDERS: Emergency Provider Nurse Practitioner Family; PCP Family Medicine
DX: H10.9 Unspecified conjunctivitis (principal); F17.210 Nicotine dependence, cigarettes, uncomplicated
CPT/HCPCS: 99212; 99214; G0463

== ENCOUNTER → 2023-01-12 18:39 | Outpatient (CLI) | payer OTHER, SELFPAY ==
[2023-01-12 19:13] LABS: Microscopic, Urine URINE MICROSCOPIC (MICROSCOPIC)
[2023-01-12 19:19] LABS: Hematocrit 50.6 % (42.0-52.0); Hemoglobin 16.1 g/dL (14.1-18.0); Mean Corpuscular HGB Conc 31.8 g/dL (31.8-35.4); Mean Corpuscular Hemoglobin 30.1 pg (27.0-31.2); Mean Corpuscular Volume 94.6 fl (80-94); Platelet Count 338 K/mm3 (142-424); Red Blood Count 5.35 M/mm3 (4.60-6.20); White Blood Count 10.9 K/mm3 (4.8-10.8)
[2023-01-12 19:29] LABS: Appearance,Urine CLEAR (Clear); Bilirubin,Urine Negative (Negative); Blood, Urine 1+ (Negative); Color,Urine YELLOW (Yellow); Glucose,Urine (UA) Negative (Negative); Ketones,Urine Negative (Negative); Leukocyte Esterase,Urine TRACE (Negative); Nitrate,Urine Negative (Negative); PH,Urine 5.5 (5.0-8.5); Protein,Urine Negative (Negative); Specific Gravity, Urine 1.015 (1.005-1.030); Urobilinogen,Urine 0.2 EU/dl (0.2)
[2023-01-12 20:06] LABS: Anion Gap 11.6 mEq/L (5-15); Blood Urea Nitrogen 18 mg/dl (9-20); Calcium 9.6 mg/dl (8.4-10.2); Carbon Dioxide 26 mmol/L (22.0-30.0); Chloride 101 mmol/L (98-107); Estimated Glomerular Filt Rate 46 ml/min (>60); GFR (African American) 56 ML/MIN (>60); Glucose 143 mg/dl (74-100); Phosphorous 3.6 mg/dl (2.5-4.5); Potassium 4.6 mmoL/L (3.5-5.1); Sodium 134 mmol/L (136-145)
[2023-01-12 20:19] LABS: Intact Parathyroid Hormone 35.1 pg/mL (7.5-53.5)
[2023-01-12 20:24] LABS: 25-OH Vitamin D, Total 19.5 ng/mL (30-100)
[2023-01-12 22:06] LABS: Bacteria,Urine Trace /lpf; WBC,Urine Occasional #/hpf (0-3)
[2023-01-13 03:12] LABS: Creatinine,Urine Random 131 mg/dL (Not Estab.)
== END ==
LOC: LAB 18:44
PROVIDERS: PCP Family Medicine; Visit Provider Internal Medicine Nephrology
DX: N18.31 Chronic kidney disease, stage 3a (principal); E55.9 Vitamin D deficiency, unspecified
CPT/HCPCS: 36415; 80069; 81001; 82306; 82570; 83970; 84155; 85014; 85018; 85048; 85049

== ENCOUNTER 2023-01-30 12:13 | Emergency (ER) | payer OTHER, SELFPAY ==
[2023-01-30] VITALS (9 sets, daily range): BP systolic 163–180; BP diastolic 93–119; PULSE 70–79; RESP 16–20; TEMP 36.7; O2SAT 95–99; BMI 28.4
--- NOTE | 2023-01-30 13:00 | XR_ITS ---
PROCEDURE INFORMATION: Exam: XR Right Elbow Exam date and time: 01/30/2023 1:23 PM Age: 52 years old Clinical indication: Pain; Elbow; Right TECHNIQUE: Imaging protocol: Radiologic exam of the right elbow. Views: 3 or more views. COMPARISON: CR XR ELBOW RT MIN 3V 08/08/2020 10:47 AM FINDINGS: Bones/joints: Small joint effusion noted. An acute fracture is not well seen but suspected. Small olecranon enthesophyte noted Soft tissues: Normal. IMPRESSION: Small joint effusion noted. An acute fracture is not well seen but suspected.
--- NOTE | 2023-01-30 13:21 | HMH.EDGENADL ---
Discharge Plan Disposition Patient Disposition: Home, Self-Care Condition: Good Prescriptions Prescriptions: New oxycodone 5 mg tablet 5 mg PO Q8H PRN (Reason: pain) Qty: 10 0RF No Action omeprazole 20 mg capsule,delayed release(DR/EC) 20 mg PO DAILY atorvastatin 80 MG tablet 80 mg PO DAILY carvedilol 25 MG tablet 25 mg PO BID isosorbide mononitrate 120 MG tablet extended release 24 hr 30 mg PO DAILY Rx Instructions: PT SAYS TOLD HIM TO TAKE 1/2 TABLET DAILY aspirin 81 MG tablet,chewable 81 mg PO DAILY irbesartan 150 MG tablet 150 mg PO DAILY Qty: 21 0RF prednisone 10 MG tablet 10 mg PO BID 5 Days Qty: 10 0RF benzonatate 100 MG capsule 100 mg PO Q8HP PRN (Reason: Cough) Qty: 15 0RF amoxicillin-pot clavulanate 1 EACH tablet 1 tab PO Q12H 7 Days Qty: 14 0RF azithromycin 250 MG tablet 250 mg PO DIRECTED Qty: 6 0RF Rx Instructions: Take two (2) tablets on day #1, then one (1) tablet day #2 thru #5 prednisone 20 MG tablet 20 mg PO BID Qty: 10 0RF ciprofloxacin HCl 500 MG tablet 500 mg PO BID 10 Days Qty: 20 0RF metronidazole 375 MG capsule 500 mg PO TID 10 Days Qty: 30 0RF ondansetron 4 MG tablet,disintegrating 4 mg PO TIDP PRN (Reason: Nausea And Vomiting) 6 Days Qty: 20 0RF hydrocodone-acetaminophen 1 EACH tablet 1 tab PO Q6 PRN (Reason: diverticulitis) Qty: 12 0RF ondansetron 4 MG tablet,disintegrating 4 mg PO Q8HP PRN (Reason: Nausea) Qty: 20 0RF methylprednisolone 4 MG tablets,dose pack 4 mg PO DIRECTED 6 Days Qty: 21 0RF ondansetron 4 MG tablet,disintegrating 4 mg PO Q8HP PRN (Reason: Nausea) Qty: 20 0RF cyclobenzaprine 10 MG tablet 10 mg PO BIDP PRN (Reason: Muscle Spasm) Qty: 20 0RF methylprednisolone 4 MG tablets,dose pack 4 mg PO DIRECTED 6 Days Qty: 21 0RF ciprofloxacin HCl 0.3 % drops See Rx Instructions .ROUTE .COMPLEX Qty: 5 0RF Rx Instructions: put 1 drp in both eyes every 2hr x2days; then 4 times/day x5days Referrals Follow up/Referrals: Rohan Lam MD [Primary Care Provider] - See instructions Alexis Freeman JR, MD [Physician] - See instructions Activity Restrictions/Add. Instructions Additional Instructions/Restrictions: You were evaluated in the emergency department today. At this time, your x-rays show fluid in the joint that is concerning for possible fracture. Please follow-up outpatient with orthopedics soon as possible. We are providing you with information for Dr. Freeman. Return to the emergency department for new or worsening symptoms, such as significant increase in pain, new numbness tingling, fevers, or other concerns. group account director your prescription for pain medication at the pharmacy and take as needed for severe pain. You may also take Tylenol and ibuprofen. Do not drive or operate heavy machinery while in the splint. Do not drive or operate heavy machinery while taking pain medication. Clinical Impressions Clinical Impression: Effusion of elbow joint, right Stand Alone Forms Stand Alone Forms: Work/School Release Instructions Patient Instructions: DI for Elbow Fracture, How to Take Care of Your Splint Discharge ED Provider: Keena Gilman General Adult HPI General Chief complaint: Extremity Problem,Nontraumatic Stated complaint: right arm pain, no accident Time Seen by Provider: 01/30/23 12:33 Mode of Arrival: Ambulatory Source of Information: Patient Limitations: No Limitations Description of Symptoms (Recalled from ER Triage Doc. by RN): pt to ed c/o his right arm locked up. pt states he was sitting on the couch watching tv and when he stood up he couldn't extend his arm. pt denies any injury. History of Present Illness HPI narrative: This patient is a 52-year-old male with a history of chronic elbow pain and spasm, hypertension, and hyperlipidemia presenting to the emergency department for evaluation with
--- NOTE | 2023-01-30 14:12 | PC.NURSE ---
nata at bs splinting pt nothing needed
--- NOTE | 2023-01-30 14:20 | PC.NURSE ---
Ortho-glass splint applied to right upper extremity without complications. Pt tolerated well. Education provided on how to care for splint until follow up with Orthopaedics.
== END 2023-01-30 14:40 | disposition home or self-care (01) ==
PROVIDERS: Emergency Provider Emergency Medicine; PCP Family Medicine
DX: M25.421 Effusion, right elbow (principal); M19.021 Primary osteoarthritis, right elbow; I10 Essential (primary) hypertension; E78.5 Hyperlipidemia, unspecified
CPT/HCPCS: 73080; 99283

== ENCOUNTER → 2023-02-26 15:47 | Outpatient (CLI) | payer OTHER, SELFPAY ==
--- NOTE | 2023-02-26 16:20 | MR_ITS ---
PROCEDURE INFORMATION: Exam: MR Right Upper Extremity Joint Without Contrast; Elbow Exam date and time: 02/26/2023 4:19 PM Age: 52 years old Clinical indication: Pain; Patient HX: Tender on anterior and posterior of right elbow , any pressure to posterior surface hurts per patient; Additional info: RT elbow pain TECHNIQUE: Imaging protocol: Magnetic resonance imaging of the right upper extremity without contrast. Exam focused on the elbow. COMPARISON: CR XR ELBOW RT MIN 3V 01/30/2023 1:23 PM FINDINGS: Bones/joints: Mild ulnar humeral joint arthrosis with small joint effusion. Normal marrow signal. No fracture. Anatomic alignment. Ulnar (medial) collateral ligament: Unremarkable. No tear. Radial collateral ligament of the elbow: Unremarkable. No tear. Annular ligament of the radius: Unremarkable. No tear. Tendon of the biceps brachii: Unremarkable. No tear. Tendon of the brachialis: Unremarkable. No tear. Triceps tendon: There is insertional tendinosis of the triceps with suspected partial-thickness tearing and small enthesophyte. There is a apparent laxity of the distal tendon which may be related to position. Common flexor tendon: Unremarkable. No tear. Common extensor tendon: Unremarkable. No tear. Soft tissues: There is minimal subcutaneous soft tissue edema posterior to the elbow. IMPRESSION: 1. Mild ulnar humeral joint arthrosis with small joint effusion. 2. Insertional triceps tendinosis with suspected partial-thickness tearing.
== END ==
LOC: RAD 15:48
PROVIDERS: PCP Family Medicine; Visit Provider Orthopaedic Surgery
DX: M25.521 Pain in right elbow (principal)
CPT/HCPCS: 73221

== ENCOUNTER → 2023-05-24 14:20 | Outpatient (CLI) | payer OTHER, SELFPAY ==
[2023-05-24 14:25] LABS: Microscopic, Urine URINE MICROSCOPIC (MICROSCOPIC)
[2023-05-24 14:55] LABS: Basophils # 0.1 K/mm3 (0-0.2); Basophils % 0.8 % (0.1-2.0); Eosinophils # 0.6 K/mm3 (0.0-0.4); Hematocrit 50.6 % (42.0-52.0); Hemoglobin 17.2 g/dL (14.1-18.0); Lymphocytes # 2.3 K/mm3 (0.7-4.5); Lymphocytes % 19.4 % (10-50); Mean Corpuscular Hemoglobin 30.7 pg (27.0-31.2); Mean Corpuscular Volume 90.4 fl (80-94); Mean Platelet Volume 8.1 fl (7.4-10.4); Monocytes # 0.9 K/mm3 (0.1-1.0); Monocytes % 7.9 % (1.7-9.3); Neutrophils # 7.8 K/mm3 (1.8-7.8); Platelet Count 301 K/mm3 (142-424); Red Blood Count 5.59 M/mm3 (4.60-6.20); Red Cell Distribution Width 15.6 % (11.5-17.5); White Blood Count 11.7 K/mm3 (4.8-10.8)
[2023-05-24 15:18] LABS: Appearance,Urine CLEAR (Clear); Bilirubin,Urine Negative (Negative); Blood, Urine 3+ (Negative); Color,Urine YELLOW (Yellow); Glucose,Urine (UA) Negative (Negative); Ketones,Urine Negative (Negative); Leukocyte Esterase,Urine Negative (Negative); Nitrate,Urine Negative (Negative); Protein,Urine TRACE (Negative); Specific Gravity, Urine >= 1.030 (1.005-1.030); Urobilinogen,Urine 0.2 EU/dl (0.2)
[2023-05-24 15:23] LABS: Alanine Aminotransferase 16 U/L (12-78); Albumin Level 3.9 g/dl (3.5-5.0); Albumin/Globulin Ratio 1.6 (1.1-1.8); Alkaline Phosphatase 133 U/L (38-126); Anion Gap 9.1 mEq/L (5-15); Aspartate Amino Transferase 26 U/L (17-59); Bilirubin,Total 0.6 mg/dl (0.2-1.3); Blood Urea Nitrogen 13 mg/dl (9-20); Calcium 8.9 mg/dl (8.4-10.2); Carbon Dioxide 28 mmol/L (22.0-30.0); Chloride 101 mmol/L (98-107); Estimated Glomerular Filt Rate 46 ml/min (>60); GFR (African American) 56 ML/MIN (>60); Globulin 2.5 g/dL (1.3-3.2); Glucose 105 mg/dl (74-100); Potassium 4.1 mmoL/L (3.5-5.1); Sodium 134 mmol/L (136-145); Total Protein,Serum 6.4 g/dl (6.3-8.2)
[2023-05-24 15:37] LABS: Bacteria,Urine Trace /lpf; WBC,Urine Occasional #/hpf (0-3)
[2023-05-25 08:17] LABS: PSA, Free 0.75 ng/mL; Prostate Specific Ag 2.7 ng/mL (0.0-4.0)
== END ==
LOC: LAB 14:20
PROVIDERS: PCP Family Medicine; Visit Provider Urology
DX: N19 Unspecified kidney failure (principal)
CPT/HCPCS: 36415; 80053; 81001; 82565; 84153; 84154; 84520; 85025

== ENCOUNTER 2023-06-28 06:41 | Day surgery (SDC) | payer OTHER, SELFPAY ==
[2023-06-24 13:57] VITALS: BMI 28.8
[2023-06-28 07:04] VITALS: BP 164/74; PULSE 65; RESP 18; TEMP 36.4; O2SAT 97
[2023-06-28] MEDS: LACTATED RINGERS 1000ML 1,000 ML 25 ML IV (07:15)
--- NOTE | 2023-06-28 07:38 | P.PNANES_ITS ---
[facility] Disclaimer: The information contained in this section may have been updated after the patient was seen, as this information can be updated by other users. 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 current occupational exposures/hazards: Yes caffeine: Yes [facility] Anesthesia Checklist Patient Identification Patient Identification: Arm Band and Verbal (Name & ) Structural Data Admitted From: Home Planned Operative Procedure/s: Cystoscopy Consent for Planned Operative Procedure(s) Verified: Yes NPO Status Verified Time NPO: 00:00 Additional verifications Anesthesia Reactions: No Hx Blood Transfusions: No Blood Transfusion Reaction: No Airway Assessment Mallampati Score:: Class III C-Spine Mobility Assessed: Yes TMJ Mobility Assessed: Yes Dentition: Edentulous Neurological Assessment Level of Consciousness: Awake Hx Seizures: No Numbness or tingling in extremities: No Anesthesia Plan Anesthesia Risk discussed: Yes Anesthesia Plan: Verified ASA Class: III Anesthesia Type: General
--- NOTE | 2023-06-28 08:20 | P.PCN_ITS ---
[facility] Procedure Note Date: 06/28/23 Time: 08:20 Procedure Note:: Hematuria: The patient comes with recent documented microscopic hematuria. The dipstick today has moderate occult blood. I am going to do a complete urine analysis. In the emergency room he had 15-20 red cells per high-powered field. The patient CT scan shows diverticulosis of the left colon. His residual urine by bladder scan today is 0 cc. He has significant atrophy of the left kidney no stones or hydronephrosis is reported. Nephrolithiasis: The patient has a long history of known recurrent stones in the kidney. He says he still has a stone or to the size of a quarter. He has some vascular abnormalities to the kidney and has had stents placed in the arteries. He tells me he has had a recent CTA and were trying to acquire that study and it showed some swelling of the prostate gland. He has had no prevention as for stones or concern. BPH: The patient has nocturia x 2. Otherwise he denies hesitation intermittency straining to urinate or feeling of incomplete emptying of the urinary bladder. Abdominal pain: The patient complains of a 10-day history of suprapubic crampy type pain. He had some diarrhea a few days back. He feels that the abdominal pain is improving somewhat and gives it a 4 of 10 in intensity today. Diverticular disease:: The patient CT scan indicated he had diverticular disease. This very well may be the source for the abdominal pain. Patient then says that he has had recent episodes of pain when he tries to have a bowel movement. He has not seen GI medicine and is in need of their evaluation and colonoscopy. Chronic Renal Failure: The patient has documented elevated creatining 1.6 (43 ml/min)
--- NOTE | 2023-06-28 08:55 | HMH.PROCNOTE ---
[facility] Procedure Note Date: 06/28/23 Time: 09:16 Procedure Note:: Preop diagnosis hematuria Postop diagnosis hematuria Patient was brought to the cystoscopy room. He was prepped and draped using sterile technique after anesthesia. His anterior urethra is unremarkable. The patient has no prostatic obstruction in the posterior urethra. The bladder wall is smooth without stone tumor hemorrhage or infection. The ureteral orifices are normal bilaterally. The patient tolerated the procedure well.
[2023-06-28 09:17] VITALS: BP 117/59; PULSE 90; RESP 14; TEMP 36.6; O2SAT 91
[2023-06-28 09:27] VITALS: BP 118/78; PULSE 86; RESP 16; O2SAT 92
[2023-06-28 09:36] VITALS: BP 140/80; PULSE 85; RESP 16; O2SAT 95
[2023-06-28 09:41] VITALS: BP 144/80; PULSE 78; RESP 16; O2SAT 96
== END 2023-06-28 09:47 | disposition home or self-care (01) ==
PROVIDERS: PCP Family Medicine; Visit Provider Urology
PROC: 0TJB8ZZ Inspection of Bladder, Via Natural or Artificial Opening Endoscopic (ICD-10-PCS; CPT 52000; principal; 2023-06-28 08:45)
DX: R31.29 Other microscopic hematuria (principal); K57.30 Diverticulosis of large intestine without perforation or abscess without bleeding; N26.1 Atrophy of kidney (terminal); N20.0 Calculus of kidney; N40.1 Benign prostatic hyperplasia with lower urinary tract symptoms
CPT/HCPCS: 52000

== ENCOUNTER 2023-07-21 09:15 | Day surgery (SDC) | payer OTHER, SELFPAY ==
[2023-07-16 09:00] VITALS: BMI 27.1
[2023-07-21] VITALS (8 sets, daily range): BP systolic 94–197; BP diastolic 48–91; PULSE 57–78; RESP 16–18; TEMP 36.1–36.6; O2SAT 92–99
[2023-07-21] MEDS: LACTATED RINGERS 1000ML 1,000 ML 25 ML IV (09:37)
--- NOTE | 2023-07-21 09:56 | P.PNANES_ITS ---
[facility] Disclaimer: The information contained in this section may have been updated after the patient was seen, as this information can be updated by other users. Medical History Acute renal failure BPH (benign prostatic hyperplasia) History of kidney stones History of MD (myocardial infarction) Hx of nephrolithotomy with removal of calculi Hyperlipidemia Hypertension Surgical History H/O umbilical hernia repair History of renal stent Family History Father Diabetes Other Enlarged prostate Social History Smoking Status: Current every day smoker tobacco type: cigarettes packs per day: 1 alcohol intake: never substance use type: denies use current occupational status: employed Travel in the last 8 weeks: None household members: spouse, significant other, family and children housing: house 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 Anesthesia Checklist Patient Identification Patient Identification: Arm Band and Verbal (Name & ) Structural Data Admitted From: Home Planned Operative Procedure/s: Colonoscopy Consent for Planned Operative Procedure(s) Verified: Yes NPO Status Verified Time NPO: 00:00 Additional verifications Anesthesia Reactions: No Hx Blood Transfusions: No Blood Transfusion Reaction: No Airway Assessment Mallampati Score:: Class II C-Spine Mobility Assessed: Yes TMJ Mobility Assessed: Yes Dentition: Edentulous Neurological Assessment Level of Consciousness: Awake Hx Seizures: No Numbness or tingling in extremities: No Anesthesia Plan Anesthesia Risk discussed: Yes Anesthesia Plan: Verified ASA Class: III Anesthesia Type: MAC
--- NOTE | 2023-07-21 11:01 | HMH.SCOPE ---
Procedure: Date: 07/21/23 Patient Date of :: 1970 Procedure Performed:: Colonoscopy Indications:: The patient is a 52-year-old who presents for average risk colorectal cancer screening. This is the patient's first colonoscopy. Performing Provider:: Valente Gallegos MD Referring Provider:: Rohan Lam MD Sedation:: See RN records Procedure:: After placing the patient in the left lateral decubitus position, the colonoscopy was gently inserted into the rectum and under direct visualization advanced to the cecum which was identified by transillumination in the right lower quadrant, identification of the ileocecal valve, appendiceal orifice, and cecal strap. Color, texture, mucosa, and anatomy of the colon were carefully examined with the scope. Findings:: The quality of the bowel preparation in the sigmoid colon and descending colon was fair to poor. The quality of the bowel preparation in the remaining colon was fair to good. There were colon spasms. There were multiple polyps were removed during the colonoscopy. There was one sessile polyp less than 10 mm in size in the cecum. The polyp was removed by cold snare polypectomy. There were three sessile polyps in the ascending colon less than 10 mm in size. All polyps were removed by cold snare polypectomy. There were three sessile polyps less than 10 mm in size in the transverse colon. All polyps removed by cold snare polypectomy. There was a sessile polyp less than 10 mm in size in the descending colon. The polyp was removed by cold snare polypectomy. There were seven polyps removed from the sigmoid colon. One pedunculated polyp measured greater than 10 mm in size and the remaining polyps were at least 10 mm in size and less. Polyps were removed by cold snare and hot snare polypectomy. There were five sessile polyps removed from the rectum. All polyps were 5 mm in size or less. Polyps removed by cold snare polypectomy. There was diverticulosis noted in the ascending colon and sigmoid colon. On retroflexion view there were internal hemorrhoids noted. Impression: Multiple colon polyps (20 polyps removed on today's colonoscopy) Diverticulosis Recommendations:: Await pathology results Recommend to repeat colonoscopy in 6 months with 2 days liquid diet and split dose bowel preparation Complications:: none Estimated blood obtained (mL): 0 Colonoscopy Component Colonoscopy Component Was a colonoscopy performed during today's procedure?: Yes Recommended follow up colonoscopy of at least 10 years?: Yes
--- NOTE | 2023-07-21 11:12 | PC.NURSE ---
1100 - Pt to post op via stretcher. Report received from Tracey Kirk RN. Desire Wagner,BRIGHT at bedside during report as well. Pt does have an oral airway in place. Tolerating room air w/ sat > 90%. Nurse remains at bedside.
--- NOTE | 2023-07-21 11:20 | SUR.PHASEII ---
F/U Apt with Jennie Sevilla made for , 09/23/23 @ 3 pm
--- NOTE | 2023-07-21 11:34 | PC.NURSE ---
1125 - Oral airway out at 1125. Pt responds to commands, but not fully alert and oriented.
== END 2023-07-21 12:00 | disposition home or self-care (01) ==
PROVIDERS: PCP Family Medicine; Visit Provider Internal Medicine
PROC: 0DJD8ZZ Inspection of Lower Intestinal Tract, Via Natural or Artificial Opening Endoscopic (ICD-10-PCS; CPT 45378; principal; 2023-07-21 10:30)
DX: Z12.11 Encounter for screening for malignant neoplasm of colon (principal); K58.9 Irritable bowel syndrome, unspecified; K57.30 Diverticulosis of large intestine without perforation or abscess without bleeding; K64.8 Other hemorrhoids; D12.0 Benign neoplasm of cecum; D12.2 Benign neoplasm of ascending colon; D12.3 Benign neoplasm of transverse colon; D12.4 Benign neoplasm of descending colon
CPT/HCPCS: 45385; J2704

== ENCOUNTER 2023-07-26 12:22 | Outpatient (CLI) | payer OTHER, SELFPAY ==
[2023-07-26 11:25] LABS: Microscopic, Urine URINE MICROSCOPIC (MICROSCOPIC)
[2023-07-26 12:13] LABS: Appearance,Urine CLEAR (Clear); Bilirubin,Urine Negative (Negative); Blood, Urine 2+ (Negative); Color,Urine YELLOW (Yellow); Glucose,Urine (UA) TRACE (Negative); Ketones,Urine Negative (Negative); Leukocyte Esterase,Urine Negative (Negative); Nitrate,Urine Negative (Negative); Protein,Urine Negative (Negative); Urobilinogen,Urine 0.2 EU/dl (0.2)
[2023-07-26 13:13] LABS: Blood Urea Nitrogen 6 mg/dl (9-20); Estimated Glomerular Filt Rate 54 ml/min (>60); GFR (African American) 65 ML/MIN (>60)
[2023-07-26 13:47] LABS: Prostate Specific Ag Screen 4.2 ng/ml (0.0-4.0)
[2023-07-26 14:19] LABS: Bacteria,Urine Trace /lpf; Squamous Epithelial Cell,Urine Occasional #/hpf (0-5)
== END 2023-07-26 23:59 ==
LOC: LAB 12:22
PROVIDERS: PCP Family Medicine; Visit Provider Urology
DX: Z12.5 Encounter for screening for malignant neoplasm of prostate; N17.8 Other acute kidney failure
CPT/HCPCS: 36415; 81001; 82565; 84520; G0103

== ENCOUNTER 2023-07-27 09:16 | Outpatient (CLI) | payer OTHER, SELFPAY ==
--- NOTE | 2023-07-27 09:16 | CT_ITS ---
FINAL REPORT TECHNIQUE: Axial CT images of the abdomen and pelvis were obtained before and after the administration of IV contrast. Oral contrast was administered.This study was performed with techniques to keep radiation doses as low as reasonably achievable (ALARA). Individualized dose reduction techniques using automated exposure control or adjustment of mA and/or kV according to the patient''s size were employed. CLINICAL HISTORY: abdominal pain COMPARISON: 12/28/2022 FINDINGS: Abdomen: There is mild scarring in the lung bases. The spleen is unremarkable. No adrenal masses present. The pancreas has an unremarkable appearance. There is left renal artery stent. Severe left renal atrophy is identified. There are nonobstructing bilateral renal stones, largest on the left measures up to 7 mm. The aorta is normal in caliber. There is no free fluid or adenopathy. No mass or abnormal fluid collection is seen. Pelvis: The appendix is unremarkable. There is diffuse mild colon wall thickening, may represent colitis. There are scattered diverticula in the descending and sigmoid colon. There is mild bladder wall thickening, likely inflammatory. There is no evidence of mass or adenopathy. There is no evidence of bowel obstruction. IMPRESSION: Findings may represent colitis. Bilateral nephrolithiasis. Reviewed, Interpreted and Dictated by Heraclio Warren III, MD Transcribed by Madelaine Lou Authenticated and [facility]
[2023-07-27] MEDS: SODIUM CHLORIDE 0.9% 10ML SYR (RAD ONLY) 10 ML IV (09:50)
[2023-07-27] MEDS: IOPAMIDOL-370 (76%);100ML BOTTLE 75 ML IV (09:50)
== END 2023-07-27 23:59 ==
LOC: RAD 09:16
PROVIDERS: PCP Family Medicine; Visit Provider Urology
DX: R10.9 Unspecified abdominal pain (principal); N17.9 Acute kidney failure, unspecified
CPT/HCPCS: 74178; Q9967

== ENCOUNTER 2023-08-02 12:05 | Outpatient (CLI) | payer OTHER, SELFPAY | END 2023-08-02 23:59 | LOC: LAB.DROPOF 12:05 | PROVIDERS: PCP Urology; Visit Provider Urology | DX: R31.9 Hematuria, unspecified (principal); R80.9 Proteinuria, unspecified; R82.81 Pyuria; B96.89 Other specified bacterial agents as the cause of diseases classified elsewhere | CPT/HCPCS: 87086 ==

== ENCOUNTER 2023-08-31 13:46 | Emergency (ER) | payer OTHER, SELFPAY ==
[2023-08-31 13:46] VITALS: BP 177/102; PULSE 63; RESP 16; TEMP 36.6; O2SAT 98; BMI 26.6
--- NOTE | 2023-08-31 14:06 | CT_ITS ---
FINAL REPORT TECHNIQUE: Pre-and postcontrast images of the abdomen and pelvis were performed by computed tomography. Extensive 3-D reconstruction images were performed. A CTA was performed. This study was performed with techniques to keep radiation doses as low as reasonably achievable (ALARA). Individualized dose reduction techniques using automated exposure control or adjustment of mA and/or kV according to the patient's size were employed. CLINICAL HISTORY: severe abd pain with meals, weight loss COMPARISON: None FINDINGS: CTA ABDOMEN AND PELVIS: Moderate vascular calcifications are noted in the abdominal aorta and pelvic vessels. 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 There is mild plaque in the proximal superior mesenteric artery with out significant stenosis. The ROSA is patent. There is 30% stenosis of the proximal right renal artery. There is a left renal artery stent, and the remaining main left renal artery is of small caliber. There is an accessory vessel supplying the upper pole of the left kidney. There is mild stenosis of the common iliac arteries bilaterally. The external and internal iliac vessels are patent. CT ABDOMEN AND PELVIS: Moderate vascular calcifications are present. There is severe atrophy of the left kidney. The solid organs are otherwise unremarkable in appearance. There are bilateral nonobstructing renal stones, the largest on the left side measures 5 mm in size. The appendix is normal in appearance. There is diverticulosis of the descending and sigmoid colon. 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 Mild plaque in the proximal superior mesenteric artery origin without significant stenosis. The ROSA is patent. 30% stenosis in the proximal right renal artery. There is a left renal artery stent, and the remaining left main renal artery is of small caliber. There are mild stenoses of the bilateral common iliac arteries. Reviewed, Interpreted and Dictated by Heraclio Warren III, MD Transcribed by Adelina Rausch Authenticated and [facility]
[2023-08-31 14:17] LABS: Basophils # 0.2 K/mm3 (0-0.2); Basophils % 1.8 % (0.1-2.0); Eosinophils # 0.5 K/mm3 (0.0-0.4); Eosinophils % 4.3 % (0.1-12.0); Hematocrit 56.9 % (42.0-52.0); Lymphocytes # 2.1 K/mm3 (0.7-4.5); Lymphocytes % 18.8 % (10-50); Mean Corpuscular HGB Conc 32.8 g/dL (31.8-35.4); Mean Corpuscular Hemoglobin 30.7 pg (27.0-31.2); Mean Corpuscular Volume 93.8 fl (80-94); Mean Platelet Volume 7.7 fl (7.4-10.4); Monocytes # 0.9 K/mm3 (0.1-1.0); Monocytes % 8.4 % (1.7-9.3); Neutrophils # 7.3 K/mm3 (1.8-7.8); Neutrophils % 66.7 % (37.0-80.0); Platelet Count 321 K/mm3 (142-424); Red Blood Count 6.06 M/mm3 (4.60-6.20); Red Cell Distribution Width 15.5 % (11.5-17.5)
[2023-08-31 14:21] LABS: INR 1.04 (0.9-1.1); Prothrombin Time 11.2 seconds (10.1-12.5)
[2023-08-31] MEDS: KETOROLAC 30MG/ML VIAL 15 MG IV (14:22)
[2023-08-31] MEDS: MORPHINE 4MG/ML SYRINGE 4 MG IV (14:22)
[2023-08-31 14:23] LABS: Microscopic, Urine URINE MICROSCOPIC (MICROSCOPIC)
[2023-08-31 14:28] LABS: Appearance,Urine CLEAR (Clear); Blood, Urine 3+ (Negative); Color,Urine YELLOW (Yellow); Glucose,Urine (UA) Negative (Negative); Ketones,Urine Negative (Negative); Leukocyte Esterase,Urine Negative (Negative); Nitrate,Urine Negative (Negative); Protein,Urine 1+ (Negative); Specific Gravity, Urine >= 1.030 (1.005-1.030)
[2023-08-31 14:30] VITALS: BP 126/84; PULSE 65; O2SAT 98
--- NOTE | 2023-08-31 14:31 | HMH.EDGENADL ---
Discharge Plan Disposition Patient Disposition: Home, Self-Care Condition: Good Prescriptions Prescriptions: New pantoprazole 40 mg tablet,delayed release (DR/EC) 40 mg PO DAILY Qty: 30 0RF No Action isosorbide mononitrate 30 mg tablet extended release 24 hr 30 mg PO DAILY Patient Comments: TAKE 1 TABLET BY MOUTH ONCE DAILY IN THE MORNING tamsulosin [Flomax] 0.4 mg capsule 0.4 mg PO DAILY Qty: 30 3RF GaviLyte-C [id number] -5.84 gram recon soln 240 ml PO Q10M Qty: 4000 0RF Rx Instructions: follow mailed instructions atorvastatin 80 MG tablet 80 mg PO DAILY carvedilol 25 MG tablet 25 mg PO BID isosorbide mononitrate 120 MG tablet extended release 24 hr 30 mg PO DAILY Rx Instructions: PT SAYS TOLD HIM TO TAKE 1/2 TABLET DAILY aspirin 81 MG tablet,chewable 81 mg PO DAILY Xarelto 2.5 mg tablet 2.5 mg PO DAILY Hold Instructions: Resume on 07/24/23. Patient Comments: TAKE 1 TABLET BY MOUTH TWICE DAILY FOR 30 DAYS Referrals Follow up/Referrals: Rohan Lam MD [Primary Care Provider] - See instructions Heraclio Contreras MD [Staff Physician] - See instructions Ulises Hannah MD [Staff Physician] - See instructions Activity Restrictions/Add. Instructions Additional Instructions/Restrictions: You were evaluated in the emergency department today. Please follow-up very closely with your primary care provider. I am prescribing you a medication to take for your stomach to prevent excess stomach acid. Please take this daily as prescribed. Follow-up outpatient with either gastroenterology or general surgery, as I feel that you would benefit from upper endoscopy. Vascular surgery for [facility] is also going to contact you with an appointment so that you can be seen by them as well for evaluation and management of the narrowing of the blood vessels in your intestines. Return to the emergency department for new or worsening symptoms. Clinical Impressions Clinical Impression: Mesenteric artery stenosis, Abdominal pain, Blood in stool Stand Alone Forms Stand Alone Forms: Work/School Release Instructions Patient Instructions: DI for Acute Abdominal Pain, DI for Chronic Pain -- Adult Discharge ED Provider: Keena Gilman General Adult HPI <Bar Lopez MD - Last Filed: 08/31/23 15:40> General Chief complaint: Abdominal Pain Stated complaint: blood in stool Time Seen by Provider: 08/31/23 13:49 Mode of Arrival: Ambulatory Source of Information: Patient Limitations: No Limitations Description of Symptoms (Recalled from ER Triage Doc. by RN): Patient ambulatory to ED with complaints of lower abd pain and stools containing brght red blood. Patient currently on blood thinner. Ongoing issues with prostate, and bowels for several months. Increased pain this morning. N/D present, denies fevers History of Present Illness HPI narrative: This is a 53-year-old male with history of hypertension, hyperlipidemia, CAD, CKD 3, CHF, BPH, renal artery stenosis and stenting, presenting with bright red blood per rectum in the setting of chronic abdominal pain. Patient states that he has had abdominal pain since May. He has been to numerous ERs try to work it up. Has also been sent to nephrology. Patient states that he has a stent in his renal artery because it was drinking. He states that he is on Xarelto because of his heart disease and he has been taking this as prescribed. Has had hematuria since following up with his urologist just a couple months ago. Has had cystoscopy, abdominal CTs, without much avail. Patient states that he is coming in with abdominal pain that is primarily epigastric/right upper quadrant, made worse with trying to eat meals. He states that when he tries to eat, he has food aversions. Has had weight loss since May as well. No fevers or chills. Also states that because of his weight loss, he was told he needed a colonoscopy. Had a colonoscopy just recently, over 20 polyps were removed. Patient started having bright red blood per rectum that started yesterday. He states that they are soft, equal amount blood in stool. Please note that above description of symptoms, in this electronic medical record under categorization of recalled from ER triage doctor by RN are reflective of an initial nursing assessment, however, is not reflective of my full history and physical exam that was personally taken and clarified. Consequentially, this preceding description of symptoms, which may include the patient's categorized chief complaint in the EMR, do not reflect my personal clinical impression, and the ultimate description of history of present illness and patient stated complaints should be deferred to this section of the note. Unless stated otherwise or congruent with this section of the note, additional signs, symptoms, or incongruence should be interpreted as inaccurate with my clinical impression. Related Data Home Medications Medication Instructions Recorded Confirmed aspirin 81 mg chewable tablet 81 mg PO DAILY heart 10/19/17 08/02/23 atorvastatin 80 mg tablet 80 mg PO DAILY Cholesterol 10/19/17 08/02/23 carvedilol 25 mg tablet 25 mg PO BID Heart 10/19/17 08/02/23 isosorbide mononitrate 120 mg 30 mg PO DAILY heart 10/19/17 08/02/23 tablet,extended release 24 hr rivaroxaban 2.5 mg tablet (Xarelto) 2.5 mg PO DAILY 06/24/23 08/02/23 isosorbide mononitrate 30 mg 30 mg PO DAILY 08/02/23 08/02/23 tablet,extended release 24 hr Previous Rx's Medication Instructions Recorded peg 3350 240 gram-electrolytes 240 ml PO Q10M #4,000 mL 07/09/23 22.72 gram-6.72 g-5.84 g powdr for soln (Gavilyte-C) tamsulosin 0.4 mg capsule (Flomax) 0.4 mg PO DAILY #30 caps 08/02/23 pantoprazole 40 mg tablet,delayed 40 mg PO DAILY #30 tabs 08/31/23 release Allergies Allergy/AdvReac Type Severity Reaction Status Date / Time lisinopril Allergy Verified 08/02/23 11:23 [facility] <Bar Lopez MD - Last Filed: 08/31/23 15:40> [facility] Disclaimer: The information contained in this section may have been updated after the patient was seen, as this information can be updated by other users. Medical History Acute renal failure BPH (benign prostatic hyperplasia) History of kidney stones History of AK (myocardial infarction) Hx of nephrolithotomy with removal of calculi Hyperlipidemia Hypertension Surgical History H/O umbilical hernia repair History of renal stent Family History Father Diabetes Other Enlarged prostate Social History Smoking Status: Current every day smoker tobacco type: cigarettes packs per day: 1 alcohol intake: never substance use type: denies use current occupational status: employed Travel in the last 8 weeks: None household members: spouse, significant other, family and children housing: house 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 current occupational exposures/hazards: Yes caffeine: Yes <Bar Lopez MD - Last Filed: 08/31/23 15:40> ROS Obtained: Yes All systems reviewed & no additional complaints except as documented Physical Exam <Bar Lopez MD - Last Filed: 08/31/23 15:40> General General appearance: alert, in no apparent distress and other (Appears uncomfortable) Head Head exam: atraumatic and normocephalic Eye Eye exam: Present normal appearance, PERRL and EOMI ENT ENT exam: Present mucous membranes moist Neck Neck exam: Present normal inspection, full ROM and trachea midline Respiratory Respiratory exam: Absent respiratory distress, wheezes, stridor, accessory muscle use or prolonged expiratory phase Cardiovascular Cardiovascular exam: Present regular rate and normal rhythm Abdominal Exam Abdominal exam: Present soft and tenderness; Absent distention, guarding, rebound or rigidity Abdominal tenderness: Present diffuse and mild Extremities Exam Extremities exam: Absent edema Neurological Exam Neurological exam: Present alert, oriented X3, CN II-XII intact and normal gait; Absent motor sensory deficit Skin Skin exam: Present warm and dry; Absent diaphoresis or erythema Medical Decision Making <Bar Lopez MD - Last Filed: 08/31/23 15:40> Medical Records Medical records reviewed: Yes I reviewed the patient's medical records. [place] Inquiry Pt receiving controlled substance: No [place] was queried for this patient: No Vital Signs: 08/31/23 13:46 08/31/23 14:30 08/31/23 15:00 Temperature 97.9 F Temperature Source Oral Pulse Rate 65 61 Pulse Rate [Right] 63 Respiratory Rate 16 Blood Pressure 126/84 147/95 H Blood Pressure [Right Arm] 177/102 H Blood Pressure Mean Blood Pressure Mean [Right Arm] 127 Blood Pressure Source Blood Pressure Source [Right Arm] Automatic Cuff Blood Pressure Position Blood Pressure Position [Right Arm] Sitting 02 Sat by Pulse Oximetry 98 98 96 Oxygen Delivery Method Room Air Room Air Room Air 08/31/23 15:31 08/31/23 16:00 08/31/23 18:43 Temperature 98.1 F Temperature Source Oral Pulse Rate 54 L 53 L 53 L Pulse Rate [Right] Respiratory Rate 15 Blood Pressure 160/88 H 160/82 H 139/87 Blood Pressure [Right Arm] Blood Pressure Mean 112 112 Blood Pressure Mean [Right Arm] Blood Pressure Source Automatic Cuff Blood Pressure Source [Right Arm] Blood Pressure Position Sitting Blood Pressure Position [Right Arm] 02 Sat by Pulse Oximetry 98 97 Oxygen Delivery Method Room Air Lab Data Lab Results 08/31/23 14:00: WBC 11.0 H, RBC 6.06, Hgb 18.5 H, Hct 56.9 H, MCV 93.8, MCH 30.7, MCHC 32.8, RDW 15.5, Plt Count 321, MPV 7.7, Neut % (Auto) 66.7, Lymph % (Auto) 18.8, [place] % (Auto) 8.4, Eos % (Auto) 4.3, Baso % (Auto) 1.8, Neut # (Auto) 7.3, Lymph # (Auto) 2.1, [place] # (Auto) 0.9, Eos # (Auto) 0.5 H, Baso # (Auto) 0.2, PT 11.2, INR 1.04, APTT 31.0 H, Sodium 135 L, Potassium 4.2, Chloride 101, Carbon Dioxide 28, Anion Gap 10.2, BUN 11, Creatinine 1.50 H, Estimated Creat Clear 71, Estimated GFR 49 L, Est GFR ( Amer) 60, Glucose 107 H, Calcium 9.4, Total Bilirubin 0.9, AST 31, ALT 15, Alkaline Phosphatase 171 H, Troponin I < 0.01, Total Protein 7.1, Albumin 4.2, Globulin 2.9, Albumin/Globulin Ratio 1.4 08/31/23 14:20: Urine Color Yellow, Urine Appearance Clear, Urine pH 6.0, Ur Specific Ronda >= 1.030, Urine Protein 1+, Urine Glucose (UA) Negative, Urine Ketones Negative, Urine Blood 3+, Urine Nitrate Negative, Urine Bilirubin 1+ A, Urine Urobilinogen 1.0, Ur Leukocyte Esterase Negative, Urine RBC 50-100, Urine WBC 3-5, Ur Squamous Epith Cells 5-10, Urine Bacteria 1+, Urine Mucus 1+ 08/31/23 15:00: Lactate 0.8 08/31/23 16:00: Stool Occult Blood Positive A 08/31/23 18:02: Troponin I < 0.01 08/31/23 14:00 08/31/23 14:00 Orders (Tests/Meds): ED MEDICATIONS Discontinued Medications Generic Name Dose Route Start Last Admin Trade Name Melissa PRN Reason Stop Dose Admin Gadoteridol 94 ml 08/31/23 15:13 08/31/23 15:18 Gadoteridol Inj 17ml Syringe IV 08/31/23 15:14 Not Given ONCE ONE Iopamidol 94 ml 08/31/23 15:18 08/31/23 15:19 Iopamidol-370 (76%);100ml Bottle IV 08/31/23 15:19 94 ml ONCE ONE Administration Ketorolac Tromethamine 15 mg 08/31/23 14:11 08/31/23 14:22 Ketorolac 30mg/Ml Vial IV 08/31/23 14:12 15 mg ONCE ONE Administration Morphine Sulfate 4 mg 08/31/23 14:11 08/31/23 14:22 Morphine 4mg/Ml Syringe IV 08/31/23 14:12 4 mg ONCE ONE Administration Sodium Chloride 40 ml 08/31/23 15:13 08/31/23 15:17 0.9 % Sodium Chloride 50 Ml Vial IV 08/31/23 15:14 40 ml ONCE ONE Administration Sodium Chloride 10 ml 08/31/23 15:13 08/31/23 15:17 Sodium Chloride 0.9% 10ml Syr (Rad Only) IV 08/31/23 15:14 10 ml ONCE ONE Administration ORDERS Category Date Time Status CT angio abdomen pelvis Stat Cat Scan 08/31/23 14:06 Taken POCUS Point of Care (ER Only) Stat Exams 08/31/23 14:11 Completed CBC w/Auto Diff [Complete Blood Count Auto Diff] Stat Lab 08/31/23 14:00 Completed CMP [Comprehensive Metabolic Panel] Stat Lab 08/31/23 14:00 Completed Lactic Acid Stat Lab 08/31/23 15:00 Completed Occult Blood,Stool Stat Lab 08/31/23 16:00 Completed PT INR [Prothrombin Time INR] Stat Lab 08/31/23 14:00 Completed PTT [Activated Partial Thrombo Time] Stat Lab 08/31/23 14:00 Completed Trop I [Troponin I] Stat Lab 08/31/23 14:00 Completed Troponin I Q3H Lab 08/31/23 18:02 Completed Troponin I Q3H Lab 08/31/23 20:15 Ordered UA [Urinalysis and Microscopic] Stat Lab 08/31/23 14:20 Completed Medical Decision Narrative: This is a 53-year-old male with history of hypertension, hyperlipidemia, CAD, CKD 3, CHF, BPH, renal artery stenosis and stenting, presenting with bright red blood per rectum in the setting of chronic abdominal pain. Patient states that he has had abdominal pain since May. He has been to numerous ERs try to work it up. Has also been sent to nephrology. Patient states that he has a stent in his renal artery because it was drinking. He states that he is on Xarelto because of his heart disease and he has been taking this as prescribed. Has had hematuria since following up with his urologist just a couple months ago. Has had cystoscopy, abdominal CTs, without much avail. Patient states that he is coming in with abdominal pain that is primarily epigastric/right upper quadrant, made worse with trying to eat meals. He states that when he tries to eat, he has food aversions. Has had weight loss since May as well. No fevers or chills. Also states that because of his weight loss, he was told he needed a colonoscopy. Had a colonoscopy just recently, over 20 polyps were removed. Patient started having bright red blood per rectum that started yesterday. He states that they are soft, equal amount blood in stool. History was obtained via conversation with patient and . On arrival, patient hemodynamically stable, alert, oriented x4, appropriate, GCS 15, moving all extremities spontaneously, pupils equal and reactive to light. Full physical exam performed and significant for chronically ill-appearing male in no acute distress. Abdomen is diffusely tender, but no evidence of peritonitis. Nondistended. No flank tenderness. No overlying skin changes. Differential includes pancreatitis, enteritis, SBO, cholecystitis, choledocholithiasis, appendicitis hepatitis, aortic pathology, mesenteric ischemia among others. Patient was given Toradol, morphine for symptomatic management and correction of underlying abnormalities. Workup independently interpreted and significant for mild leukocytosis 11. Nonactionable coags. Chemistry with stable CKD creatinine 1.5. Lactate negative at 0.8. LFTs nonactionable. Initial troponin negative. Urinalysis without concern for UTI, but he does have blood, which is known to patient. Right upper quadrant ultrasound normal. Patient feeling much better after Toradol and morphine. CTA of the abdomen pelvis pending at time of handoff to oncoming physician. <Keena Reyes Gilman, DO - Last Filed: 08/31/23 19:15> Vital Signs: 08/31/23 13:46 08/31/23 14:30 08/31/23 15:00 Temperature 97.9 F Temperature Source Oral Pulse Rate 65 61 Pulse Rate [Right] 63 Respiratory Rate 16 Blood Pressure 126/84 147/95 H Blood Pressure [Right Arm] 177/102 H Blood Pressure Mean Blood Pressure Mean [Right Arm] 127 Blood Pressure Source Blood Pressure Source [Right Arm] Automatic Cuff Blood Pressure Position Blood Pressure Position [Right Arm] Sitting 02 Sat by Pulse Oximetry 98 98 96 Oxygen Delivery Method Room Air Room Air Room Air 08/31/23 15:31 08/31/23 16:00 08/31/23 18:43 Temperature 98.1 F Temperature Source Oral Pulse Rate 54 L 53 L 53 L Pulse Rate [Right] Respiratory Rate 15 Blood Pressure 160/88 H 160/82 H 139/87 Blood Pressure [Right Arm] Blood Pressure Mean 112 112 Blood Pressure Mean [Right Arm] Blood Pressure Source Automatic Cuff Blood Pressure Source [Right Arm] Blood Pressure Position Sitting Blood Pressure Position [Right Arm] 02 Sat by Pulse Oximetry 98 97 Oxygen Delivery Method Room Air Lab Data Lab Results 08/31/23 14:00: WBC 11.0 H, RBC 6.06, Hgb 18.5 H, Hct 56.9 H, MCV 93.8, MCH 30.7, MCHC 32.8, RDW 15.5, Plt Count 321, MPV 7.7, Neut % (Auto) 66.7, Lymph % (Auto) 18.8, [place] % (Auto) 8.4, Eos % (Auto) 4.3, Baso % (Auto) 1.8, Neut # (Auto) 7.3, Lymph # (Auto) 2.1, [place] # (Auto) 0.9, Eos # (Auto) 0.5 H, Baso # (Auto) 0.2, PT 11.2, INR 1.04, APTT 31.0 H, Sodium 135 L, Potassium 4.2, Chloride 101, Carbon Dioxide 28, Anion Gap 10.2, BUN 11, Creatinine 1.50 H, Estimated Creat Clear 71, Estimated GFR 49 L, Est GFR ( Amer) 60, Glucose 107 H, Calcium 9.4, Total Bilirubin 0.9, AST 31, ALT 15, Alkaline Phosphatase 171 H, Troponin I < 0.01, Total Protein 7.1, Albumin 4.2, Globulin 2.9, Albumin/Globulin Ratio 1.4 08/31/23 14:20: Urine Color Yellow, Urine Appearance Clear, Urine pH 6.0, Ur Specific Ronda >= 1.030, Urine Protein 1+, Urine Glucose (UA) Negative, Urine Ketones Negative, Urine Blood 3+, Urine Nitrate Negative, Urine Bilirubin 1+ A, Urine Urobilinogen 1.0, Ur Leukocyte Esterase Negative, Urine RBC 50-100, Urine WBC 3-5, Ur Squamous Epith Cells 5-10, Urine Bacteria 1+, Urine Mucus 1+ 08/31/23 15:00: Lactate 0.8 08/31/23 16:00: Stool Occult Blood Positive A 08/31/23 18:02: Troponin I < 0.01 Orders (Tests/Meds): ED MEDICATIONS Discontinued Medications Generic Name Dose Route Start Last Admin Trade Name Melissa PRN Reason Stop Dose Admin Gadoteridol 94 ml 08/31/23 15:13 08/31/23 15:18 Gadoteridol Inj 17ml Syringe IV 08/31/23 15:14 Not Given ONCE ONE Iopamidol 94 ml 08/31/23 15:18 08/31/23 15:19 Iopamidol-370 (76%);100ml Bottle IV 08/31/23 15:19 94 ml ONCE ONE Administration Ketorolac Tromethamine 15 mg 08/31/23 14:11 08/31/23 14:22 Ketorolac 30mg/Ml Vial IV 08/31/23 14:12 15 mg ONCE ONE Administration Morphine Sulfate 4 mg 08/31/23 14:11 08/31/23 14:22 Morphine 4mg/Ml Syringe IV 08/31/23 14:12 4 mg ONCE ONE Administration Sodium Chloride 40 ml 08/31/23 15:13 08/31/23 15:17 0.9 % Sodium Chloride 50 Ml Vial IV 08/31/23 15:14 40 ml ONCE ONE Administration Sodium Chloride 10 ml 08/31/23 15:13 08/31/23 15:17 Sodium Chloride 0.9% 10ml Syr (Rad Only) IV 08/31/23 15:14 10 ml ONCE ONE Administration ORDERS Category Date Time Status CT angio abdomen pelvis Stat Cat Scan 08/31/23 14:06 Taken POCUS Point of Care (ER Only) Stat Exams 08/31/23 14:11 Completed CBC w/Auto Diff [Complete Blood Count Auto Diff] Stat Lab 08/31/23 14:00 Completed CMP [Comprehensive Metabolic Panel] Stat Lab 08/31/23 14:00 Completed Lactic Acid Stat Lab 08/31/23 15:00 Completed Occult Blood,Stool Stat Lab 08/31/23 16:00 Completed PT INR [Prothrombin Time INR] Stat Lab 08/31/23 14:00 Completed PTT [Activated Partial Thrombo Time] Stat Lab 08/31/23 14:00 Completed Trop I [Troponin I] Stat Lab 08/31/23 14:00 Completed Troponin I Q3H Lab 08/31/23 18:02 Completed Troponin I Q3H Lab 08/31/23 20:15 Ordered UA [Urinalysis and Microscopic] Stat Lab 08/31/23 14:20 Completed Medical Decision Narrative: This is a 53-year-old male with history of hypertension, hyperlipidemia, CAD, CKD 3, CHF, BPH, renal artery stenosis and stenting, presenting with bright red blood per rectum in the setting of chronic abdominal pain. Patient states that he has had abdominal pain since May. He has been to numerous ERs try to work it up. Has also been sent to nephrology. Patient states that he has a stent in his renal artery because it was drinking. He states that he is on Xarelto because of his heart disease and he has been taking this as prescribed. Has had hematuria since following up with his urologist just a couple months ago. Has had cystoscopy, abdominal CTs, without much avail. Patient states that he is coming in with abdominal pain that is primarily epigastric/right upper quadrant, made worse with trying to eat meals. He states that when he tries to eat, he has food aversions. Has had weight loss since May as well. No fevers or chills. Also states that because of his weight loss, he was told he needed a colonoscopy. Had a colonoscopy just recently, over 20 polyps were removed. Patient started having bright red blood per rectum that started yesterday. He states that they are soft, equal amount blood in stool. History was obtained via conversation with patient and . On arrival, patient hemodynamically stable, alert, oriented x4, appropriate, GCS 15, moving all extremities spontaneously, pupils equal and reactive to light. Full physical exam performed and significant for chronically ill-appearing male in no acute distress. Abdomen is diffusely tender, but no evidence of peritonitis. Nondistended. No flank tenderness. No overlying skin changes. Differential includes pancreatitis, enteritis, SBO, cholecystitis, choledocholithiasis, appendicitis hepatitis, aortic pathology, mesenteric ischemia among others. Patient was given Toradol, morphine for symptomatic management and correction of underlying abnormalities. Workup independently interpreted and significant for mild leukocytosis 11. Nonactionable coags. Chemistry with stable CKD creatinine 1.5. Lactate negative at 0.8. LFTs nonactionable. Initial troponin negative. Urinalysis without concern for UTI, but he does have blood, which is known to patient. Right upper quadrant ultrasound normal. Patient feeling much better after Toradol and morphine. CTA of the abdomen pelvis pending at time of handoff to oncoming physician. DO Mukul: On my assessment, the patient is resting comfortably with improved symptoms. He states that overall he is feeling better. CT scan resulted and showed concerns for nonocclusive mesenteric artery stenosis. This could be the underlying source of the patient's symptoms, so I called and had an indirect discussion with Dr. Reid who advised that the patient is unlikely to have significant symptoms from this degree of stenosis after she reviewed the scan. She advised that he can follow-up closely outpatient. They should contact him with an appointment. They also advised that he may benefit from upper endoscopy, so I gave him information for referral to general surgery or information to follow-up with his lapidarist that he prefers. He was given prescription for PPI, instructions for close patient follow-up, strict return precautions, he was discharged in stable condition. Procedures <Bar Lopez MD - Last Filed: 08/31/23 15:40> Limited Ultrasound Indication:: Limited RUQ ultrasound Indication: Abdominal pain Identified structures: -Gallbladder -Gallbladder wall -Common bile duct -Liver Findings: Sonographic Laguerre sign: Absent Gallstones: Absent Sludge: Absent Pericholecystic fluid: Absent Maximal GB wall thickness (mm) (normal is </= 3mm): Normal Common bile duct width (mm) (normal is </= 6mm): Normal Gallbladder width (cm) (normal is < 4cm): Normal Gallbladder length (cm) (normal is < 10cm): Normal Impression: Normal right upper quadrant ultrasound Images were saved to permanent archive The study was technically adequate CPT 62805-40 This study was performed by me, and I personally interpreted all images/videos. Based on my clinical judgement, these images were adequate and didnot necessitate further imaging. Critical Care <Bar Lopez MD - Last Filed: 08/31/23 15:40> Critical Care Time Critical Care Time: No
--- NOTE | 2023-08-31 14:47 | PC.NURSE ---
Pt unable to provide stool sample
[2023-08-31 14:48] LABS: Bacteria,Urine 1+ /lpf; Bilirubin,Urine 1+ (Negative); Mucus,Urine 1+ /lpf; RBC,Urine 50-100 #/hpf (0-3)
[2023-08-31 14:49] LABS: Chloride 101 mmol/L (98-107); Potassium 4.2 mmoL/L (3.5-5.1); Sodium 135 mmol/L (136-145)
[2023-08-31 14:52] LABS: Alanine Aminotransferase 15 U/L (12-78); Albumin Level 4.2 g/dl (3.5-5.0); Albumin/Globulin Ratio 1.4 (1.1-1.8); Alkaline Phosphatase 171 U/L (38-126); Anion Gap 10.2 mEq/L (5-15); Aspartate Amino Transferase 31 U/L (17-59); Bilirubin,Total 0.9 mg/dl (0.2-1.3); Blood Urea Nitrogen 11 mg/dl (9-20); Calcium 9.4 mg/dl (8.4-10.2); Carbon Dioxide 28 mmol/L (22.0-30.0); Creatinine Clearance Estimated 71 mL/min (50-200); Estimated Glomerular Filt Rate 49 ml/min (>60); GFR (African American) 60 ML/MIN (>60); Globulin 2.9 g/dL (1.3-3.2); Glucose 107 mg/dl (74-100); Total Protein,Serum 7.1 g/dl (6.3-8.2)
--- NOTE | 2023-08-31 14:55 | PC.NURSE ---
Rounded on pt. No needs or complaints voiced a this time. Call light within reach
[2023-08-31 15:00] VITALS: BP 147/95; PULSE 61; O2SAT 96
--- NOTE | 2023-08-31 15:03 | PC.NURSE ---
Gone to CT
[2023-08-31 15:08] LABS: Troponin I < 0.01 ng/ml (0.00-0.034)
[2023-08-31 15:14] LABS: Hemoglobin 18.5 g/dL (14.1-18.0)
[2023-08-31] MEDS: 0.9 % SODIUM CHLORIDE 50 ML VIAL 40 ML IV (15:17)
[2023-08-31] MEDS: SODIUM CHLORIDE 0.9% 10ML SYR (RAD ONLY) 10 ML IV (15:17)
[2023-08-31 15:19] LABS: Lactic Acid 0.8 mmol/L (0.7-2.1)
[2023-08-31] MEDS: IOPAMIDOL-370 (76%);100ML BOTTLE 94 ML IV (15:19)
--- NOTE | 2023-08-31 15:26 | PC.NURSE ---
Pt back to room
[2023-08-31 15:31] VITALS: BP 160/88; PULSE 54; O2SAT 98
[2023-08-31 16:00] VITALS: BP 160/82; PULSE 53; O2SAT 97
[2023-08-31 16:07] LABS: Occult Blood,Stool Positive (Negative)
--- NOTE | 2023-08-31 17:46 | PC.NURSE ---
Called [facility] for Dr Gilman to speak with someonee in [facility] about this pt. Gave all the info to [facility] and they advised they would call us back
--- NOTE | 2023-08-31 18:31 | PC.NURSE ---
[facility] called back and is speaking with Dr Gilman at this time.
[2023-08-31 18:43] VITALS: BP 139/87; PULSE 53; RESP 15; TEMP 36.7; O2SAT 98
[2023-08-31 18:59] LABS: Troponin I < 0.01 ng/ml (0.00-0.034)
== END 2023-08-31 18:44 | disposition home or self-care (01) ==
PROVIDERS: Emergency Medicine; Emergency Provider Emergency Medicine; PCP Family Medicine
DX: K55.1 Chronic vascular disorders of intestine (principal); R10.30 Lower abdominal pain, unspecified; K92.1 Melena; I13.0 Hypertensive heart and chronic kidney disease with heart failure and stage 1 through stage 4 chronic kidney disease, or unspecified chronic kidney disease; I50.9 Heart failure, unspecified; E78.5 Hyperlipidemia, unspecified; I25.10 Atherosclerotic heart disease of native coronary artery without angina pectoris; N18.30 Chronic kidney disease, stage 3 unspecified; N40.0 Benign prostatic hyperplasia without lower urinary tract symptoms; F17.210 Nicotine dependence, cigarettes, uncomplicated; Z79.01 Long term (current) use of anticoagulants; D72.829 Elevated white blood cell count, unspecified
CPT/HCPCS: 36415; 74174; 80053; 81001; 82272; 83605; 84484; 85025; 85610; 85730; 96374; 96375; 99285; G0328; Q9967

== ENCOUNTER 2024-01-18 17:41 | Outpatient (CLI) | payer OTHER, SELFPAY ==
[2024-01-18 17:56] LABS: Microscopic, Urine URINE MICROSCOPIC (MICROSCOPIC)
[2024-01-18 18:23] LABS: Appearance,Urine CLEAR (Clear); Blood, Urine 3+ (Negative); Color,Urine YELLOW (Yellow); Glucose,Urine (UA) Negative (Negative); Ketones,Urine Negative (Negative); Leukocyte Esterase,Urine TRACE (Negative); Nitrate,Urine Negative (Negative); Protein,Urine TRACE (Negative); Specific Gravity, Urine 1.025 (1.005-1.030)
[2024-01-18 18:25] LABS: Bilirubin,Urine 1+ (Negative)
[2024-01-18 18:38] LABS: Hematocrit 51.4 % (42.0-52.0); Hemoglobin 17.3 g/dL (14.1-18.0); Mean Corpuscular HGB Conc 33.5 g/dL (31.8-35.4); Mean Corpuscular Hemoglobin 32.9 pg (27.0-31.2); Platelet Count 327 K/mm3 (142-424); Red Blood Count 5.25 M/mm3 (4.60-6.20); White Blood Count 11.6 K/mm3 (4.8-10.8)
[2024-01-18 18:43] LABS: WBC,Urine Occasional #/hpf (0-3)
[2024-01-18 18:44] LABS: Albumin Level 3.9 g/dl (3.5-5.0); Anion Gap 10.9 mEq/L (5-15); Blood Urea Nitrogen 9 mg/dl (9-20); Calcium 9.5 mg/dl (8.4-10.2); Carbon Dioxide 23 mmol/L (22.0-30.0); Chloride 104 mmol/L (98-107); Estimated Glomerular Filt Rate 53 ml/min (>60); GFR (African American) 65 ML/MIN (>60); Glucose 95 mg/dl (74-100); Phosphorous 3.5 mg/dl (2.5-4.5); Potassium 3.9 mmoL/L (3.5-5.1); Sodium 134 mmol/L (136-145)
[2024-01-18 18:49] LABS: Creatinine,Urine Random 321 mg/dL (Not Estab.)
== END 2024-01-18 23:59 | disposition home or self-care (01) ==
LOC: LAB.DROPOF 17:42
PROVIDERS: PCP Internal Medicine Nephrology; Visit Provider Internal Medicine Nephrology
DX: N18.30 Chronic kidney disease, stage 3 unspecified (principal)
CPT/HCPCS: 80069; 81001; 82570; 84156; 85014; 85018; 85048; 85049

== ENCOUNTER 2024-01-28 09:04 | Outpatient (POV) | payer OTHER, SELFPAY | END 2024-01-28 23:59 | disposition home or self-care (01) | LOC: SC 09:05 | PROVIDERS: Visit Provider Internal Medicine Nephrology | DX: Z00.00 Encounter for general adult medical examination without abnormal findings (principal) ==

== ENCOUNTER 2024-03-05 16:26 | Emergency (ER) | payer BC, SELFPAY ==
[2024-03-05 17:12] VITALS: BP 148/82; PULSE 68; RESP 16; TEMP 36.8; O2SAT 96; BMI 25.4
--- NOTE | 2024-03-05 17:18 | EXP.UTC ---
Discharge Plan Disposition Patient Disposition: Home, Self-Care Condition: Good Prescriptions Prescriptions: New erythromycin 5 mg/gram (0.5 %) ointment 0.5 inch ophthalmic (eye) QID 7 Days Qty: 3.5 0RF No Action isosorbide mononitrate 30 mg tablet extended release 24 hr 30 mg PO DAILY Patient Comments: TAKE 1 TABLET BY MOUTH ONCE DAILY IN THE MORNING tamsulosin [Flomax] 0.4 mg capsule 0.4 mg PO DAILY Qty: 30 3RF docusate sodium 100 mg capsule 400 mg PO ONCE Qty: 4 0RF Rx Instructions: Take 2 days before colonoscopy around 3 PM. Followed by 1 bottle of mag citrate. Follow that by 10 to 12 ounces of water magnesium citrate Solution 296 ml PO DAILY Qty: 296 0RF Rx Instructions: Take 2 days before colonoscopy around 3 PM with the Colace tabs atorvastatin 80 MG tablet 80 mg PO DAILY carvedilol 25 MG tablet 25 mg PO BID aspirin 81 MG tablet,chewable 81 mg PO DAILY Xarelto 2.5 mg tablet 2.5 mg PO DAILY Patient Comments: TAKE 1 TABLET BY MOUTH TWICE DAILY FOR 30 DAYS pantoprazole 40 mg tablet,delayed release (DR/EC) 40 mg PO DAILY Qty: 30 0RF Referrals Follow up/Referrals: Rohan Lam MD [Primary Care Provider] - See instructions Activity Restrictions/Add. Instructions Additional Instructions/Restrictions: Use the eye ointment as directed. Use the erythromycin ointment as directed. Follow up with your eye doctor. Follow up with your regular doctor. GO TO THE ER FOR ANY WORSENING SYMPTOMS OR CONCERNS Clinical Impressions Clinical Impression: Right cornea abrasion, Hordeolum externum of right eye Stand Alone Forms Stand Alone Forms: Work/School Release Instructions Patient Instructions: DI for Corneal Abrasion, Erythromycin Ophthalmic Print Language Print Language: Khmer Discharge ED Provider: Abdias Harmon [facility] [place] General Stated complaint: right eye swollen and red Mode of Arrival: Ambulatory Source of Information: Patient Limitations: No Limitations Time Seen by Provider: 03/05/24 17:18 HEENT Symptoms (Recalled from RN notes): Yes Resp Symptoms (Recalled from RN notes): No Skin Symptoms (Recalled from RN notes): No MS Symptoms (Recalled from RN notes): No Functional Status (Recalled from RN notes): wnl History of Present Illness Provider Complaint: He states that since yesterday he has had right eye irritation and redness. He states that he works at [employer] and he may have got something in it. Related Data Home Medications ?Medication ?Instructions ?Recorded ?Confirmed aspirin 81 mg chewable tablet 81 mg PO DAILY heart 10/19/17 09/23/23 atorvastatin 80 mg tablet 80 mg PO DAILY Cholesterol 10/19/17 09/23/23 carvedilol 25 mg tablet 25 mg PO BID Heart 10/19/17 09/23/23 rivaroxaban 2.5 mg tablet (Xarelto) 2.5 mg PO DAILY 06/24/23 09/23/23 isosorbide mononitrate 30 mg 30 mg PO DAILY 08/02/23 09/23/23 tablet,extended release 24 hr Previous Rx's ?Medication ?Instructions ?Recorded tamsulosin 0.4 mg capsule (Flomax) 0.4 mg PO DAILY #30 caps 08/02/23 pantoprazole 40 mg tablet,delayed 40 mg PO DAILY #30 tabs 08/31/23 release docusate sodium 100 mg capsule 400 mg (4 x 100 mg) PO ONCE 09/23/23 Extended colonoscopy prep for poor previous prep #4 caps magnesium citrate 296 ml PO DAILY #296 mL 09/23/23 erythromycin 5 mg/gram (0.5 %) eye 0.5 inch ophthalmic (eye) QID 7 03/05/24 ointment days #3.5 grams Allergies Allergy/AdvReac Type Severity Reaction Status Date / Time lisinopril Allergy Verified 09/23/23 14:34 Worker's Comp Is this a Worker's Comp case?: No [facility] Disclaimer: The information contained in this section may have been updated after the patient was seen, as this information can be updated by other users. Medical History (Updated 03/05/24 @ 17:52 by Abdias Harmon APRN) Nausea Hx of nephrolithotomy with removal of calculi BPH (benign prostatic hyperplasia) Hyperlipidemia Acute renal failure History of kidney stones Hypertension History of HI (myocardial infarction) Surgical History History of renal stent H/O umbilical hernia repair Family History Father Diabetes Other Enlarged prostate Social History (Updated 09/23/23 @ 14:36 by Rica Keith, JILLIAN) Smoking Status: Current every day smoker tobacco type: cigarettes packs per day: 1 alcohol intake: never substance use type: former substance user and marijuana current occupational status: employed Travel in the last 8 weeks: None household members: spouse, significant other, family and children housing: house 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 current occupational exposures/hazards: Yes caffeine: Yes do you feel safe at home: Yes victim of physical abuse: No victim of emotional abuse: No victim of sexual abuse: No would you like helpful sources: No ROS Obtained: Yes All systems reviewed & no additional complaints except as documented Constitutional Constitutional: Denies chills and Denies fever(s) Eyes Eyes: Reports as per HPI, Denies change in vision and Reports eye discharge ENT Ears, Nose, Mouth, and Throat: Denies dizziness, Denies otalgia and Denies sore throat Cardiovascular Cardiovascular: Denies chest pain Respiratory Respiratory: Denies shortness of breath, Denies chest congestion, Denies cough, Denies stridor and Denies wheezing Gastrointestinal Gastrointestingal: Denies nausea or vomiting Musculoskeletal Musculoskeletal: Reports system reviewed and no additional complaints, except as documented and Denies arthralgias Integumentary/Breasts Skin/Breast: Denies rash Neurologic Neurologic: Denies dizziness and Denies paresthesias Allergic/Immunologic Allergic/Immunologic: Denies wheezing Physical Exam General General appearance: alert and in no apparent distress Head Head exam: atraumatic, normocephalic and normal inspection Eye Eye exam: Present PERRL and EOMI Expanded Eye Exam Eyelids: left: normal inspection and right: erythema and stye Pupils: Left: size (2), Right: size (2) and Bilateral: regular, round and reactive Sclera/Conjunctival: left: normal inspection and right: injection and exudate ENT ENT exam: Present normal exam, normal oropharynx, mucous membranes moist, TM's normal bilaterally and normal external ear exam Neck Neck exam: Present normal inspection, full ROM and trachea midline; Absent meningismus or lymphadenopathy Chest Chest inspection: Present normal inspection and symmetric chest wall rise; Absent tenderness Respiratory Respiratory exam: Present normal lung sounds bilaterally; Absent respiratory distress Cardiovascular Cardiovascular exam: Present regular rate and normal rhythm; Absent JVD Abdominal Exam Abdominal exam: Present soft and normal bowel sounds; Absent distention, tenderness or guarding Extremities Exam Extremities exam: Present normal inspection, full ROM and normal capillary refill; Absent calf tenderness Back Exam Back exam: Present normal inspection; Absent tenderness Neurological Exam Neurological exam: Present alert and oriented X3 Psychiatric Psychiatric exam: Present normal affect and normal mood Skin Skin exam: Present warm, dry, intact and normal color Lymphatic Lymphatic Findings: no adenopathy Medical Decision Making Medical Records Screening: Per USPSTF and CDC recommendations, given the prevalence of disease in our region, it is our hospital?s policy to screen for HIV and viral Hepatitis for all patients aged 18 and over and those with ongoing risk factors. [place] Inquiry Pt receiving controlled substance: No Vital Signs: 03/05/24 17:12 Temperature 98.2 F Temperature Source Oral Pulse Rate [Radial] 68 Respiratory Rate 16 Blood Pressure [Right Arm] 148/82 H Blood Pressure Mean [Right Arm] 104 Blood Pressure Source [Right Arm] Automatic Cuff Blood Pressure Position [Right Arm] Sitting 02 Sat by Pulse Oximetry 96 Oxygen Delivery Method Room Air Medical Decision Narrative: He states that his tdap is up to date. Procedures Risk/Benefits of Procedure(s) Were Explained: Yes Eye Exam/FB Removal Location: eye (R) Topical anesthetic used: tetracaine Fluorescein Stick(s) used: Yes Time Out performed: Yes Procedure performed under: direct visualization with magnification Foreign body: other (none) Evidence of corneal penetration: No Technique: irrigation Post-procedure medication: ophthalmic antibiotic Eye irrigated w/saline (#ccs): 25 Patient tolerated procedure: well and no complications (He tolerated this well, a small corneal abrasion is noted at the 6:00 area on his cornea. )
[2024-03-05 18:03] VITALS: BP 148/82; PULSE 68; RESP 16; TEMP 36.8; O2SAT 96
== END 2024-03-05 18:04 | disposition home or self-care (01) ==
PROVIDERS: Emergency Provider Nurse Practitioner Family; PCP Family Medicine
DX: S05.01XA Injury of conjunctiva and corneal abrasion without foreign body, right eye, initial encounter (principal); H00.013 Hordeolum externum right eye, unspecified eyelid; W22.8XXA Striking against or struck by other objects, initial encounter; W44.F0XA Objects of natural or organic material unspecified, entering into or through a natural orifice, initial encounter
CPT/HCPCS: 99212; 99214; G0463

== ENCOUNTER 2024-08-30 11:52 | Emergency (ER) | payer BC, SELFPAY ==
[2024-08-30 11:54] VITALS: BP 171/86; PULSE 70; RESP 18; TEMP 36.6; O2SAT 100; BMI 25.7
--- NOTE | 2024-08-30 12:01 | ED_ITS ---
Discharge Plan Disposition Patient Disposition: Home, Self-Care Condition: Good Prescriptions Prescriptions: New ediywawgavracrv-hgvszijoe-HT [Bromfed DM] 2-30-10 mg/5 mL syrup 5 ml PO Q4H PRN (Reason: sinus symptoms) Qty: 118 0RF No Action isosorbide mononitrate 30 mg tablet extended release 24 hr 30 mg PO DAILY Patient Comments: TAKE 1 TABLET BY MOUTH ONCE DAILY IN THE MORNING tamsulosin [Flomax] 0.4 mg capsule 0.4 mg PO DAILY Qty: 30 3RF docusate sodium 100 mg capsule 400 mg PO ONCE Qty: 4 0RF Rx Instructions: Take 2 days before colonoscopy around 3 PM. Followed by 1 bottle of mag citrate. Follow that by 10 to 12 ounces of water magnesium citrate Solution 296 ml PO DAILY Qty: 296 0RF Rx Instructions: Take 2 days before colonoscopy around 3 PM with the Colace tabs sodium,potassium,mag sulfates [Suprep Bowel Prep Kit] 17.5-3.13-1.6 gram recon soln See Rx Instructions PO .COMPLEX Qty: 354 0RF Rx Instructions: DILUTE; drink full amount early evening before AND next morning at least 2 hr before procedure; follow w 960 mL water PO atorvastatin 80 MG tablet 80 mg PO DAILY carvedilol 25 MG tablet 25 mg PO BID aspirin 81 MG tablet,chewable 81 mg PO DAILY Xarelto 2.5 mg tablet 2.5 mg PO DAILY Patient Comments: TAKE 1 TABLET BY MOUTH TWICE DAILY FOR 30 DAYS pantoprazole 40 mg tablet,delayed release (DR/EC) 40 mg PO DAILY Qty: 30 0RF erythromycin 5 mg/gram (0.5 %) ointment 0.5 inch ophthalmic (eye) QID 7 Days Qty: 3.5 0RF Referrals Follow up/Referrals: Rohan Lam MD [Primary Care Provider] - See instructions Activity Restrictions/Add. Instructions Additional Instructions/Restrictions: I have sent a medicine in to help you with your cough and congestion symptoms. Also recommend continue taking Tylenol alternating 4 hours with Motrin for symptomatic and supportive care. If you have continued new or worsening signs or symptoms follow-up with your PCP return to the ER as needed. Clinical Impressions Clinical Impression: Respiratory tract infection Stand Alone Forms Stand Alone Forms: Work/School Release Print Language Print Language: Faroese Discharge ED Provider: Meet Gaitan General Adult HPI <JACIEL Kelly - Last Filed: 08/30/24 13:16> General Chief complaint: Upper Respiratory Infection Stated complaint: weakness, body aches, fever Time Seen by Provider: 08/30/24 12:01 Mode of Arrival: Ambulatory Source of Information: Patient Description of Symptoms (Recalled from ER Triage Doc. by RN): Pt states he has been feeling under the weather for a few days. Pt states he has had bodyaches, chills, productive cough, headache and nausea. Pt states he has had sx for a few days. Pt states he took tylenol this AM for his headache. History of Present Illness HPI narrative: Patient presents for evaluation of cough congestion sore throat body aches. Patient states symptoms been going on for a couple of days. 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 Patient however denies chest pain shortness of breath fever chills hemoptysis hematochezia melena nausea vomit diarrhea. Patient reports that he subjectively feels like he has had a fever but has not taken his temperature at home. Related Data Home Medications ?Medication ?Instructions ?Recorded ?Confirmed aspirin 81 mg chewable tablet 81 mg PO DAILY heart 10/19/17 09/23/23 atorvastatin 80 mg tablet 80 mg PO DAILY Cholesterol 10/19/17 09/23/23 carvedilol 25 mg tablet 25 mg PO BID Heart 10/19/17 09/23/23 rivaroxaban 2.5 mg tablet (Xarelto) 2.5 mg PO DAILY 06/24/23 09/23/23 isosorbide mononitrate 30 mg 30 mg PO DAILY 08/02/23 09/23/23 tablet,extended release 24 hr Previous Rx's ?Medication ?Instructions ?Recorded tamsulosin 0.4 mg capsule (Flomax) 0.4 mg PO DAILY #30 caps 08/02/23 pantoprazole 40 mg tablet,delayed 40 mg PO DAILY #30 tabs 08/31/23 release docusate sodium 100 mg capsule 400 mg (4 x 100 mg) PO ONCE 09/23/23 Extended colonoscopy prep for poor previous prep #4 caps magnesium citrate 296 ml PO DAILY #296 mL 09/23/23 erythromycin 5 mg/gram (0.5 %) eye 0.5 inch ophthalmic (eye) QID 7 03/05/24 ointment days #3.5 grams sodium,potassium,mag sulfates 17.5 See Rx Instructions PO .COMPLEX 03/27/24 gram-3.13 gram-1.6 gram oral soln #354 mL (Suprep Bowel Prep Kit) arlxbucqbzjjont-utepwohisdopqzv-SG 5 ml PO Q4H PRN sinus symptoms 08/30/24 2 mg-30 mg-10 mg/5 mL oral syrup #118 mL (Bromfed DM) Allergies Allergy/AdvReac Type Severity Reaction Status Date / Time lisinopril Allergy Rash Verified 08/30/24 12:22 [facility] <JCAIEL Kelly - Last Filed: 08/30/24 13:16> [facility] Disclaimer: The information contained in this section may have been updated after the patient was seen, as this information can be updated by other users. Medical History (Updated 08/30/24 @ 13:16 by JACIEL Kelly) Nausea Hx of nephrolithotomy with removal of calculi BPH (benign prostatic hyperplasia) Hyperlipidemia Acute renal failure History of kidney stones Hypertension History of MO (myocardial infarction) Surgical History History of renal stent H/O umbilical hernia repair Family History Father Diabetes Other Enlarged prostate Social History Smoking Status: Current every day smoker tobacco type: cigarettes packs per day: 1 alcohol intake: never substance use type: former substance user and marijuana current occupational status: employed Travel in the last 8 weeks: None household members: spouse, significant other, family and children housing: house 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 current occupational exposures/hazards: Yes caffeine: Yes do you feel safe at home: Yes victim of physical abuse: No victim of emotional abuse: No victim of sexual abuse: No would you like helpful sources: No Have you lived/traveled outside [place] in past 30 days?: No Contact w/someone who lives/traveled outside US past 30 days?: No Exposure to someone with infectious disease in past 14 days?: No Do you have a fever (greater than 100.4 F or 38 C)?: Yes Have you tested positive for COVID-19: No Exposed to someone with COVID-19 in past 14 days?: No Do you have a sore throat?: No Do you have a cough?: No Do you have any weakness?: Yes Do you have any diarrhea?: No Are you experiencing any unusual bleeding?: No Do you have any muscle aches/pain?: Yes Do you have any abdominal pain?: No Are you experiencing loss of taste or smell?: No Other Medical History Have you received the Flu Vaccine for this season: No Have you received the Pneumonia Vaccine: No <JACIEL Kelly - Last Filed: 08/30/24 13:16> ROS Obtained: Yes Systems reviewed as appropriate & no additional complaints except as documented Physical Exam <JACIEL Kelly - Last Filed: 08/30/24 13:16> General General appearance: alert and in no apparent distress Respiratory Respiratory exam: Present normal lung sounds bilaterally Cardiovascular Cardiovascular exam: Present regular rate Neurological Exam Neurological exam: Present alert and oriented X3 Medical Decision Making <JACIEL Kelly - Last Filed: 08/30/24 13:16> Medical Records Medical records reviewed: Yes I reviewed the patient's medical records. Screening: Per USPSTF and CDC recommendations, given the prevalence of disease in our region, it is our hospital?s policy to screen for HIV and viral Hepatitis for all patients aged 18 and over and those with ongoing risk factors. [place] Inquiry Pt receiving controlled substance: No Vital Signs: 08/30/24 11:54 08/30/24 12:14 08/30/24 12:30 Temperature 97.9 F Temperature Source Oral Pulse Rate 71 72 Pulse Rate [Right] 70 Respiratory Rate 18 Blood Pressure 155/79 H 141/81 H Blood Pressure [Right Arm] 171/86 H Blood Pressure Mean [Right Arm] 114 Blood Pressure Source Blood Pressure Source [Right Arm] Automatic Cuff Blood Pressure Position Blood Pressure Position [Right Arm] Sitting 02 Sat by Pulse Oximetry 100 98 98 Oxygen Delivery Method Nasal Cannula 08/30/24 12:45 08/30/24 13:34 Temperature 98 F Temperature Source Oral Pulse Rate 63 61 Pulse Rate [Right] Respiratory Rate 15 Blood Pressure 146/81 H 149/78 H Blood Pressure [Right Arm] Blood Pressure Mean [Right Arm] Blood Pressure Source Automatic Cuff Blood Pressure Source [Right Arm] Blood Pressure Position Supine Blood Pressure Position [Right Arm] 02 Sat by Pulse Oximetry 95 Oxygen Delivery Method Room Air Lab Data Lab results reviewed: Yes I reviewed the patient's lab results. Lab Results 08/30/24 12:00: SARS-CoV-2 (PCR) Not detected, Influenza A Untype (PCR) Not detected, Influenza Type B (PCR) Not detected 08/30/24 12:12: HCV Ab NAGI w/Rflx PCR Qn Negative, HIV Ag/Ab Combo Qual Negative Orders (Tests/Meds): ED MEDICATIONS Discontinued Medications Generic Name Dose Route Start Last Admin Trade Name Freq PRN Reason Stop Dose Admin Acetaminophen 1,000 mg 08/30/24 12:12 08/30/24 12:25 Acetaminophen 500mg Tab PO 08/30/24 12:13 1,000 mg ONCE ONE Administration Ibuprofen 800 mg 08/30/24 12:12 08/30/24 12:25 Ibuprofen 400 Mg Tablet PO 08/30/24 12:13 800 mg ONCE ONE Administration ORDERS Category Date Time Status Chest XR 2 view (NOT portable) [XR chest 2V] Stat Exams 08/30/24 12:12 Com pleted HIV Combo Stat Lab 08/30/24 12:12 Completed Hepatitis C Ab Qual. W/ RFX Stat Lab 08/30/24 12:12 Completed Rapid PCR Covid and Flu A/B Stat Lab 08/30/24 12:00 Completed Medical Decision Narrative: In summary patient is a 54-year-old male who presents to the emergency department for evaluation of cough congestion body aches sore throat. Patient is hemodynamically stable but slightly elevated blood pressure 171/96 pulse 70 with normal sinus rhythm on the bedside monitor breathing 18 times a minute satting at 100% room air upon arrival, afebrile at 97.9. Physical exam is remarkable for erythematous posterior pharynx however there is no exudate. Breath sounds are clear and equal bilaterally to the bases without adventitious sounds or increased work of breathing.. Differential diagnosis includes upper or lower respiratory tract infection versus possible pneumonia. Initial workup will be conducted with COVID flu swabs plain film chest x-ray given his high risk environment. Initial interventions include Tylenol and ibuprofen. Initial workup reviewed by me my informal interpretation of his plain film chest x-ray actually shows no acute infiltrate or abnormality of his plain film chest x-ray and his COVID and flu swabs are negative,. Upon repeat evaluation objective improvement after Tylenol and ibuprofen. Given this patient is appropriate for discharge with prescription for Bromfed sent to his pharmacy and follow-up with his PCP for any continued new or worsening signs or symptoms. <Meet Gaitan MD - Last Filed: 08/30/24 20:54> Vital Signs: 08/30/24 11:54 08/30/24 12:14 08/30/24 12:30 Temperature 97.9 F Temperature Source Oral Pulse Rate 71 72 Pulse Rate [Right] 70 Respiratory Rate 18 Blood Pressure 155/79 H 141/81 H Blood Pressure [Right Arm] 171/86 H Blood Pressure Mean [Right Arm] 114 Blood Pressure Source Blood Pressure Source [Right Arm] Automatic Cuff Blood Pressure Position Blood Pressure Position [Right Arm] Sitting 02 Sat by Pulse Oximetry 100 98 98 Oxygen Delivery Method Nasal Cannula 08/30/24 12:45 08/30/24 13:34 Temperature 98 F Temperature Source Oral Pulse Rate 63 61 Pulse Rate [Right] Respiratory Rate 15 Blood Pressure 146/81 H 149/78 H Blood Pressure [Right Arm] Blood Pressure Mean [Right Arm] Blood Pressure Source Automatic Cuff Blood Pressure Source [Right Arm] Blood Pressure Position Supine Blood Pressure Position [Right Arm] 02 Sat by Pulse Oximetry 95 Oxygen Delivery Method Room Air Lab Data Lab Results 08/30/24 12:00: SARS-CoV-2 (PCR) Not detected, Influenza A Untype (PCR) Not detected, Influenza Type B (PCR) Not detected 08/30/24 12:12: HCV Ab NAGI w/Rflx PCR Qn Negative, HIV Ag/Ab Combo Qual Negative Orders (Tests/Meds): ED MEDICATIONS Discontinued Medications Generic Name Dose Route Start Last Admin Trade Name Freq PRN Reason Stop Dose Admin Acetaminophen 1,000 mg 08/30/24 12:12 08/30/24 12:25 Acetaminophen 500mg Tab PO 08/30/24 12:13 1,000 mg ONCE ONE Administration Ibuprofen 800 mg 08/30/24 12:12 08/30/24 12:25 Ibuprofen 400 Mg Tablet PO 08/30/24 12:13 800 mg ONCE ONE Administration ORDERS Category Date Time Status Chest XR 2 view (NOT portable) [XR chest 2V] Stat Exams 08/30/24 12:12 Completed HIV Combo Stat Lab 08/30/24 12:12 Completed Hepatitis C Ab Qual. W/ RFX Stat Lab 08/30/24 12:12 Completed Rapid PCR Covid and Flu A/B Stat Lab 08/30/24 12:00 Completed Medical Decision Narrative: In summary patient is a 54-year-old male who presents to the emergency department for evaluation of cough congestion body aches sore throat. Patient is hemodynamically stable but slightly elevated blood pressure 171/96 pulse 70 with normal sinus rhythm on the bedside monitor breathing 18 times a minute satting at 100% room air upon arrival, afebrile at 97.9. Physical exam is remarkable for erythematous posterior pharynx however there is no exudate. Breath sounds are clear and equal bilaterally to the bases without adventitious sounds or increased work of breathing.. Differential diagnosis includes upper or lower respiratory tract infection versus possible pneumonia. Initial workup will be conducted with COVID flu swabs plain film chest x-ray given his high risk environment. Initial interventions include Tylenol and ibuprofen. Initial workup reviewed by me my informal interpretation of his plain film chest x-ray actually shows no acute infiltrate or abnormality of his plain film chest x-ray and his COVID and flu swabs are negative,. Upon repeat evaluation objective improvement after Tylenol and ibuprofen. Given this patient is appropriate for discharge with prescription for Bromfed sent to his pharmacy and follow-up with his PCP for any continued new or worsening signs or symptoms. I was consulted by the MARTY, and we discussed the complexity of the problems being addressed. I approve the treatment and management plan for this patient's care in the emergency department, thus performing a substantive portion of the medical decision making. Meet Gaitan MD Critical Care <JACIEL Kelly - Last Filed: 08/30/24 13:16> Critical Care Time Critical Care Time: No
[2024-08-30 12:07] LABS: Coronavirus 19, PCR Not Detected (NotDetected); Influenza A, PCR Not Detected (NotDetected); Influenza B, PCR Not Detected (NotDetected)
--- NOTE | 2024-08-30 12:12 | XR_ITS ---
FINAL REPORT CLINICAL HISTORY: Cough congestion shortness of breath COMPARISON: 08/25/2021 FINDINGS: PA and lateral views of the chest were obtained. The lungs are clear. There is a tiny right pleural effusion. The mediastinum has a normal appearance. The cardiac silhouette is unremarkable. IMPRESSION: Tiny right pleural effusion. Reviewed, Interpreted and Dictated by Margaux Slater MD Transcribed by Rica Issa Authenticated and [facility]
[2024-08-30 12:14] VITALS: BP 155/79; PULSE 71; O2SAT 98
--- NOTE | 2024-08-30 12:20 | PC.NURSE ---
patient brought to er room 8, alert oriented x4, he is reporting sore throat, runny nose, nausea, and weak. he states the last time he felt this bad he had double pneumonia and a heart attack.
[2024-08-30] MEDS: ACETAMINOPHEN 500MG TAB 1000 MG PO (12:25)
[2024-08-30] MEDS: IBUPROFEN 400 MG TABLET 800 MG PO (12:25)
[2024-08-30 12:30] VITALS: BP 141/81; PULSE 72; O2SAT 98
[2024-08-30 12:45] VITALS: BP 146/81; PULSE 63; O2SAT 95
[2024-08-30 13:34] VITALS: BP 149/78; PULSE 61; RESP 15; TEMP 36.6
[2024-08-30 13:43] LABS: HIV Combo NEGATIVE (Negative)
[2024-08-30 13:50] LABS: Hepatitis C Ab Qual. W/ RFX NEGATIVE (Negative)
== END 2024-08-30 13:34 | disposition home or self-care (01) ==
PROVIDERS: Emergency Provider Student in an Organized Health Care Education/Training Program; PCP Family Medicine
DX: J98.8 Other specified respiratory disorders (principal); R50.9 Fever, unspecified; R51.9 Headache, unspecified; R05.8 Other specified cough; R09.81 Nasal congestion; M79.10 Myalgia, unspecified site; J02.9 Acute pharyngitis, unspecified; R11.0 Nausea; R53.1 Weakness; F17.210 Nicotine dependence, cigarettes, uncomplicated
CPT/HCPCS: 71046; 86803; 87389; 87636; 93005; 99283

== ENCOUNTER 2025-02-06 17:35 | Outpatient (CLI) | payer BC, SELFPAY ==
--- OUTSIDE RECORDS SUMMARY | 2024-07-31 13:00 | XMS_ITS ---
[facility] [address] [id number] Care Team Providers Care Assessment Rn Name Role Phone Rohan Lam Primary Care Provider [phone] Allergies Allergen (clinical drug ingredient) Drug/Non Drug Allergy documented on EMR Reaction Allergy Type Onset Date Status lisinopril Lisinopril Unknown Drug Allergy Activ e Results Component Value Reference Range Notes Urinalysis - Inhouse Reviewed date:08/01/2024 08:26:27 AM Interpretation: Performing Lab: Notes/Report: Color/Clarity yellow/clear Leuk Neg Nitrite Neg Urobili 3.2 Protein 1+ pH 6.0 Blood 2+ Sp. Gr. 1.020 Ketone Trace Bili Neg Gluc Neg CBC Venipuncture (in house) Reviewed date:08/02/2024 03:09:23 PM Interpretation: Normal Performing Lab: Notes/Report: Normal wbc 10.0 3.5 - 10 lymph 21.5% 15 - 50 mid 5.3% 2 - 15 gran 73.2% 35 - 80 rbc 5.53 3.5 - 5.5 hgb 16.8 11.5 - 16.5 hct 50.6 35 - 55 mcv 91.4 75 - 100 mch 30.4 25 - 35 mchc 33.3 31 - 38 platlet 400 100 - 400 P-Vitamin B12 Reviewed date:08/02/2024 03:09:23 PM Interpretation:276 Performing Lab: Notes/Report: Test performed by [facility] [address] [place] [address] , [address], [place] [address] Shorty Fishman MD, District Sales Representative CLIA: [id number] Vitamin B12 [phone] pg/mL P-Comprehensive Metabolic Pa rodri (CMP) Reviewed date:08/02/2024 03:09:23 PM Interpretation:Cr 1.32, alk phos 146 Performing Lab: Notes/Report: Test performed by [facility] [address] [place] [address] , [address], [place] [address] Shorty Fishman MD, District Sales Representative CLIA: [id number] Sodium 137 135-145 mmol/L Potassium 4.9 3.5-5.3 mmol/L Chloride 99 97-108 mmol/L CO2 26 22-32 mmol/L Glucose 90 65-99 mg/dL BUN 9 6-20 mg/dL Creatinine 1.32 0.70-1.30 mg/dL Calcium 9.2 8.6-10.4 mg/dL eGFR by Creatinine 65 >59 mL/min/1.73m2 Protein 6.1 6.0-8.3 g/dL Albumin 3.9 3.5-5.3 g/dL Alkaline Phosphatase 146 40-129 IU/L ALT (SGPT) 8 <5-55 IU/L AST (SGOT) 18 <5-46 IU/L Bilirubin, Total 0.3 <0.2-1.2 mg/dL A/G Ratio 1.8 1.1-2.5 X-Z-Phcahrnd Protein (CRP) Reviewed date:08/02/2024 03:09:23 PM Interpretation: Normal Performing Lab: Notes/Report: Test performed by [facility] [address] [place] [address] , [address], [place] [address] Shorty Fishman MD, District Sales Representative CLIA: [id number] C-Reactive Protein (CRP) 0.28 <0.50 mg/dL P-Sed Rate (ESR) Reviewed date:08/02/2024 03:09:23 PM Interpretation:23 Performing Lab: Notes/Report: Test performed by [facility] [address] [place] [address] , [address], [place] [address] Shorty Fishman MD, District Sales Representative CLIA: [id number] Erythrocyte Sedimentation Rate (ESR), Automated 23 <21 mm/hr P-Magnesium Reviewed date:08/02/2024 03:09:23 PM Interpretation: Normal Performing Lab: Notes/Report: Test performed by [facility] [address] , [address], [place] [address] Shorty Fishman MD, District Sales Representative CLIA: [id number] Magnesium 2.4 1.6-2.4 mg/dL P-Phosphorus Reviewed date:08/02/2024 03:09:23 PM Interpretation: Normal Performing Lab: Notes/Report: Test performed by [facility] , [address], [place] [address] Shorty Fishamn MD, District Sales Representative CLIA: [id number] Phosphorus 3.2 2.5-4.5 mg/dL P-PSA Free and Total Reviewed date:08/02/2024 03:09:23 PM Interpretation: Normal Performing Lab: Notes/Report: Test performed by [facility] [address] , [address], [place] [address] Shorty Fishman MD, District Sales Representative CLIA: [id number] PSA 3.43 <4.00 ng/mL Please note this is an ultrasensitive PSA assay with a lower limit of detection of 0.014 ng/mL. This test is performed by the [employer] ECLIA methodology. Values obtained with different assay methods or kits cannot be directly compared. PSA Free 0.57 This test is performed by the [employer] ECLIA methodology. Values obtained with different assay methods or kits cannot be directly compared. fPSA, PCT 16.62 PROBABILITY OF PROSTATE CANCER (For Men with Non-suspicious TARA Results and PSA Between 4 and 10 ng/ml, by Patient Age) % Free PSA PATIENT AGE 50 to 64 Years 65 to 75 Years 0.00 to 10.00% 56% 55% 10.01 to 15.00% 24% 35% 15.01 to 20.00% 17% 23% 20.01 to 25.00% 10% 20% > / = 25.01% 5% 9% P-TSH reflex to FT4 Reviewed date:08/02/2024 03:09:23 PM Interpretation: Normal Performing Lab: Notes/Report: Test performed by [facility] [address] , [place] [address] Shorty Fishman MD, District Sales Representative CLIA: [id number] TSH reflex to FT4 4.09 0.43-5.25 mU/L P-Vitamin D 25-Hydroxy Reviewed date:08/02/2024 03:09:23 PM Interpretation: Normal Performing Lab: Notes/Report: Test performed by [facility] [address] [place] [address] , [address], [place] [address] Shorty Fishman MD, District Sales Representative CLIA: [id number] Vitamin D 25-Hydroxy 13.1 30.0-100.0 ng/mL Interpretation of Vitamin D 25 OH: < 20 ng/mL - Deficiency 20 - 29 ng/mL - Insufficiency 30 - 100 ng/mL - Sufficiency > 100 ng/mL - Super-therapeutic- toxicity may occur above this level. Clinical correlation required. REASON FOR VISIT discuss weight loss Medications Medication SIG (Take, Route, Frequency, Duration) Notes Start Date End Date Status Atorvastatin Calcium 80 MG 1 tab(s) oral ly once a day; Duration: 30 days Active Xarelto 2.5 MG 1 tab(s) orally 2 ti mes a day; Duration: 30 days Active Aspirin Adult Low Dose 81 MG 1 tab(s) orally once a day; Duration: 30 days Active Tamsulosin HCl 0.4 MG 1 capsule Orally O nce a day; Duration: 30 days Active Metoprolol Succinate 50 MG 1 capsule Ora lly Once a day; Duration: 30 days Active Vital Signs Blood pressure systolic 160 mm Hg 07/31/19 25 Blood pressure diastolic 94 mm Hg 025 Heart Rate 65 /min 07/31/2024 Height 72 in 07/31/2024 Weight 182.4 lbs 07/31/2024 BMI 24.74 kg/m2 07/31/2024 Encounters Encounter Location Date Provider Diagnosis [facility] [address] [place], [place] [id number] 07/31/2024 Rohan Ballinger Periumbilical abdomi nal pain R10.33 ; BRBPR (bright red blood per rectum) K62.5 ; Weight loss, unintentional R63.4 ; Fatigue, unspecified type R53.83 ; Elevated PSA R97.20 ; Prostate cancer screening Z12.5 ; Essential hypertension I10 ; Coronary artery disease involving [place] coronary artery of [place] heart without angina pectoris I25.10 and Hyperlipidemia, unspecified hyperlipidemia type E78.5 Assessments Encounter Date Diagnosis (ICD Code) Assessment Notes Treatment Notes Treatment Clinical Notes Section Notes 07/31/2024 Periumbilical abdominal pain (ICD-10 - R10.33) 07/31/2024 BRBPR (bright red blood per rectum) (ICD-10 - K62.5) 07/31/2024 Weight loss, unintentional (ICD-10 - R63.4) 07/31/2024 Fatigue, unspecified type (ICD-10 - R53.83) 07/31/2024 Elevated PSA (ICD-10 - R97.20) 07/31/2024 Prostate cancer screening (ICD-10 - Z12.5) 07/31/2024 Essential hypertension (ICD-10 - I10) 07/31/2024 Coronary artery disease involving [place] coronary artery of [place] heart without angina pectoris (ICD-10 - I25.10) 07/31/2024 Hyperlipidemia, unspecified hyperlipidemia type (ICD-10 - E78.5) Plan Of Treatment Medication Medication Name Sig Start Date Stop Date Notes Atorvastatin Calcium 80 MG 1 tab(s) oral ly once a day; Duration: 30 days Xarelto 2.5 MG 1 tab(s) orally 2 ti mes a day; Duration: 30 days Aspirin Adult Low Dose 81 MG 1 tab(s) or ally once a day; Duration: 30 days Tamsulosin HCl 0.4 MG 1 capsule Orally O nce a day; Duration: 30 days Metoprolol Succinate 50 MG 1 capsule Ora lly Once a day; Duration: 30 days Pending Test Test Name Order Date P-Microalbumin/Creatinine, Random Urine Sample 07/31/2024 Next Appt Details Follow Up: via phone to repo rt test results, Reason: Progress Notes * MU DAVILADOB:1970 (54 yo M)Acc No.[id number]:07/31/2024 Progress Notes Patient: MU HOWARD Provider: Fab Lam M.D. :1970 A ge:54 Y S ex:Male Date:07/31/2024 Address:[address] [place] [address] [place] [facility] Subjective: * Chief Complaints: * 1 . Discuss weight loss. * HPI: G astroenterology: 54 year old male presents with c/o Blood in Stool P t complains of bright red blood in stool for a while . Pt's states that it is a small trace of blood. Patient canceled his repeat colonoscopy last year. c/o appetite P t complains of decreased appetite. Pt states this has been going on for a long time . Pt states he has lost s ome weight. * ROS: D ERMATOLOGY: no R gissell. n o H gelacio. G ASTROENTEROLOGY: no N ausea. n o V omiting. U ROLOGY: no D ifficulty urinating. n o B lood in urine. * Medical History: M yocardial Infarction dx. November 05, 2016, Hypertension, Hyperlipidemia, Kidney Stones, Umbilical hernia, s/p repair, Admitted at [facility], October 2017, acute febrile illness, UTI & pneumonia. * Surgical History: K idney Stone Removal x4 , Umbilical Hernia Repair . * Hospitalization/Major Diagno stic Procedure: [facility] - [place] 11/05-11/13/2016, [facility] - Pneumonia, UTI 11/03-, [facility] - fall 12/2017, [facility] - UTI, Nausea 05/08/2019, [facility] - chest pain, pulled muscle in chest 09/02/2020, [facility]- hypertension 12/30/2020. * Family History: F ather: alive, diagnosed with Heart Disease, Diabetes, Hypertension. M other: alive, family history unknown . S iblings: alive, family history unknown . 1 sister(s) . . * Social History: C URRENT TOBACCO USE: No . P ast smoking status: previous history, 1 ppd history, Started smoking at age 11 and is currently still smoking currently a pack a day. * Medications: T aking Tamsulosin HCl 0.4 MG Capsule 1 capsule Orally Once a day , Taking Metoprolol Succinate 50 MG Capsule ER 24 Hour Sprinkle 1 capsule Orally Once a day , Taking Aspirin Adult Low Dose 81 MG Tablet Delayed Release 1 tab(s) orally once a day , Taking Atorvastatin Calcium 80 MG Tablet 1 tab(s) orally once a day , Taking Xarelto 2.5 MG Tablet 1 tab(s) orally 2 times a day , Discontinued Carvedilol 25 MG Tablet 1 tab(s) orally 2 times a day , Discontinued Isosorbide Mononitrate ER 30 MG Tablet Extended Release 24 Hour 1 tab(s) orally once a day (in the morning) , Discontinued Proctozone-HC 2.5 % Cream 1 application Externally Twice a day , Discontinued Omeprazole 20 MG Capsule Delayed Release 1 cap(s) orally once a day , Discontinued Irbesartan 150 MG Tablet 1 tab(s) orally once a day , Medication List reviewed and reconciled with the patient * Allergies: L isinopril. Objective: * Vitals: W t:182.4, Temp:97.8, BP:160/94, HR:65, O2 Sat:98% on RA, Nurse:jessica, Ht: 72, BMI:24.74. * Examination: G astroenterology: General Appearance: p leasant, NAD. O ral cavity: n ormal. S clera: a nicteric. H eart sounds: r egular, normal S1 S2. L ungs: c lear, no rales or wheezes. A bdomen: B S present, soft, tenderness to palpation at and below the umbilicus, no guarding or rigidity, no masses felt. Assessment: * Assessment: 1. P eriumbilical abdominal pain - R10.33 (Primary) 2 . B RBPR (bright red blood per rectum) - K62.5 3 . W eight loss, unintentional - R63.4 ?4. F atigue, unspecified type - R53.83 5 . E levated PSA - R97.20 & #160; 6 . P rostate cancer screening - Z12.5 7 . E ssential hypertension - I10 8 . C oronary artery disease involving [place] coronary artery of [place] heart without angina pectoris - I25.10 9 . H yperlipidemia, unspecified hyperlipidemia type - E78.5 Plan: * Treatment: Value Reference Range C olor/Clarity yellow/clear * L euk Neg * N itrite Neg * U robili 3.2 * P rotein 1+ * p H 6.0 * B lood 2+ * S p. Gr. 1.020 * K etone Trace * B joce Neg * G krystle Neg * Unique Harmon 07/31/2024 5:45:36 PM > ?LAB: P-Comprehensive Metabolic Panel (CMP) (Collection Date & Time - 08/01/2024 07:45 AM)?Cr 1.32, alk phos 146* Value Reference Range A /G Ratio 1.8 1.1-2.5 - * A lbumin 3.9 3.5-5.3 - g/dL * A lkaline Phosphatase 146 H 40-129 - IU/L * A LT (SGPT) 8 <5-55 - IU/L * A ST (SGOT) 18 <5-46 - IU/L * B ilirubin, Total 0.3 <0.2-1.2 - mg/dL * B UN 9 6-20 - mg/dL * C alcium 9.2 8.6-10.4 - mg/dL * C hloride 99 97-108 - mmol/L * C O2 26 22-32 - mmol/L * C reatinine 1.32 H 0.70-1.30 - mg/dL * G lucose 90 65-99 - mg/dL * P otassium 4.9 3.5-5.3 - mmol/L * S odium 137 135-145 - mmol/L * P rotein 6.1 6.0-8.3 - g/dL * e GFR by Creatinine 65 >59 - mL/min/1.73m2 * Josefina Walker 08/02/2024 3:09: 16 PM >See phone encounter 2.?BRBPR (bright red blood per rectum)?LAB: CBC Venipuncture (in house) (Collection Date & Time - 07/31/2024)? Normal* Value Reference Range w bc 10.0 3.5 - 10 * l ymph 21.5% 15 - 50 * m id 5.3% 2 - 15 * g ran 73.2% 35 - 80 * r bc 5.53 3.5 - 5.5 * h gb 16.8 11.5 - 16.5 * h ct 50.6 35 - 55 * m cv 91.4 75 - 100 * m ch 30.4 25 - 35 * m chc 33.3 31 - 38 * p latlet 400 100 - 400 * Unique Harmon 07/31/2024 5:46:47 PM > Josefina Walker 08/02/2024 3:09:16 PM >See phone encounter ?LAB: P-Comprehensive Metabolic Panel (CMP) (Collection Date & Time - 08/01/2024 07:45 AM)?Cr 1.32, alk phos 146* Value Reference Range A /G Ratio 1.8 1.1-2.5 - * A lbumin 3.9 3.5-5.3 - g/dL * A lkaline Phosphatase 146 H 40-129 - IU/L * A LT (SGPT) 8 <5-55 - IU/L * A ST (SGOT) 18 <5-46 - IU/L * B ilirubin, Total 0.3 <0.2-1.2 - mg/dL * B UN 9 6-20 - mg/dL * C alcium 9.2 8.6-10.4 - mg/dL * C hloride 99 97-108 - mmol/L * C O2 26 22-32 - mmol/L * C reatinine 1.32 H 0.70-1.30 - mg/dL * G lucose 90 65-99 - mg/dL * P otassium 4.9 3.5-5.3 - mmol/L * S odium 137 135-145 - mmol/L * P rotein 6.1 6.0-8.3 - g/dL * e GFR by Creatinine 65 >59 - mL/min/1.73m2 * Josefina Walker 08/02/2024 3:09: 16 PM >See phone encounter 3.?Weight loss, unintentional?LAB: M-H-Jcplgoay Protein (CRP) (Collection Date & Time - 08/01/2024 07:45 AM)?Normal* Value Reference Range C -Reactive Protein (CRP) 0.28 <0.50 - mg/dL * Josefina Walker 08/02/2024 3:09: 16 PM >See phone encounter ?LAB: P-Sed Rate (ESR) (Collection Date & Time - 08/01/2024 07:45 AM)?23* Value Reference Range E rythrocyte Sedimentation Rate (ESR), Automated 23 H <21 - mm/hr * Josefina Walker 08/02/2024 3:09: 16 PM >See phone encounter 4.?Fatigue, unspecified type?LAB: P-Vitamin B12 (Collection Date & Time - 08/01/2024 07:45 AM)?276* Value Reference Range V itamin B12 [phone] - pg/mL * Josefina Walker 08/02/2024 3:09: 16 PM >See phone encounter ?LAB: P-Magnesium (Collection Date & Time - 08/01/2024 07:45 AM)?Normal* Value Reference Range M agnesium 2.4 1.6-2.4 - mg/dL * Josefina Walker 08/02/2024 3:09: 16 PM >See phone encounter ?LAB: P-Phosphorus (Collection Date & Time - 08/01/2024 07:45 AM)?Normal* Value Reference Range P hosphorus 3.2 2.5-4.5 - mg/dL * AaronJosefina 08/02/2024 3:09: 16 PM >See phone encounter ?LAB: P-TSH reflex to FT4 (Collection Date & Time - 08/01/2024 07:45 AM)? Normal* Value Reference Range T SH reflex to FT4 4.09 0.43-5.25 - mU/L * Josefina Walker 08/02/2024 3:09: 16 PM >See phone encounter ?LAB: P-Vitamin D 25-Hydroxy (Collection Date & Time - 08/01/2024 07:45 AM)? Normal* Value Reference Range V itamin D 25-Hydroxy 13.1 L 30.0-100.0 - ng/mL * Josefina Walker 08/02/2024 3:09: 16 PM >See phone encounter 5.?Elevated PSA?LAB: P-PSA Free and Total (Collection Date & Time - 08/01/2024 07:45 AM)? Normal* Value Reference Range P SA 3.43 <4.00 - ng/mL * P SA Free 0.57 - ng/mL * f PSA, PCT 16.62 - % * Josefina Walker 08/02/2024 3:09: 16 PM >See phone encounter 6.?Prostate cancer screening?LAB: P-PSA Free and Total (Collection Date & Time - 08/01/2024 07:45 AM)? Normal* Value Reference Range P SA 3.43 <4.00 - ng/mL * P SA Free 0.57 - ng/mL * f PSA, PCT 16.62 - % * Josefina Walker 08/02/2024 3:09: 16 PM >See phone encounter 7.?Essential hypertension? Refill Metoprolol Succinate Capsule ER 24 Hour Sprinkle, 50 MG, 1 capsule, Orally, Once a day, 30 days, 30, Refills 5.?LAB: P-Microalbumin/Creatinine, Random Urine Sample* Josefina Walker 08/02/2024 3:05: 28 PM > [facility] states no specimen. Needs to be recollected.Unique Harmon 08/08/2024 11:44:21 AM > Pt informed, states he will return to office twyla to leave urine sample 8.?Coronary artery disease involving [place] coronary artery of [place] heart without angina pectoris? Refill Aspirin Adult Low Dose Tablet Delayed Release, 81 MG, 1 tab(s), orally, once a day, 30 days,30, Refills 5.??9.?Hyperlipidemia, unspecified hyperlipidemia type? Refill Atorvastatin Calcium Tablet, 80 MG, 1 tab(s), orally, once a day, 30 days, 30, Refills 5. ?10.?Others? Refill Xarelto Tablet, 2.5 MG, 1 tab(s), orally, 2 times a day, 30 days, 60, Refills 5;?RefillTamsulosin HCl Capsule, 0.4 MG, 1 capsule, Orally, Once a day, 30 days, 30, Refills 5.?? * Procedure Codes: 9 4760 [place], [address] CBC WITH AUTO DIFF, 71896 VENIPUNCT, ROUTINE*, 47309 Urinalysis, no micro, 3077F SYST BP = 140 MM HG6 IT, 3080F DIAST BP = 90 MM HG * Follow Up: v ia phone to report test results * Images: Billing Information: * Visit Code: 52628 Office Visit, Est Pt., Level 4. * Procedure Codes: [address] [place]. [address] CBC WITH AUTO DIFF. 99749 VENIPUNCT, ROUTINE*. 13263 Urinalysis, no micro. 3077F SYST BP = 140 MM HG6 IT. 3080F DIAST BP = 90 MM HG. * Electronic signature of Vida Lam MD on 02/06/2025 at 05:39 PM EDT Sign off status: Pending * Provider: Fab Lam M.D. Date: 0 07/31/2024 Generated for Joaquín richards/Manjeet/Maria Luz on: 0 02/06/2025 05:39 PM EDT History and Physical Notes * HPI (History of Present Illness) Category Sub-Category Detail Notes Category Not es Gastroenterology Blood in Stool Pt complains of bright red blood in stool for a while . Pt's states that it is a small trace of blood. Patient canceled his repeat colonoscopy last year appetite Pt complains of decr eased appetite. Pt states this has been going on for a long time . Pt states he has lost some weight Examination Category Sub-Category Detail Notes Category Not es Gastroenterology Oral cavity: normal Sclera: anicteric Heart sounds: regular, normal S1 S 2 Lungs: clear, no rales or w heezes Abdomen: BS present, soft, te nderness to palpation at and below the umbilicus, no guarding or rigidity, no masses felt General Appearance: pleasant, NAD
--- OUTSIDE RECORDS SUMMARY | 2025-02-06 17:40 | XMS_ITS | Clinical Summary ---
Author Organization [facility] Address [address] [place] [address] Phone Care Team Providers Care Registered Nurse Renal Name Role Phone Unavailable Primary Care Provider Unavailabl e Allergies Active Allergy Reactions Criticality Noted Date Comments No Known Allergies 03/31/2011 Medications albuterol (PROVENTIL) 5 mg/mL Inhl Solution for Nebulization Take by nebulization continuous. Active albuterol (PROVENTIL HFA;VENTOLIN HFA) 90 mcg/actuation Inhl HFA Aerosol Inhaler Inhale 2 Puffs into the lungs every 6 hours as needed for Wheezing. Active amLODIPine (NORVASC) 10 mg Oral Tablet Take by mouth daily. Active isosorbide mononitrate (IMDUR) 30 mg Oral Tablet Sustained Release 24 hr Take 30 mg by mouth. Active cloNIDine HCl (CATAPRES) 0.1 mg Oral Tablet Take by mouth every 8 hours. Active carvedilol (COREG) 12.5 mg Oral Tablet Take 12.5 mg by mouth 2 times daily. Active hydroCHLOROthiaz kamron (HYDRODIURIL) 25 mg Oral Tablet Take by mouth 2 times daily. Active methylPREDNISolo ne (MEDROL DOSPACK) 4 mg Oral Tablets, Dose Pack Take by mouth daily. follow package directions Active levoFLOXacin (LEVAQUIN) 750 mg Oral Tablet Take 750 mg by mouth daily. Active Active Problems No known active problems Surgical History Surgery Date Site/Laterality Comments KIDNEY SURGERY stents 2 UMBILICAL HERNIA REPAIR 04/28/2011 N/A UMBILICAL HERNIA REPAIR ; Surgeon: Jg Mendes MD; Location: [facility] MAIN OR; Service: General HERNIA REPAIR Medical History Medical History Date Comments Umbilical hernia Kidney stone Hyperlipidemia Heart attack (HCC) Family History Medical History Relation Name Comments Diabetes Father High Blood Pressure Father Anesth Problems Neg Hx Relation Name Status Comments Father Social History Tobacco Use Types Packs/Day Years Used Date Smoking Tobacco: Every Day Cigarettes 1.5 27 Tobacco Cessation:Counseling Given: No Alcohol Use Standard Drinks/Week Comments No 0 (1 standard drink = 0.6 oz pur e alcohol) Sex and Gender Information Value Date Recorded Sex Assigned at Not on file Legal Sex Male 1:53 AM EDT Gender Identity Not on file Sexual Orientation Not on file Obstetrics History Last Filed Vital Signs Vital Sign Reading Time Taken Comments Blood Pressure 130/90 11/17/2016 10:18 AM EDT Pulse 88 11/17/2016 9:12 AM EDT Temperature 36.7 C (98.1 F) 11/17/2016 9:12 AM EDT Respiratory Rate 18 11/17/2016 9:12 AM EDT Oxygen Saturation 98% 11/17/2016 9:12 AM EDT Inhaled Oxygen Concentration - - Weight 75.6 kg (166 lb 9.6 oz) 11/17/2016 9:12 A M EDT Height 180.3 cm (5' 11 ) 11/17/2016 9:12 AM EDT Body Mass Index 23.24 11/17/2016 9:12 AM EDT Plan of Treatment Health Maintenance Due Date Last Done Comments Annual Wellness Exam 1975 DTaP/TDaP/Td (1 - Tdap) 1991 Hepatitis B Vaccine (1 of 3 - 19+ 3-dose series) 1991 Cologuard 2017 Colon Cancer Screening 2017 Colonoscopy 2017 FIT 2017 Sigmoidoscopy 2017 Virtual Colonography 2017 Low Dose Lung Cancer Screening 2022 Pneumococcal Vaccine 50+ (1 of 1 - PCV) 2022 Zoster (1 of 2) 2022 COVID-19 Vaccine ( - 2023-2 5 season) 2024 Influenza Vaccine (#1) 2025 Meningococcal B Vaccine Aged Out No l onger eligible based on patient's age to complete this topic Goals Goal Patient Goal Type Associated Problems Recent Progress Patient-Stated? Author Maintain a healthy diet, exercise regularly and maintain an ideal body weight General No Olivia Bryant RMA Stay Tobacco Free Lifestyle No Olivia Bryant RMA Insurance [facility] [place] [address] [facility] [place] [address]
--- OUTSIDE RECORDS SUMMARY | 2025-02-06 17:40 | XMS_ITS | Patient Health Record ---
[facility] [address] [facility] [address] [place] [id number] Care Team Providers Care Book Or Script Editor Name Role Phone Rohan Lam Primary Care Provider Allergies Allergen (clinical drug ingredient) Drug/Non Drug [...] Interpretation:276 Performing Lab: Notes/Report: Test performed by [facility] [address] [place] [address] , [address], [place] [address] Shorty Fishman MD, Gaming Pit [employer] CLIA: [id number] Vitamin B12 399 101-4768 pg/mL P-Comprehensive Metabolic Pa rodri (CMP) Reviewed date:08/02/2024 03:09:23 PM Interpretation:Cr 1.32, alk phos 146 Performing Lab: Notes/Report: Test performed by [facility] [address] [place] [address] , [address], [place] [address] Shorty Fishman MD, Gaming Pit Boss CLIA: [id number] Sodium 137 135-145 mmol/L Potassium 4.9 3.5-5.3 [...] 0.3 <0.2-1.2 mg/dL A/G Ratio 1.8 1.1-2.5 H-O-Hdpmjmyj Protein (CRP) Reviewed date:08/02/2024 03:09:23 PM Interpretation: Normal Performing Lab: Notes/Report: Test performed by [facility] [address] [place] [address] , [address], [place] [address] Shorty Fishman MD, Gaming Pit [employer] CLIA: [id number] C-Reactive Protein (CRP) 0.28 <0.50 mg/dL P-Sed Rate (ESR) Reviewed date:08/02/2024 03:09:23 PM Interpretation:23 Performing Lab: Notes/Report: Test performed by [facility] [address] [place] [address] Renu [address], [address], [place] [address] Shorty Fishman MD, Gaming Pit Boss CLIA: [id number] Erythrocyte Sedimentation Rate (ESR), Automated 23 <21 mm/hr P-Magnesium Reviewed date:08/02/2024 03:09:23 PM Interpretation: Normal Performing Lab: Notes/Report: Test performed by [facility] [address] [place] [address] , [address], [place] [address] Shorty Fishman MD, Gaming [employer] CLIA: [id number] Magnesium 2.4 1.6-2.4 mg/dL P-Phosphorus Reviewed date:08/02/2024 03:09:23 PM Interpretation: Normal Performing Lab: Notes/Report: Test performed by [facility] [address] , [address], [place] [address] Shorty Fishman MD, Gaming Pit Boss CLIA: [id number] Phosphorus 3.2 2.5-4.5 mg/dL P-PSA Free and Total Reviewed date:08/02/2024 03:09:23 PM Interpretation: Normal Performing Lab: Notes/Report: Test performed by [facility] [address] , [address], [place] [address] Shorty Fishman MD, Gaming Pit Boss CLIA: [id number] PSA 3.43 <4.00 ng/mL Please note this is an ultrasensitive PSA assay with a lower limit of detection of 0.014 ng/mL. This test is performed by the [employer] ECLIA methodology. Values obtained with different assay [...] Normal Performing Lab: Notes/Report: Test performed by [facility] [address] [place] [address] , [address], [place] [address] Shorty Fishman MD, Gaming Pit Boss CLIA: [id number] TSH reflex to FT4 4.09 0.43-5.25 mU/L P-Vitamin D 25-Hydroxy Reviewed date:08/02/2024 03:09:23 PM Interpretation: Normal Performing Lab: Notes/Report: Test performed by [facility] [address] [place] [address] , [address], [place] [address] Shorty Fishman MD, Gaming Pit Boss CLIA: [id number] Vitamin D 25-Hydroxy 13.1 30.0-100.0 ng/mL Interpretation of Vitamin D 25 OH: < 20 ng/mL - Deficiency 20 - 29 ng/mL - Insufficiency 30 - 100 ng/mL - Sufficiency > 100 ng/mL - Super-therapeutic- toxicity may occur above this level. Clinical correlation required. Reason For Referral No Information Medications Medication SIG (Take, Route, Frequency, Duration) Notes Start Date End Date Status Atorvastatin Calcium 80 MG 1 tab(s) oral ly once a day; Duration: 30 days Active Xarelto 2.5 MG 1 tab(s) orally 2 ti mes a day; Duration: 30 days Active Aspirin Adult Low Dose 81 MG 1 tab(s) orally once a day; Duration: 30 days Active Vitamin D3 1.25 MG (49629 UT) 1 capsule Orally Once a week 08/02/2024 Active Tamsulosin HCl 0.4 MG 1 capsule Orally O nce a day; Duration: 30 days Active Metoprolol Succinate 50 MG 1 capsule Ora lly Once a day; Duration: 30 days Active Vitamin B12 1000 MCG 1 tablet Orally Onc e a day OTC 08/02/2024 Active Waannehp-Hfshrzsof-LR 2-30-10 MG/5ML 5 ml Orally every 4 hours as needed 09/09/2024 Active Problems Problem Type SNOMED Code ICD Code Onset Dates Problem Status W/U Status Risk Notes Problem Essential hypertension (26378371) Essential hypertension (I10) Active confirmed Problem Polyp of colon (disorder) (48211936) Colon polyps (K63.5) Active confirmed Problem Atherosclerotic heart disease of [place] coronary artery without angina pectoris (870494660674862) Coronary artery disease involving [place] coronary artery of [place] heart without angina pectoris (I25.10) Active confirmed Problem Leukocytosis (397534720) Leukocytosis, unspecified type (D72.829) Active confirmed Problem Hyperlipidaemia (97960038) Hyperlipidemia, unspecified hyperlipidemia type (E78.5) Active confirmed Problem Tobacco user (902082601) Cigarette nicotine dependence without complication (F17.210) Active confirmed Problem Benign prostatic hypertrophy without outflow obstruction (570904962) BPH without urinary obstruction (N40.0) Active confirmed Problem Kidney stone (64121701) Bilateral kidney stones (N20.0) Active confirmed Problem Nephrosclerosis (20410197) Kidney atrophy (N26.1) Active confirmed Problem Chronic kidney disease stage 3A (672056130) Stage 3a chronic kidney disease (N18.31) Active confirmed Vital Signs Heart Rate 65 /min 07/31/2024 Blood pressure diastolic 94 mm Hg 07/31/2024 Height 72 in 07/31/2024 Blood pressure systolic 160 mm Hg 07/31/2024 Weight 182.4 lbs 07/31/2024 BMI 24.74 kg/m2 07/31/2024 Encounters Encounter Location Date [facility] [address] [place] [id number] 07/31/2024 Rohan [place] Periumbilical abdomi nal pain R10.33 ; BRBPR (bright red blood per rectum) K62.5 ; Weight loss, unintentional R63.4 ; Fatigue, unspecified type R53.83 ; Elevated PSA R97.20 ; Prostate cancer screening Z12.5 ; Essential hypertension I10 ; Coronary artery disease involving [place] coronary artery of [place] heart without angina pectoris I25.10 and Hyperlipidemia, unspecified hyperlipidemia type E78.5 [facility] [address] [place], [place] [id number] 08/02/2024 [place] [facility] [place] [id number] [place], [place] [phone] 09/08/2024 Rohan [place] Assessments Encounter Date Diagnosis (ICD Code) Assessment [...] - I10) 07/31/2024 Coronary artery disease involving [place] coronary artery of [place] heart without angina pectoris (ICD-10 - I25.10) 07/31/2024 Hyperlipidemia, unspecified hyperlipidemia type (ICD-10 - E78.5) Plan Of Treatment Pending Test Test Name Order Date colonoscopy 07/26/2023 P-Microalbumin/Creatinine, Random Urine Sample 07/31/2024 Insurance Providers Payer Name Payer Address Payer Phone Subscriber Number Group Number Insured Name Patient Relationship to Insured Coverage Start Date Coverage End Date [employer] [address] [place] [address] [id number] [employer] [place] Self - patient is the insured Medical (General) History Medical History History ICD Code Myocardial Infarction dx. November 05, 2016 hypertension hyperlipidemia Kidney Stones Umbilical hernia, s/p repair Admitted at [facility], October 2017, acute febrile illness, UTI & pneumonia Surgical History Surgery Date(Month/Year) Kidney Stone Removal x4 Umbilical Hernia Repair Hospitalization History Reason Date(Month/Year) [facility]- hypertension 12/30/[address] [facility] - MD 11/05- 7 [facility] - Pneumonia, UTI 11/03- [facility] - fall 12/2017 [facility] - UTI, Nausea 05/08/2019 [facility] - chest pain, pulled muscl e in chest 09/02/2020
--- OUTSIDE RECORDS SUMMARY | 2025-02-06 17:40 | XMS_ITS | Clinical Summary ---
Author Organization [facility] Address [address] [place] [address] Care Team Providers Care Photovoltaic Solar Cell Designer Name Role Phone Rohan Lam MD Primary Care Provider + [phone] Allergies Active Allergy Reactions Criticality Noted Date Comments Lisinopril Unknown - Patient st ates they do not know rxn details Low 07/11/2019 Medications atorvastatin (Lipitor) 80 MG tablet TAKE 1 TABLET DAILY. 07/11/2019 Active carvedilol (Coreg) 25 MG tablet TAKE 1 TABLET TWICE DAILY. 07/11/2019 Active Xarelto 2.5 MG tablet Take 1 tablet (2.5 mg) by mouth 2 (two) times a day. 10/19/2021 Active aspirin 81 MG EC tablet Take 1 tablet (81 mg) by mouth 1 (one) time each day. Active tamsulosin (Flomax) 0.4 MG 24 hr capsule 1 capsule (0.4 mg). 08/02/2023 Active Active Problems Problem Noted Date Diagnosed Date Proteinuria 12/22/2021 Atrophic kidney 07/31/2019 Vitamin D deficiency 07/31/2019 Hypertension 07/11/2019 CKD (chronic kidney disease) stage 3, GFR 30-59 ml/min 06/30/2019 Family History Medical History Relation Name Comments Cardiac disorder Father Joel Diabetes Father Joel Hypertension Father Joel Relation Name Status Comments Father Joel Social History Tobacco Use Types Packs/Day Years Used Date Smoking Tobacco: Every Day Cigarettes 1.5 32 Passive Smoke Exposure: Past Smokeless Tobacco: Never Tobacco Cessation:Ready to Q uit: Not Asked; Counseling Given: Not Answered Alcohol Use Standard Drinks/Week Comments Never 0 (1 standard drink = 0.6 oz pur e alcohol) PHQ-2 Answer Date Recorded Patient Health Questionnaire-2 Score 0 09/21/2023 Sex and Gender Information Value Date Recorded Sex Assigned at Male 12/26/2021 10:16 AM EDT Legal Sex Male 7:38 PM EDT Gender Identity Male 12/26/2021 10:16 AM EDT Sexual Orientation Not on file Last Filed Vital Signs Vital Sign Reading Time Taken Comments Blood Pressure 154/87 01/28/2024 9:21 AM EDT Pulse 63 01/28/2024 9:21 AM EDT Temperature 36.3 C (97.4 F) 09/21/2023 12:57 PM EDT Respiratory Rate 18 01/14/2023 4:35 PM EDT Oxygen Saturation 96% 01/28/2024 9:21 AM EDT Inhaled Oxygen Concentration - - Weight 86.6 kg (191 lb) 01/28/2024 9:21 AM EDT Height 182.9 cm (6') 09/21/2023 12:57 PM EDT Body Mass Index 25.9 09/21/2023 12:57 PM EDT Plan of Treatment Upcoming Encounters Date Type Department Care Team (Late st Contact Info) Description 02/16/2025 9:20 AM EDT Office Visit [facility] [address] [place] [address] Virgil Julio MD [address] [place] [phone] Health Maintenance Due Date Last Done Comments [facility]-HIV Screening 1972 [facility]-Hepatitis C Screening 1972 [facility]-Infant/Child/Adol SDOH Screenings 1972 [facility]- SDOH Screenings 1990 [facility]-Adult SDOH Screenings 1990 [facility]-DTaP,Tdap,and Td Vaccine s (1 - Tdap) 1991 [facility]-Hepatitis B Vaccines (1 of 3 - 19+ 3-dose series) 1991 CT Colonography 2017 Colonoscopy 2017 FIT-DNA 2017 FIT 2017 FOBT 2017 Sigmoidoscopy 2017 [facility]-Colorectal Cancer Screening 2017 [facility]-Pneumococcal Vaccine: 50 + Years (1 of 1 - PCV) 2022 [facility]-Zoster Vaccines (1 of 2) 2022 [id number] Vaccine (1 - season) 2024 [facility]-Depression Screening 09/20/2024 09/21/2023 [facility]-Influenza Vaccine (#1) 2025 [facility]-Obesity Intervention Completed 024, 09/21/2023 HPV Vaccines Aged Out No longer eligi ble based on patient's age to complete this topic [facility]-HIB Vaccines Aged Out No longer e ligible based on patient's age to complete this topic [facility]-Hepatitis A Vaccines Aged Out No longer eligible based on patient's age to complete this topic [facility]-IPV Vaccines Aged Out No longer e ligible based on patient's age to complete this topic [facility]-Rotavirus Vaccines Aged Out No lo nger eligible based on patient's age to complete this topic Insurance [facility] [employer] [facility] [place] [phone] ANTH Care Teams Photovoltaic Solar Cell Designer Relationship Specialty Start Date End Date Rohan Lam MD [address] [place] [id number] PCP - General 10/25/20
[2025-02-06 17:46] LABS: Microscopic, Urine URINE MICROSCOPIC (MICROSCOPIC)
[2025-02-06 18:07] LABS: Hematocrit 47.3 % (42.0-52.0); Hemoglobin 16.2 g/dL (14.1-18.0); Mean Corpuscular HGB Conc 34.2 g/dL (31.8-35.4); Mean Corpuscular Hemoglobin 30.9 pg (27.0-31.2); Mean Corpuscular Volume 90.1 fl (80-94); Nucleated Red Blood Cells % 0 %; Platelet Count 308 K/mm3 (142-424); Red Blood Count 5.25 M/mm3 (4.60-6.20); Red Cell Distribution Width-SD 43.8 fL; White Blood Count 11.3 K/mm3 (4.8-10.8)
[2025-02-06 18:32] LABS: Bilirubin,Urine Negative (Negative); Color,Urine YELLOW (Yellow); Glucose,Urine (UA) Negative (Negative); Ketones,Urine Negative (Negative); Leukocyte Esterase,Urine 1+ (Negative); PH,Urine 6.0 (5.0-8.5); Protein,Urine TRACE (Negative); Specific Gravity, Urine 1.020 (1.005-1.030); Urobilinogen,Urine 0.2 EU/dl (0.2)
[2025-02-06 18:56] LABS: Albumin Level 4.0 g/dl (3.5-5.0); Anion Gap 14.0 mEq/L (5-15); Blood Urea Nitrogen 13 mg/dl (9-20); Calcium 9.5 mg/dl (8.4-10.2); Carbon Dioxide 24 mmol/L (22.0-30.0); Chloride 101 mmol/L (98-107); Creatinine,Serum 1.40 mg/dl (0.66-1.25); Estimated Glomerular Filt Rate 53 ml/min (>60); GFR (African American) 64 ML/MIN (>60); Glucose 140 mg/dl (74-100); Phosphorous 3.3 mg/dl (2.5-4.5); Potassium 4.0 mmoL/L (3.5-5.1); Sodium 135 mmol/L (136-145)
[2025-02-06 18:57] LABS: Bacteria,Urine 1+ /lpf
== END 2025-02-06 23:59 | disposition home or self-care (01) ==
LOC: LAB 17:38
PROVIDERS: PCP Family Medicine
DX: N18.31 Chronic kidney disease, stage 3a (principal)
CPT/HCPCS: 36415; 80069; 81001; 84156; 85027; 87086